=== PATIENT | female | born 1950 | race Caucasian/White ===

== ENCOUNTER 2021-12-22 11:43 | Emergency (ER) | payer MEDICARE, SELFPAY ==
--- NOTE | ~2021-12-22 | CT_ITS ---
EXAMINATION: CT ABDOMEN AND PELVIS WITH CONTRAST CLINICAL INFORMATION: Anorexia with history of ulcerative colitis COMPARISON: None TECHNIQUE: Multidetector volumetric images were obtained from the superior aspect of the liver through the pubic symphysis following administration 100 mL of Omnipaque 350 intravenous contrast. Sagittal and coronal reformatted images were obtained on the technologist's workstation. Oral contrast: No This CT examination was performed using dose optimization techniques as appropriate, variously including the following: *Automated exposure control *Adjustment of mA and/or kV according to patient size (this includes techniques or standardized protocols for targeted exams where dose is matched to indication/reason for exam; i.e. extremities or head) *Use of iterative reconstruction technique DLP: 324 mGy-cm FINDINGS: LUNG BASES: The visualized lung bases are unremarkable. LIVER, GALLBLADDER, AND BILIARY TREE: The liver is normal in size, shape, and attenuation. No focal hepatic lesion or biliary ductal dilatation is present. The gallbladder is unremarkable with no evidence of radiopaque gallstones, gallbladder wall thickening, or obvious pericholecystic inflammatory changes. PANCREAS: Unremarkable. SPLEEN: Unremarkable. Multiple tiny splenic hypodensities are seen which are of no concern. ADRENAL GLANDS: Unremarkable. KIDNEYS AND URETERS: The kidneys are normal in size, shape, and attenuation of parapelvic cyst is present at the upper pole of the right kidney. No solid renal masses. No hydronephrosis, hydroureter, or calculi seen. No perinephric stranding. BLADDER: Unremarkable. GASTROINTESTINAL TRACT: A large stool ball is present in the rectum. The small and large bowel are unremarkable. The appendix is unremarkable. ABDOMINAL WALL: No significant hernia is appreciated. LYMPH NODES: No retroperitoneal lymphadenopathy. VASCULAR: Mild calcific plaque without aneurysm. PELVIC VISCERA: An retroverted uterus is present with some heterogeneity and some punctate calcifications possibly representing fibroids. At least 2 cysts are noted in the right ovary the largest measuring about 2 cm in size. There is a larger 4.9 x 4.7 x 4.7 cm cyst in the left adnexa anteriorly. Pelvic ultrasound would be a much better modality for evaluation. No free intraperitoneal fluid is seen. An abnormal adnexal mass is not seen. OSSEOUS STRUCTURES: Degenerative changes are noted throughout the spine. There is a compression fracture of the superior endplate of L3 which could be acute. There is grade 1 anterolisthesis L4 upon L5. CT/CT abdomen pelvis w IV con IMPRESSION: 1. No acute bowel process. 2. Bilateral ovarian cysts and probable uterine fibroid. Pelvic ultrasound is recommended for further evaluation. 3. Other incidental findings as described above including possible acute compression fracture superior endplate of L3.. Fleischner guidelines were followed.
[2021-12-22 11:46] VITALS: BP 103/70; PULSE 98; RESP 18; TEMP 36.2; O2SAT 99; BMI 18.9
--- NOTE | 2021-12-22 11:47 | ED_ITS ---
HPI - General Adult General Chief complaint: Weakness <Martha Peters MD - Last Filed: 12/22/21 11:56> Stated complaint: Weakness/Not eating <Martha Peters MD - Last Filed: 12/22/21 11:56> Time Seen by Provider: 12/22/21 18:10 <Martha Peters MD - Last Filed: 12/22/21 11:56> Source: patient and family <Mitesh Plasencia MD - Last Filed: 12/23/21 01:00> Mode of arrival: ambulatory <Mitesh Plasencia MD - Last Filed: 12/23/21 01:00> Limitations: no limitations <Mitesh Plasencia MD - Last Filed: 12/23/21 01:00> History of Present Illness HPI narrative: Patient with history of ulcerative colitis never had any colonoscopy comes here for poor appetite for last few months and increased depression. Patient's boyfriend for 40 years in 06/29 since then patient is going downhill feel more depressed does not feel hungry and if she eats fast feel nauseated denies any abdominal pain no diarrhea no blood in the stool patient lost few lb <Mitesh Plasencia MD - Last Filed: 12/23/21 01:00> Related Data Home medications: Previous Rx's Medication Instructions Recorded lorazepam 0.5 mg tablet (Ativan) 0.5 mg PO BEDTIME PRN sleep #14 12/22/21 tabs ondansetron 4 mg disintegrating 4 mg PO Q6-8H PRN nausea and 12/22/21 tablet vomiting #7 tabs pantoprazole 20 mg tablet,delayed 20 mg PO DAILY #30 tabs 12/22/21 release (Protonix) <Martha Peters MD - Last Filed: 12/22/21 11:56> Allergies/adverse reactions: Allergies Allergy/AdvReac Type Severity Reaction Status Date / Time Clinoril Allergy Unknown Rash Verified 11/28/21 15:40 doxycycline AdvReac Unknown VOMITING Verified 11/28/21 15:40 <Martha Peters MD - Last Filed: 12/22/21 11:56> Review of Systems Review of Systems: Yes all other systems are reviewed and are negative <Mitesh Plasencia MD - Last Filed: 12/23/21 01:00> [facility] Social History Social History: Social History Advance Directives: No Advance Directives Information Provided: No <Martha Peters MD - Last Filed: 12/22/21 11:56> Physical Exam ED Vital Signs: Vital Signs - 24 hr 12/22/21 11:46 12/22/21 18:36 Temperature 97.2 F Pulse Rate 98 74 Respiratory Rate 18 14 Blood Pressure 103/70 Pulse Oximetry 99 98 Oxygen Delivery Method Room Air Room Air BMI result Body Mass Index 18.9 <Martha Peters MD - Last Filed: 12/22/21 11:56> Vital Signs - 24 hr 12/22/21 11:46 12/22/21 18:36 Temperature 97.2 F Pulse Rate 98 74 Respiratory Rate 18 14 Blood Pressure 103/70 Pulse Oximetry 99 98 Oxygen Delivery Method Room Air Room Air BMI result Body Mass Index 18.9 <Mitesh Plasencia MD - Last Filed: 12/23/21 01:00> Appearance: Alert. Oriented X3. No acute distress. Cachectic with low muscle mass Eyes: No pallor or icterus ENT: Pharynx normal. Oral Mucosa moist Neck: Normal inspection. Neck supple. CVS: Normal heart rate and rhythm. Pulses normal. Respiratory: No respiratory distress. Equal air entry bilateral, no wheezing/rales/rhonchi Abdomen: Soft and nontender. Bowel sounds are present, no mass palpable Skin: Skin warm and dry. Normal skin color. Normal skin turgor. Extremities: No lower extremity edema. No calf tenderness Neuro: Oriented X 3. No motor deficit. <Mitesh Plasencia MD - Last Filed: 12/23/21 01:00> Course Course Course Narrative: -pt c/o sick for couple of weeks: c/o of [place], weak, lost weight, no diarrhea -1 year gradual weight loss 100lbs, most noticible in last year, denies bloody stool/no black stool, believes she has never had a colonoscopy -fluids dont stay down/ vomiting, no abdominal pain, no URI or UTI symptoms -PMH:hx colitis in the last 2 years -retired 1 month ago, working at [employer] -at baseline, pt able to walk with cane, stand up along, but now too weak, needs asistance to stand up, lives with her son -PE: able to stand with asistance -f/u labs, urine <Martha Peters MD - Last Filed: 12/22/21 11:56> Medications Administered Discontinued Medications Generic Name Dose Route Start Last Admin Trade Name Freq PRN Reason Stop Dose Admin Famotidine 20 mg 12/22/21 18:45 12/22/21 19:37 Famotidine/Pf 20 Mg/2 Ml Vial IVPUSH 12/22/21 18:46 20 mg ONCE ONE Administration Sodium Chloride 1,000 mls @ 999 mls/hr 12/22/21 18:32 12/22/21 22:09 Ns IV 12/22/21 19:32 Infused .Q1H1M ONE Infusion Iohexol 100 ml 12/22/21 19:01 12/22/21 19:02 Iohexol 350 Mg/Ml 100 Ml Infus..Btl IV 12/22/21 19:02 100 ml ONCE ONE Administration Ondansetron HCl 4 mg 12/22/21 18:45 12/22/21 19:37 Ondansetron Hcl 4 Mg/2 Ml Vial IVPUSH 12/22/21 18:46 4 mg ONCE ONE Administration <Martha Peters MD - Last Filed: 12/22/21 11:56> Medications Administered Discontinued Medications Generic Name Dose Route Start Last Admin Trade Name Freq PRN Reason Stop Dose Admin Famotidine 20 mg 12/22/21 18:45 12/22/21 19:37 Famotidine/Pf 20 Mg/2 Ml Vial IVPUSH 12/22/21 18:46 20 mg ONCE ONE Administration Sodium Chloride 1,000 mls @ 999 mls/hr 12/22/21 18:32 12/22/21 22:09 Ns IV 12/22/21 19:32 Infused .Q1H1M ONE Infusion Iohexol 100 ml 12/22/21 19:01 12/22/21 19:02 Iohexol 350 Mg/Ml 100 Ml Infus..Btl IV 12/22/21 19:02 100 ml ONCE ONE Administration Ondansetron HCl 4 mg 12/22/21 18:45 12/22/21 19:37 Ondansetron Hcl 4 Mg/2 Ml Vial IVPUSH 12/22/21 18:46 4 mg ONCE ONE Administration <Mitesh Plasencia MD - Last Filed: 12/23/21 01:00> Medical Decision Making MDM Narrative Medical decision making narrative: Patient with increased depression secondary to loss of her friend for 40 years poor intake likely from depression CT scan of the abdomen was negative for acute pathology will discharge patient home on Ativan Pepcid and Zofran patient stayed with her son will follow with her PCP <Mitesh Plasencia MD - Last Filed: 12/23/21 01:00> Lab Data Lab results reviewed: Yes I reviewed the patient's lab results. <Mitesh Plasencia MD - Last Filed: 12/23/21 01:00> Result diagrams: : 12/22/21 12:12 12/22/21 12:12 <Martha Peters MD - Last Filed: 12/22/21 11:56> Labs: Lab Results 12/22/21 12/22/21 12/22/21 Range/Units 12:12 12:12 12:12 WBC 6.7 (4.8-10.8) X10*3/uL RBC 5.60 H (4.20-5.50) X10*6/uL Hgb 17.5 H (12.0-16.0) g/dl Hct 50.7 H (37.0-47.0) % MCV 90.5 (80.0-98.0) fL MCH 31.3 (27.0-33.0) pg MCHC 34.5 (31.0-35.0) g/dl RDW 13.9 (11.0-16.0) % Plt Count TNP MPV Not Reportable Immature Gran % (Auto) 0.7 H (0.0-0.4) % Neut % (Auto) 80.3 H (45-73) % Lymph % (Auto) 11.3 L (20-40) % [place] % (Auto) 6.3 (2-11) % Eos % (Auto) 0.7 (0-4) % Baso % (Auto) 0.7 (0-2) % Lymph # (Auto) 0.8 L (1.2-4.9) X10*3/uL [place] # (Auto) 0.4 (0.1-1.2) X10*3/uL Eos # (Auto) 0.1 (0.0-0.4) X10*3/uL Baso # (Auto) 0.1 (0.0-0.2) X10*3/uL Abs Immat Gran (auto) 0.05 H (0.00-0.03) X10*3/uL Absolute Neuts (auto) 5.4 (2.0-8.3) x10*3/uL Absolute Nucleated RBC 0.000 (0.0-0.012) X10*3/uL Nucleated RBC % (auto) 0.0 (0.0-0.2) /100WBC Smear Tech's Comments VERIFIED Sodium 137 (135-145) mmol/L Potassium 3.5 (3.3-5.1) mmol/L Chloride 80 L (96-108) mmol/L Carbon Dioxide 26 (22-29) mmol/L Anion Gap 35 H (12-20) BUN 11 (9-16) mg/dL Creatinine 0.96 (0.5-1.4) mg/dL Estim Creat Clear Calc 39.3 Estimated GFR 57 Random Glucose 59 L* (60-115) mg/dL Calcium 9.9 (8.4-10.2) mg/dL Magnesium 1.9 (1.6-2.6) mg/dL Total Bilirubin 1.1 H (0.0-1.0) mg/dL Direct Bilirubin 0.6 H (0.0-0.5) mg/dL AST 38 H (5-31) U/L ALT 29 (0-31) U/L Alkaline Phosphatase 60 (39-117) U/L Troponin I High Sens 38.5 H (<3.5-17.0) ng/L Total Protein 6.8 (6.5-8.0) g/dL Albumin 4.3 (3.5-5.0) g/dL Lipase 20 (8-78) U/L COVID-19 (CHARISSA) (Negative) COVID-19 Clin Com 12/22/21 Range/Units 12:12 WBC (4.8-10.8) X10*3/uL RBC (4.20-5.50) X10*6/uL Hgb (12.0-16.0) g/dl Hct (37.0-47.0) % MCV (80.0-98.0) fL MCH (27.0-33.0) pg MCHC (31.0-35.0) g/dl RDW (11.0-16.0) % Plt Count MPV Immature Gran % (Auto) (0.0-0.4) % Neut % (Auto) (45-73) % Lymph % (Auto) (20-40) % [place] % (Auto) (2-11) % Eos % (Auto) (0-4) % Baso % (Auto) (0-2) % Lymph # (Auto) (1.2-4.9) X10*3/uL [place] # (Auto) (0.1-1.2) X10*3/uL Eos # (Auto) (0.0-0.4) X10*3/uL Baso # (Auto) (0.0-0.2) X10*3/uL Abs Immat Gran (auto) (0.00-0.03) X10*3/uL Absolute Neuts (auto) (2.0-8.3) x10*3/uL Absolute Nucleated RBC (0.0-0.012) X10*3/uL Nucleated RBC % (auto) (0.0-0.2) /100WBC Smear Tech's Comments Sodium (135-145) mmol/L Potassium (3.3-5.1) mmol/L Chloride (96-108) mmol/L Carbon Dioxide (22-29) mmol/L Anion Gap (12-20) BUN (9-16) mg/dL Creatinine (0.5-1.4) mg/dL Estim Creat Clear Calc Estimated GFR Random Glucose (60-115) mg/dL Calcium (8.4-10.2) mg/dL Magnesium (1.6-2.6) mg/dL Total Bilirubin (0.0-1.0) mg/dL Direct Bilirubin (0.0-0.5) mg/dL AST (5-31) U/L ALT (0-31) U/L Alkaline Phosphatase (39-117) U/L Troponin I High Sens (<3.5-17.0) ng/L Total Protein (6.5-8.0) g/dL Albumin (3.5-5.0) g/dL Lipase (8-78) U/L COVID-19 (CHARISSA) Negative (Negative) COVID-19 Clin Com See Note <Martha Peters MD - Last Filed: 12/22/21 11:56> Lab Results 12/22/21 12/22/21 12/22/21 Range/Units 12:12 12:12 12:12 WBC 6.7 (4.8-10.8) X10*3/uL RBC 5.60 H (4.20-5.50) X10*6/uL Hgb 17.5 H (12.0-16.0) g/dl Hct 50.7 H (37.0-47.0) % MCV 90.5 (80.0-98.0) fL MCH 31.3 (27.0-33.0) pg MCHC 34.5 (31.0-35.0) g/dl RDW 13.9 (11.0-16.0) % Plt Count TNP MPV Not Reportable Immature Gran % (Auto) 0.7 H (0.0-0.4) % Neut % (Auto) 80.3 H (45-73) % Lymph % (Auto) 11.3 L (20-40) % [place] % (Auto) 6.3 (2-11) % Eos % (Auto) 0.7 (0-4) % Baso % (Auto) 0.7 (0-2) % Lymph # (Auto) 0.8 L (1.2-4.9) X10*3/uL [place] # (Auto) 0.4 (0.1-1.2) X10*3/uL Eos # (Auto) 0.1 (0.0-0.4) X10*3/uL Baso # (Auto) 0.1 (0.0-0.2) X10*3/uL Abs Immat Gran (auto) 0.05 H (0.00-0.03) X10*3/uL Absolute Neuts (auto) 5.4 (2.0-8.3) x10*3/uL Absolute Nucleated RBC 0.000 (0.0-0.012) X10*3/uL Nucleated RBC % (auto) 0.0 (0.0-0.2) /100WBC Smear Tech's Comments VERIFIED Sodium 137 (135-145) mmol/L Potassium 3.5 (3.3-5.1) mmol/L Chloride 80 L (96-108) mmol/L Carbon Dioxide 26 (22-29) mmol/L Anion Gap 35 H (12-20) BUN 11 (9-16) mg/dL Creatinine 0.96 (0.5-1.4) mg/dL Estim Creat Clear Calc 39.3 Estimated GFR 57 Random Glucose 59 L* (60-115) mg/dL Calcium 9.9 (8.4-10.2) mg/dL Magnesium 1.9 (1.6-2.6) mg/dL Total Bilirubin 1.1 H (0.0-1.0) mg/dL Direct Bilirubin 0.6 H (0.0-0.5) mg/dL AST 38 H (5-31) U/L ALT 29 (0-31) U/L Alkaline Phosphatase 60 (39-117) U/L Troponin I High Sens 38.5 H (<3.5-17.0) ng/L Total Protein 6.8 (6.5-8.0) g/dL Albumin 4.3 (3.5-5.0) g/dL Lipase 20 (8-78) U/L COVID-19 (CHARISSA) (Negative) COVID-19 Clin Com 12/22/21 Range/Units 12:12 WBC (4.8-10.8) X10*3/uL RBC (4.20-5.50) X10*6/uL Hgb (12.0-16.0) g/dl Hct (37.0-47.0) % MCV (80.0-98.0) fL MCH (27.0-33.0) pg MCHC (31.0-35.0) g/dl RDW (11.0-16.0) % Plt Count MPV Immature Gran % (Auto) (0.0-0.4) % Neut % (Auto) (45-73) % Lymph % (Auto) (20-40) % [place] % (Auto) (2-11) % Eos % (Auto) (0-4) % Baso % (Auto) (0-2) % Lymph # (Auto) (1.2-4.9) X10*3/uL [place] # (Auto) (0.1-1.2) X10*3/uL Eos # (Auto) (0.0-0.4) X10*3/uL Baso # (Auto) (0.0-0.2) X10*3/uL Abs Immat Gran (auto) (0.00-0.03) X10*3/uL Absolute Neuts (auto) (2.0-8.3) x10*3/uL Absolute Nucleated RBC (0.0-0.012) X10*3/uL Nucleated RBC % (auto) (0.0-0.2) /100WBC Smear Tech's Comments Sodium (135-145) mmol/L Potassium (3.3-5.1) mmol/L Chloride (96-108) mmol/L Carbon Dioxide (22-29) mmol/L Anion Gap (12-20) BUN (9-16) mg/dL Creatinine (0.5-1.4) mg/dL Estim Creat Clear Calc Estimated GFR Random Glucose (60-115) mg/dL Calcium (8.4-10.2) mg/dL Magnesium (1.6-2.6) mg/dL Total Bilirubin (0.0-1.0) mg/dL Direct Bilirubin (0.0-0.5) mg/dL AST (5-31) U/L ALT (0-31) U/L Alkaline Phosphatase (39-117) U/L Troponin I High Sens (<3.5-17.0) ng/L Total Protein (6.5-8.0) g/dL Albumin (3.5-5.0) g/dL Lipase (8-78) U/L COVID-19 (CHARISSA) Negative (Negative) COVID-19 Clin Com See Note <Mitesh Plasencia MD - Last Filed: 12/23/21 01:00> ECG Data Attestation: I personally reviewed and interpreted this ECG as follows: <Mitesh Plasencia MD - Last Filed: 12/23/21 01:00> Interpretation: Normal sinus rhythm heart rate 94 beats per minute nonspecific ST T wave changes left axis deviation no acute ischemia <Mitesh Plasencia MD - Last Filed: 12/23/21 01:00> Discharge Plan Discharge Clinical Impression: Failure to thrive <Martha Peters MD - Last Filed: 12/22/21 11:56> Patient Disposition: Home, Self-Care <Martha Peters MD - Last Filed: 12/22/21 11:56> Instructions: Grief and Loss (ED), Depression in Older Adults (ED) <Martha Peters MD - Last Filed: 12/22/21 11:56> Additional Instructions: Take medication to relax and nausea as prescribed Drink plenty of fluids Follow-up with your PCP for further management <Martha Peters MD - Last Filed: 12/22/21 11:56> Prescriptions: New lorazepam [Ativan] 0.5 mg tablet 0.5 mg PO BEDTIME PRN (Reason: sleep) Qty: 14 0RF ondansetron 4 mg tablet,disintegrating 4 mg PO Q6-8H PRN (Reason: nausea and vomiting) Qty: 7 0RF pantoprazole [Protonix] 20 mg tablet,delayed release (DR/EC) 20 mg PO DAILY Qty: 30 0RF <Martha Peters MD - Last Filed: 12/22/21 11:56> Interventions: ED Discharge Assessment Last Done: 12/22/21 22:02 <Martha Peters MD - Last Filed: 12/22/21 11:56> Discharge Date/Time: 12/22/21 22:06 <Martha Peters MD - Last Filed: 12/22/21 11:56>
--- NOTE | 2021-12-22 11:50 | ECG_ITS ---
Test Reason : Weakness Blood Pressure : / mmHG Vent. Rate : 094 BPM Atrial Rate : 094 BPM P-R Int : 138 ms QRS Dur : 078 ms QT Int : 362 ms P-R-T Axes : 086 -68 109 degrees QTc Int : 452 ms Normal sinus rhythm Left anterior fascicular block ST & T wave abnormality, consider lateral ischemia Abnormal ECG No previous ECGs available Referred By: Martha Peters Electronically Signed By:JOCELYN FIELDS MD
[2021-12-22 12:23] LABS: Basophils Absolute Auto 0.1 X10*3/uL (0.0-0.2); Basophils Percent Auto 0.7 % (0-2); Imm Gran Abs Auto 0.05 X10*3/uL (0.00-0.03); Imm Gran Pct Auto 0.7 % (0.0-0.4); MANUAL DIFF FLAG SCAN; Monocytes Absolute Auto 0.4 X10*3/uL (0.1-1.2); PLT CLUMP 1; SCAN SMEAR FLAG 1
[2021-12-22 12:25] LABS: Eosinophils Absolute Auto 0.1 X10*3/uL (0.0-0.4); Eosinophils Percent Auto 0.7 % (0-4); Hematocrit 50.7 % (37.0-47.0); Hemoglobin 17.5 g/dl (12.0-16.0); Lymphocytes Absolute Auto 0.8 X10*3/uL (1.2-4.9); Lymphocytes Percent Auto 11.3 % (20-40); Mean Corpuscular HGB Conc 34.5 g/dl (31.0-35.0); Mean Corpuscular Hemoglobin 31.3 pg (27.0-33.0); Mean Corpuscular Volume 90.5 fL (80.0-98.0); Monocytes Percent Auto 6.3 % (2-11); Neutrophils Absolute Auto 5.4 x10*3/uL (2.0-8.3); Neutrophils Percent Auto 80.3 % (45-73); Red Cell Distribution Width 13.9 % (11.0-16.0)
[2021-12-22 12:50] LABS: Troponin-I High Sensitivity 38.5 ng/L (<3.5-17.0); White Blood Count 6.7 X10*3/uL (4.8-10.8)
[2021-12-22 12:51] LABS: SLIDE REVIEW VERIFIED
[2021-12-22 12:54] LABS: COVID-19 Test Negative (Negative); IDNOW Serial# 55D5AD1C
[2021-12-22 13:02] LABS: Alanine Aminotransferase 29 U/L (0-31); Albumin Level 4.3 g/dL (3.5-5.0); Alkaline Phosphatase 60 U/L (39-117); Anion Gap 35 (12-20); Aspartate Amino Transferase 38 U/L (5-31); Bilirubin Direct 0.6 mg/dL (0.0-0.5); Bilirubin Total 1.1 mg/dL (0.0-1.0); Blood Urea Nitrogen 11 mg/dL (9-16); Calcium 9.9 mg/dL (8.4-10.2); Carbon Dioxide 26 mmol/L (22-29); Chloride 80 mmol/L (96-108); Creatinine Clr Calc Pharmacy 39.3; Estimated Glomerular Filt Rate 57; Glucose Random 59 mg/dL (60-115); Lipase 20 U/L (8-78); Magnesium 1.9 mg/dL (1.6-2.6); Potassium 3.5 mmol/L (3.3-5.1); Sodium 137 mmol/L (135-145); Total Protein 6.8 g/dL (6.5-8.0)
[2021-12-22 18:36] VITALS: PULSE 74; RESP 14; O2SAT 98
[2021-12-22] MEDS: iohexoL 350 MG/ML 100 ML INFUS..BTL IV (19:02)
[2021-12-22] MEDS: Famotidine/PF 20 MG/2 ML VIAL IVPUSH (19:37)
[2021-12-22] MEDS: 0.9 % Sodium Chloride 1,000 ML 999 ML IV (19:37)
[2021-12-22] MEDS: ondansetron HCL 4 MG/2 ML VIAL IVPUSH (19:37)
== END 2021-12-22 22:06 | disposition home or self-care (01) ==
PROVIDERS: Emergency Medicine; Emergency Provider Internal Medicine; PCP Internal Medicine
DX: R62.7 Adult failure to thrive (principal); Z68.1 Body mass index [BMI] 19.9 or less, adult; R53.1 Weakness; F32.A Depression, unspecified; Z79.899 Other long term (current) drug therapy; Z20.822 Contact with and (suspected) exposure to COVID-19
CPT/HCPCS: 74177; 80048; 80076; 83690; 83735; 84484; 85025; 87635; 93005; 96361; 96374; 96375; 99284; J2405; Q9967

== ENCOUNTER 2021-12-30 09:28 | Inpatient (IN) | payer MEDICARE, SELFPAY ==
[2021-12-30 09:34] VITALS: BP 130/72; BP 146/84; PULSE 101; PULSE 97; RESP 17; TEMP 36.3; O2SAT 97; O2SAT 98; BMI 18.1
[2021-12-30 09:42] LABS: Glucose, Whole Blood 55 mg/dL (60-115)
--- NOTE | 2021-12-30 09:47 | ECG_ITS ---
Test Reason : WEAKNESS Blood Pressure : / mmHG Vent. Rate : 091 BPM Atrial Rate : 091 BPM P-R Int : 148 ms QRS Dur : 078 ms QT Int : 360 ms P-R-T Axes : 083 -56 099 degrees QTc Int : 442 ms Normal sinus rhythm RSR' or QR pattern in V1 suggests right ventricular conduction delay Left anterior fascicular block T wave abnormality, consider lateral ischemia Abnormal ECG When compared with ECG of 22-DEC-2021 11:58, Questionable change in initial forces of Septal leads Referred By: Larissa Putnam Electronically Signed By:JOCELYN FIELDS MD
--- NOTE | 2021-12-30 09:55 | ED_ITS ---
HPI - General Adult General Chief complaint: Nausea/Vomiting/Diarrhea Stated complaint: NAUSEA,VOMITING X'S WEEKS,LOW BS 52 PER EMS Time Seen by Provider: 12/30/21 09:36 Source: patient Mode of arrival: EMS Limitations: no limitations History of Present Illness HPI narrative: Patient is a 71-year-old female presents to emergency department for ongoing nausea vomiting and poor appetite over the past few weeks. She states that she was seen here recently for the same but she feels as though things are not impro ving. She continues to not have any appetite, feels nauseated any time she eats, she states I can not go on like this also reporting depression without any suicidal ideations. has associated generalized weakness. Reports that she lives at home with her son who does help her a lot. Denies fevers, chills, Headache, chest pain, shortness of breath, difficulty breathing, numbness or tingling in the extremities. Related Data Previous Rx's Medication Instructions Recorded ondansetron 4 mg disintegrating 4 mg PO Q6-8H PRN nausea and 12/22/21 tablet vomiting #7 tabs Allergies Allergy/AdvReac Type Severity Reaction Status Date / Time Clinoril Allergy Unknown Rash Verified 11/28/21 15:40 doxycycline AdvReac Unknown VOMITING Verified 11/28/21 15:40 Review of Systems Review of Systems: Constitutional: Positive weight loss. No fever. No chills. positive weakness. positive fatigue. Eye: No swelling. No redness. ENT: No sore throat. No rhinorrhea. No nasal congestion. No sore throat. No difficulty swallowing. Skin: No rash. No itching. Cardiovascular: No chest pain. No chest pressure. No palpitations. Respiratory: No shortness of breath. No cough. No sputum production. Gastrointestinal: positive anorexia. positive nausea. positive vomiting. No diarrhea. No abdominal pain. No blood in stool. Genitourinary: No burning micturition. No urinary frequency. No incontinence. Neurologic: No headache. No pre-syncope/ syncope. No unilateral weakness. No ataxia. No numbness. No tingling. No change in bowel or bladder control. Musculoskeletal: No muscle pain. No back pain. No joint pain. No stiffness. Psychiatric: positive depression. No anxiety. [facility] Past Medical History Attestation statement: The following information was validated with the patient. Source: old records reviewed Social History Social History Household Members: Children Housing: House Do you presently have visiting nurse or other home services: No Patient Tobacco Use Status: Never used Tobacco Substance Use Type: Marijuana Substance Use Frequency: Occasionally Last Used Substance: Weeks (ago) Currently Displaying Signs/Symptoms of Drug Intoxication Withdrawal: No Any prior treatment program specific to substance use: No Have you been hit, kicked, punched, or otherwise hurt by someone within the past year? If so, by whom?: No Do you feel safe in your current relationship?: No Is there a partner from a previous relationship who is making you feel unsafe now?: No Are you made to feel afraid or neglected: No Advance Directives: No Advance Directives Information Provided: Yes Do you have thoughts of harming others: None Do you have a plan to hurt others: No Plan Recently lost weight without trying: Yes How much weight loss: Unsure Eating poorly because of decreased appetite: Yes Nutrition screen score: 5 Nutrition Risks: Poor intake 0-25% >4 days Patient : No : No Poor oral hygiene: No Physical Exam ED Vital Signs: Vital Signs - 24 hr 12/30/21 09:34 12/30/21 12:05 Temperature 97.3 F Pulse Rate 97 93 Respiratory Rate 17 24 H Blood Pressure 130/72 130/84 Pulse Oximetry 97 99 Oxygen Delivery Method Room Air Room Air BMI result Body Mass Index 18.1 Appearance: Alert.?Oriented to person, place and time. No acute distress.? frail cachectic elderly woman Eyes: Pupils equal, round and reactive to light.? EOMI. No nystagmus. No icterus ENT: Pharynx normal. oral mucosa is pink and moist Neck: Normal inspection.? Neck supple.?? CVS: Heart sounds normal. Normal heart rate and rhythm.? Pulses normal.?? Respiratory: No respiratory distress.? Lung sounds clear to auscultation bilaterally?? Abdomen: flat, Soft and non-tender. Normoactive bowel sounds. Skin: Skin warm and dry.? Normal skin color.? Extremities: No lower extremity edema.? No calf ttp? Neuro: Moves all extremities spontaneously. Sensation intact bilaterally. No focal neuro deficits. Ambulates with normal steady gait. Course Course Course Narrative: patient is a 71-year-old female with a past medical history of ulcerative colitis presenting to emergency department for evaluation of failure to thrive. Ongoing lack of appetite, nausea, depression. Was seen in the emergency department 1 week ago 12/22/2021 with same complaints. She denies any new symptoms, she simply states she is not getting any better, and she cannot go on like this. Abdominal examination is benign. She is certainly frail and cachectic upon examination. Requiring assistance with position changing and ambulation. In her prior ED visit had CT of the abdomen which revealed no acute pathology. She was ultimately discharged home with a new prescription for lorazepam, Pepcid, and Zofran and advised to follow-up with her primary care provider which she has not yet done. reports she has not seen her PCP since before the pandemic, has been unable to schedule a follow-up appointment with her, it is unclear whether she actually contacted the office. Endorsing depression but not reporting any suicidal ideations. at this time will obtain labs, urinalysis, patient to receive ondansetron IV, 1 L normal saline IV, and Pepcid IV. Discussed with patient This continues to be likely consistent with adult failure to thrive, after workup today if no acute changes, would refer to Case Management/Physical therapy to determine whether short-term rehab is warranted at this time given her weakness. Reevaluation(s) Reevaluation #1: Hypoglycemia, took oral glucose gel while en route to hospital, provided with o range juice and crackers as well and she is refusing to eat or drink. will be given D50 through IV and Repeat glucose. EKG revealing normal sinus rhythm, appears unchanged and compared to prior EKG at past visit 1 Week ago. Troponin is 40.2, comparable to prior 12/22 at 38.5, no chest pain, unlikely ACS. Time: 12:14 Reevaluation #2: Urinalysis consistent with urinary tract infection, patient remains unable to tolerate oral intake. although no leukocytosis, heart rate has been above 90, and had mild tachypnea will obtain lactic acid and blood cultures prior to antibiotics. Attempted drinking small amount of water followed by emesis afterwards. Patient to receive IV ceftriaxone, will speak with hospitalist about admission, Given intractable N/V, likely be unable to tolerate oral antibiotic. Time: 15:01 Reevaluation #3: spoke with hospitalist Gonzalo Carmona [employer] who accepts patient for admission to medicine service. Patient updated on plan of care and is agreeable. Medications Administered Generic Name Dose Route Start Last Admin Trade Name Freq PRN Reason Stop Dose Admin Enoxaparin Sodium 40 mg 12/30/21 16:00 12/30/21 16:43 Enoxaparin Sodium 40 Mg/0.4 Ml Syringe SUBCUT 40 mg Q24H NANDINI Administration Dextrose/Sodium Chloride 1,000 mls @ 100 mls/hr 12/30/21 15:30 12/30/21 16:43 D5ns IVCONT 100 mls/hr .Q10H NANDINI Administration Ceftriaxone Sodium 1 gm/ 50 mls @ 100 mls/hr 12/30/21 16:00 12/30/21 16:42 Sodium Chloride IV Infused Q24H NANDINI Infusion Sodium Chloride 3 ml 12/30/21 16:00 12/30/21 17:02 0.9 % Sodium Chloride Flush 3 Ml Syringe IVFLUSH Not Given QSHIFT NANDINI Discontinued Medications Generic Name Dose Route Start Last Admin Trade Name Freq PRN Reason Stop Dose Admin Dextrose 25 gm 12/30/21 12:13 12/30/21 12:19 Dextrose 50 % 25 Gm/50 Ml Syringe IVPUSH 12/30/21 12:14 25 gm ONCE ONE Administration Famotidine 20 mg 12/30/21 09:47 12/30/21 10:23 Famotidine/Pf 20 Mg/2 Ml Vial IVPUSH 12/30/21 09:48 20 mg ONCE ONE Administration Sodium Chloride 1,000 mls @ 999 mls/hr 12/30/21 10:00 12/30/21 12:38 Ns IV 12/30/21 11:00 Infused .Q1H1M NANDINI Infusion Influenza Virus Vaccine 0.5 ml 12/30/21 16:58 12/30/21 17:19 Flu Vacc [id number](6mos Up)/Pf 0.5 Ml Syringe IM 12/30/21 16:59 0.5 ml .ONCE ONE Administration Metoclopramide HCl 10 mg 12/30/21 15:04 12/30/21 16:09 Metoclopramide Hcl 10 Mg/2 Ml Vial IVPUSH 12/30/21 15:05 10 mg ONCE ONE Administration Ondansetron HCl 4 mg 12/30/21 09:45 11/22/22 10:24 Ondansetron Hcl 4 Mg/2 Ml Vial IVPUSH 12/30/21 09:46 4 mg ONCE ONE Administration Medical Decision Making Medical Records Medical records reviewed: Yes I reviewed the patient's medical records. Lab Data Lab results reviewed: Yes I reviewed the patient's lab results. Result diagrams: 12/30/21 10:24 12/30/21 11:09 Labs: Lab Results 12/30/21 12/30/21 12/30/21 Range/Units 09:37 10:24 10:24 WBC 6.4 (4.8-10.8) X10*3/uL RBC 5.43 (4.20-5.50) X10*6/uL Hgb 16.6 H (12.0-16.0) g/dl Hct 48.5 H (37.0-47.0) % MCV 89.3 (80.0-98.0) fL MCH 30.6 (27.0-33.0) pg MCHC 34.2 (31.0-35.0) g/dl RDW 14.2 (11.0-16.0) % Plt Count 218 (160-400) X10*3/uL MPV 11.4 (9.4-12.3) fL Immature Gran % (Auto) 0.5 H (0.0-0.4) % Neut % (Auto) 77.7 H (45-73) % Lymph % (Auto) 11.1 L (20-40) % [place] % (Auto) 9.6 (2-11) % Eos % (Auto) 0.3 (0-4) % Baso % (Auto) 0.8 (0-2) % Lymph # (Auto) 0.7 L (1.2-4.9) X10*3/uL [place] # (Auto) 0.6 (0.1-1.2) X10*3/uL Eos # (Auto) 0.0 (0.0-0.4) X10*3/uL Baso # (Auto) 0.1 (0.0-0.2) X10*3/uL Abs Immat Gran (auto) 0.03 (0.00-0.03) X10*3/uL Absolute Neuts (auto) 5.0 (2.0-8.3) x10*3/uL Absolute Nucleated RBC 0.020 H (0.0-0.012) X10*3/uL Nucleated RBC % (auto) 0.3 H (0.0-0.2) /100WBC Sodium (135-145) mmol/L Potassium (3.3-5.1) mmol/L Chloride (96-108) mmol/L Carbon Dioxide (22-29) mmol/L Anion Gap (12-20) BUN (9-16) mg/dL Creatinine (0.5-1.4) mg/dL Estim Creat Clear Calc Estimated GFR POC Glucose 55 L* (60-115) mg/dL Random Glucose (60-115) mg/dL Calcium (8.4-10.2) mg/dL Magnesium (1.6-2.6) mg/dL Total Bilirubin (0.0-1.0) mg/dL AST (5-31) U/L ALT (0-31) U/L Alkaline Phosphatase (39-117) U/L Troponin I High Sens (<3.5-17.0) ng/L Total Protein (6.5-8.0) g/dL Albumin (3.5-5.0) g/dL Lipase (8-78) U/L Urine Color Urine Appearance Urine pH (5.0-9.0) Ur Specific [place] (1.005-1.025) Urine Protein (Neg-Trace) mg/dL Urine Glucose (UA) (Negative) mg/dL Urine Ketones (Negative) mg/dL Urine Blood (Negative) Urine Nitrite (Negative) Ur Leukocyte Esterase (Negative) Urine RBC (0-2) /HPF Urine WBC (0-5) /HPF Ur Squamous Epith Cells (0-2) /HPF Urine Bacteria (None Seen) Hyaline Casts (0-2) /LPF COVID-19 (CHARISSA) Negative (Negative) COVID-19 Clin Com See Note Influenza Type A (PRACHI) (Negative) Influenza Type B (PARCHI) (Negative) Influenza A & B Note 12/30/21 12/30/21 12/30/21 Range/Units 10:24 10:24 11:09 WBC (4.8-10.8) X10*3/uL RBC (4.20-5.50) X10*6/uL Hgb (12.0-16.0) g/dl Hct (37.0-47.0) % MCV (80.0-98.0) fL MCH (27.0-33.0) pg MCHC (31.0-35.0) g/dl RDW (11.0-16.0) % Plt Count (160-400) X10*3/uL MPV (9.4-12.3) fL Immature Gran % (Auto) (0.0-0.4) % Neut % (Auto) (45-73) % Lymph % (Auto) (20-40) % [place] % (Auto) (2-11) % Eos % (Auto) (0-4) % Baso % (Auto) (0-2) % Lymph # (Auto) (1.2-4.9) X10*3/uL [place] # (Auto) (0.1-1.2) X10*3/uL Eos # (Auto) (0.0-0.4) X10*3/uL Baso # (Auto) (0.0-0.2) X10*3/uL Abs Immat Gran (auto) (0.00-0.03) X10*3/uL Absolute Neuts (auto) (2.0-8.3) x10*3/uL Absolute Nucleated RBC (0.0-0.012) X10*3/uL Nucleated RBC % (auto) (0.0-0.2) /100WBC Sodium 139 (135-145) mmol/L Potassium 3.5 (3.3-5.1) mmol/L Chloride 89 L (96-108) mmol/L Carbon Dioxide 21 L (22-29) mmol/L Anion Gap 33 H (12-20) BUN 6 L (9-16) mg/dL Creatinine 0.90 (0.5-1.4) mg/dL Estim Creat Clear Calc 42.8 Estimated GFR > 60 POC Glucose (60-115) mg/dL Random Glucose 49 L* (60-115) mg/dL Calcium 9.1 D (8.4-10.2) mg/dL Magnesium 2.1 (1.6-2.6) mg/dL Total Bilirubin 0.9 (0.0-1.0) mg/dL AST 36 H (5-31) U/L ALT 35 H (0-31) U/L Alkaline Phosphatase 52 (39-117) U/L Troponin I High Sens 40.2 H (<3.5-17.0) ng/L Total Protein 6.0 L (6.5-8.0) g/dL Albumin 3.7 (3.5-5.0) g/dL Lipase 20 (8-78) U/L Urine Color Urine Appearance Urine pH (5.0-9.0) Ur Specific [place] (1.005-1.025) Urine Protein (Neg-Trace) mg/dL Urine Glucose (UA) (Negative) mg/dL Urine Ketones (Negative) mg/dL Urine Blood (Negative) Urine Nitrite (Negative) Ur Leukocyte Esterase (Negative) Urine RBC (0-2) /HPF Urine WBC (0-5) /HPF Ur Squamous Epith Cells (0-2) /HPF Urine Bacteria (None Seen) Hyaline Casts (0-2) /LPF COVID-19 (CHARISSA) (Negative) COVID-19 Clin Com Influenza Type A (PRACHI) Negative (Negative) Influenza Type B (PRACHI) Negative (Negative) Influenza A & B Note See Note 12/30/21 12/30/21 Range/Units 12:54 14:35 WBC (4.8-10.8) X10*3/uL RBC (4.20-5.50) X10*6/uL Hgb (12.0-16.0) g/dl Hct (37.0-47.0) % MCV (80.0-98.0) fL MCH (27.0-33.0) pg MCHC (31.0-35.0) g/dl RDW (11.0-16.0) % Plt Count (160-400) X10*3/uL MPV (9.4-12.3) fL Immature Gran % (Auto) (0.0-0.4) % Neut % (Auto) (45-73) % Lymph % (Auto) (20-40) % [place] % (Auto) (2-11) % Eos % (Auto) (0-4) % Baso % (Auto) (0-2) % Lymph # (Auto) (1.2-4.9) X10*3/uL [place] # (Auto) (0.1-1.2) X10*3/uL Eos # (Auto) (0.0-0.4) X10*3/uL Baso # (Auto) (0.0-0.2) X10*3/uL Abs Immat Gran (auto) (0.00-0.03) X10*3/uL Absolute Neuts (auto) (2.0-8.3) x10*3/uL Absolute Nucleated RBC (0.0-0.012) X10*3/uL Nucleated RBC % (auto) (0.0-0.2) /100WBC Sodium (135-145) mmol/L Potassium (3.3-5.1) mmol/L Chloride (96-108) mmol/L Carbon Dioxide (22-29) mmol/L Anion Gap (12-20) BUN (9-16) mg/dL Creatinine (0.5-1.4) mg/dL Estim Creat Clear Calc Estimated GFR POC Glucose 161 H (60-115) mg/dL Random Glucose (60-115) mg/dL Calcium (8.4-10.2) mg/dL Magnesium (1.6-2.6) mg/dL Total Bilirubin (0.0-1.0) mg/dL AST (5-31) U/L ALT (0-31) U/L Alkaline Phosphatase (39-117) U/L Troponin I High Sens (<3.5-17.0) ng/L Total Protein (6.5-8.0) g/dL Albumin (3.5-5.0) g/dL Lipase (8-78) U/L Urine Color Yellow Urine Appearance Cloudy Urine pH 7.0 (5.0-9.0) Ur Specific [place] <= 1.005 (1.005-1.025) Urine Protein Negative (Neg-Trace) mg/dL Urine Glucose (UA) 100 H (Negative) mg/dL Urine Ketones 80 (Negative) mg/dL Urine Blood Small (1+) H (Negative) Urine Nitrite Positive H (Negative) Ur Leukocyte Esterase Large (3+) H (Negative) Urine RBC 11-20 H (0-2) /HPF Urine WBC >50 H (0-5) /HPF Ur Squamous Epith Cells 0-2 (0-2) /HPF Urine Bacteria 4+ (None Seen) Hyaline Casts 6-10 (0-2) /LPF COVID-19 (CHARISSA) (Negative) COVID-19 Clin Com Influenza Type A (PRACHI) (Negative) Influenza Type B (PRACHI) (Negative) Influenza A & B Note ECG Data Attestation: I personally reviewed and interpreted this ECG as follows: Prior ECG tracings: available for review Interpretation: Rate: 91 Rhythm:? normal sinus rhythm [place]:? normal Normal P waves.? Normal JAMIA.?? Normal QRS complex.?? ST T wave :?? no ST elevation, no ST depression qTC: 442 prior studies:? December 2021 The study has been interpreted contemporaneously by me. Discharge Plan Discharge Clinical Impression: Urinary tract infection, Adult failure to thrive Patient Disposition: Admitted As Inpatient Interventions: Admission Worksheet (ED) Last Done: 12/30/21 16:30 Discharge Date/Time: 12/30/21 16:30
[2021-12-30] MEDS: Famotidine/PF 20 MG/2 ML VIAL IVPUSH ×2 (10:23→19:17)
[2021-12-30] MEDS: 0.9 % Sodium Chloride 1,000 ML 999 ML IV (10:23)
[2021-12-30] MEDS: ondansetron HCL 4 MG/2 ML VIAL IVPUSH (10:24)
[2021-12-30 10:31] LABS: MANUAL DIFF FLAG NO
[2021-12-30 10:34] LABS: Basophils Absolute Auto 0.1 X10*3/uL (0.0-0.2); Basophils Percent Auto 0.8 % (0-2); Eosinophils Percent Auto 0.3 % (0-4); Hematocrit 48.5 % (37.0-47.0); Hemoglobin 16.6 g/dl (12.0-16.0); Imm Gran Abs Auto 0.03 X10*3/uL (0.00-0.03); Imm Gran Pct Auto 0.5 % (0.0-0.4); Lymphocytes Absolute Auto 0.7 X10*3/uL (1.2-4.9); Lymphocytes Percent Auto 11.1 % (20-40); Mean Corpuscular HGB Conc 34.2 g/dl (31.0-35.0); Mean Corpuscular Hemoglobin 30.6 pg (27.0-33.0); Mean Corpuscular Volume 89.3 fL (80.0-98.0); Mean Platelet Volume 11.4 fL (9.4-12.3); Monocytes Absolute Auto 0.6 X10*3/uL (0.1-1.2); Monocytes Percent Auto 9.6 % (2-11); NRBC Pct Auto 0.3 /100WBC (0.0-0.2); Neutrophils Percent Auto 77.7 % (45-73); Platelet Count 218 X10*3/uL (160-400); Red Blood Count 5.43 X10*6/uL (4.20-5.50); Red Cell Distribution Width 14.2 % (11.0-16.0); White Blood Count 6.4 X10*3/uL (4.8-10.8)
[2021-12-30 10:53] LABS: COVID-19 Test Negative (Negative)
[2021-12-30 10:58] LABS: Troponin-I High Sensitivity 40.2 ng/L (<3.5-17.0)
--- NOTE | 2021-12-30 11:10 | PC.NURSE ---
Addendum entered by Solis Gatica 12/30/21 13:02: POC rechecked provider aware. Addendum entered by Solis Gatica 12/30/21 12:42: Patient education provided by this RN and provider on the importance of eating/drinking snacks provided because of the low blood sugar. Dextrose IV push ordered by provider. Addendum entered by Solis Gatica 12/30/21 12:41: Patient failed to eat/ drink. Provider made aware of situation. Original Note: Provider aware of POC instructed to give medications and then we gave orange juice and apple sauce
[2021-12-30 11:13] LABS: IDNOW Serial# BCCEAD1C; Influenza A Negative (Negative); Influenza B2 Negative (Negative)
[2021-12-30 11:40] LABS: Alanine Aminotransferase 35 U/L (0-31); Albumin Level 3.7 g/dL (3.5-5.0); Alkaline Phosphatase 52 U/L (39-117); Anion Gap 33 (12-20); Aspartate Amino Transferase 36 U/L (5-31); Bilirubin Total 0.9 mg/dL (0.0-1.0); Blood Urea Nitrogen 6 mg/dL (9-16); Calcium 9.1 mg/dL (8.4-10.2); Carbon Dioxide 21 mmol/L (22-29); Chloride 89 mmol/L (96-108); Creatinine Clr Calc Pharmacy 42.8; Estimated Glomerular Filt Rate > 60; Glucose Random 49 mg/dL (60-115); Lipase 20 U/L (8-78); Magnesium 2.1 mg/dL (1.6-2.6); Potassium 3.5 mmol/L (3.3-5.1); Sodium 139 mmol/L (135-145)
[2021-12-30 12:05] VITALS: BP 130/84; PULSE 93; RESP 24; O2SAT 99
[2021-12-30] MEDS: Dextrose 50 % 25 GM/50 ML SYRINGE IVPUSH (12:19)
[2021-12-30 12:58] LABS: Glucose, Whole Blood 161 mg/dL (60-115)
[2021-12-30 14:44] LABS: Appearance Urine Cloudy; Color Urine Yellow; Glucose Urine UA 100 mg/dL (Negative); Leukocyte Esterase Urine Large (3+) (Negative); Nitrite Urine Positive (Negative); Specific Gravity - Urine <= 1.005 (1.005-1.025); UMIC TRIGGER UACC YES; Urine Blood Small (1+) (Negative); Urine Ketones 80 mg/dL (Negative); Urine Protein Negative (Neg-Trace)
--- NOTE | 2021-12-30 14:47 | PC.NURSE ---
Pt seen for straight cath at this time. 200 cc of yellow clear urine drained from bladder. Upon examination pt had red bttom but blanchable at this time. Pt then observed of having open wound on buttox, open. ANIMAL REHABILITATOR Malcom notified, picture taken by Win CHOI and sent to Malcom ANIMAL REHABILITATOR via tiger text. Wound and buttox cleansed then patted dry, foam applicant applied to bottom and barrier cream applied to surrounding bottom. Pt chucks changed and gown changed. Pt repositioned off of buttox to prevent further breakdown. Pt purewick reapplied per patient request, care passed on to Primary Nurse Win CHOI
[2021-12-30 14:53] LABS: Bacteria Urine 4+ (None Seen); Squamous Epithelial Cell Urine 0-2 /HPF (0-2); UACC Culture Trigger YES; WBC Urine >50 /HPF (0-5)
--- NOTE | 2021-12-30 15:25 | PM.IMHP ---
History of Present Illness Date of Service: 12/30/21 Chief Complaint: Nausea and vomiting 71-year-old woman presented to the ER with complaints of nausea, vomiting and poor appetite over the last 2 weeks. She lives with her son who helps take care of her although she is mostly independent. She reports not being able to eat anything having nausea and vomiting episodes. She denies fever, chills, diarrhea, recent illness, recent travel, sick contacts, abdominal pain. She reports a history of diverticulitis diagnosed in a [facility], recent abdominal CT scan on 12/22/2021 did not show this. She also denies any abdominal pain. all of her labs are within acceptable limits. She is noted to have tachycardia and tachypnea but no fever leukocytosis. Urinalysis is overtly positive, she was given a dose of Rocephin in the ER and antiemetics. She will be admitted for further management and treatment of sepsis secondary to urinary tract infection and failure to thrive. Review of Systems Review of Systems: Denies any recent fever chills or decrease in appetite respiratory denies any shortness of breath coverage production cardiovascular is adjustment of any PND or edema gastrointestinal denies any dysphagia abdominal pain nausea vomiting or diarrhea genitourinary denies any dysuria frequency or hematuria musculoskeletal denies any joint pain or swelling neuropsych denies any weakness or seizures all other systems reviewed are negative PMFSH Social History Advance Directives: No Advance Directives Information Provided: Yes Meds Allergies Allergy/AdvReac Type Severity Reaction Status Date / Time Clinoril Allergy Unknown Rash Verified 11/28/21 15:40 doxycycline AdvReac Unknown VOMITING Verified 11/28/21 15:40 Active Medications: Current Medications Acetaminophen (Acetaminophen 325 Mg Tablet) 650 mg PO Q6H PRN PRN Reason: Pain, Mild (Pain Scale 1-3) Enoxaparin Sodium (Enoxaparin Sodium 40 Mg/0.4 Ml Syringe) 40 mg SUBCUT Q24H NANDINI Ceftriaxone Sodium 1 gm/ (Sodium Chloride) 50 mls @ 100 mls/hr IV ONCE ONE Stop: 12/30/21 15:32 Dextrose/Sodium Chloride (D5ns) 1,000 mls @ 100 mls/hr IVCONT .Q10H NANDINI Ceftriaxone Sodium 1 gm/ (Sodium Chloride) 50 mls @ 100 mls/hr IV Q24H NANDINI Ondansetron HCl (Ondansetron Hcl 4 Mg/2 Ml Vial) 4 mg IVPUSH Q8H PRN PRN Reason: Nausea and Vomiting Pharmacy Consult (Consult Rx Perform Med Rec) 1 each MISCELLANE ONCE PRN PRN Reason: Consult order Sodium Chloride (0.9 % Sodium Chloride Flush 3 Ml Syringe) 3 ml IVFLUSH QSHIFT NANDINI Physical Exam Vital Signs and Narrative: Vital Signs: Last Vital Signs Temp 97.3 F 12/30/21 09:34 Pulse 93 12/30/21 12:05 Resp 24 H 12/30/21 12:05 BP 130/84 12/30/21 12:05 Pulse Ox 99 12/30/21 12:05 O2 Del Method 12/30/21 12:05 BMI result Body Mass Index 18.1 Appearing in no acute distress head is normocephalic atraumatic eyes pupils are PERRLA sclera is anicteric mouth throat mucous membranes are intact and moist neck is supple no lymphadenopathy, no JVD noted lung sounds are clear to auscultation heart regular rate rhythm, clear S1, S2 positive bowel sounds, abdomen is soft, nontender neuro patient is alert x3, no focal deficits Results Labs CBC and Chem 7: 12/30/21 10:24 12/30/21 11:09 Labs: Laboratory Results - last 24 hr 12/30/21 12/30/21 12/30/21 09:37 10:24 10:24 MCV 89.3 MCH 30.6 MCHC 34.2 RDW 14.2 Plt Count 218 MPV 11.4 Immature Gran % (Auto) 0.5 H Neut % (Auto) 77.7 H Lymph % (Auto) 11.1 L [place] % (Auto) 9.6 Eos % (Auto) 0.3 Baso % (Auto) 0.8 Lymph # (Auto) 0.7 L [place] # (Auto) 0.6 Eos # (Auto) 0.0 Baso # (Auto) 0.1 Abs Immat Gran (auto) 0.03 Absolute Neuts (auto) 5.0 Absolute Nucleated RBC 0.020 H Nucleated RBC % (auto) 0.3 H Anion Gap Estim Creat Clear Calc Estimated GFR POC Glucose 55 L* Random Glucose Calcium Magnesium Total Bilirubin AST ALT Alkaline Phosphatase Troponin I High Sens Total Protein Albumin Lipase Urine Color Urine Appearance Urine pH Ur Specific [place] Urine Protein Urine Glucose (UA) Urine Ketones Urine Blood Urine Nitrite Ur Leukocyte Esterase Urine RBC Urine WBC Ur Squamous Epith Cells Urine Bacteria Hyaline Casts COVID-19 (CHARISSA) Negative COVID-19 Clin Com See Note Influenza Type A (PRACHI) Influenza Type B (PRACHI) Influenza A & B Note 12/30/21 12/30/21 12/30/21 10:24 10:24 11:09 MCV MCH MCHC RDW Plt Count MPV Immature Gran % (Auto) Neut % (Auto) Lymph % (Auto) [place] % (Auto) Eos % (Auto) Baso % (Auto) Lymph # (Auto) [place] # (Auto) Eos # (Auto) Baso # (Auto) Abs Immat Gran (auto) Absolute Neuts (auto) Absolute Nucleated RBC Nucleated RBC % (auto) Anion Gap 33 H Estim Creat Clear Calc 42.8 Estimated GFR > 60 POC Glucose Random Glucose 49 L* Calcium 9.1 D Magnesium 2.1 Total Bilirubin 0.9 AST 36 H ALT 35 H Alkaline Phosphatase 52 Troponin I High Sens 40.2 H Total Protein 6.0 L Albumin 3.7 Lipase 20 Urine Color Urine Appearance Urine pH Ur Specific [place] Urine Protein Urine Glucose (UA) Urine Ketones Urine Blood Urine Nitrite Ur Leukocyte Esterase Urine RBC Urine WBC Ur Squamous Epith Cells Urine Bacteria Hyaline Casts COVID-19 (CHARISSA) COVID-19 Clin Com Influenza Type A (PRACHI) Negative Influenza Type B (PRACHI) Negative Influenza A & B Note See Note 12/30/21 12/30/21 12:54 14:35 MCV MCH MCHC RDW Plt Count MPV Immature Gran % (Auto) Neut % (Auto) Lymph % (Auto) [place] % (Auto) Eos % (Auto) Baso % (Auto) Lymph # (Auto) [place] # (Auto) Eos # (Auto) Baso # (Auto) Abs Immat Gran (auto) Absolute Neuts (auto) Absolute Nucleated RBC Nucleated RBC % (auto) Anion Gap Estim Creat Clear Calc Estimated GFR 72 yea rold POC Glucose 161 H Random Glucose Calcium Magnesium Total Bilirubin AST ALT Alkaline Phosphatase Troponin I High Sens Total Protein Albumin Lipase Urine Color Yellow Urine Appearance Cloudy Urine pH 7.0 Ur Specific [place] <= 1.005 Urine Protein Negative Urine Glucose (UA) 100 H Urine Ketones 80 Urine Blood Small (1+) H Urine Nitrite Positive H Ur Leukocyte Esterase Large (3+) H Urine RBC 11-20 H Urine WBC >50 H Ur Squamous Epith Cells 0-2 Urine Bacteria 4+ Hyaline Casts 6-10 COVID-19 (CHARISSA) COVID-19 Clin Com Influenza Type A (PRACHI) Influenza Type B (PRACHI) Influenza A & B Note Assessment and Plan (1) Urinary tract infection: Status: Acute Plan 71 year old women admitted with sepsis secondary to urinary tract infection and failure to thrive Sepsis secondary to UTI Tachycardia, tachypnea Continue Rocephin Follow urine culture , lactic acid pending Nausea and vomiting Likely secondary to urinary tract infection PPI, antiemetics, IV fluids Failure to thrive Poor appetite Nausea and vomiting D5 normal saline at 100, encourage oral intake Physical therapy consultation Mental health Continue home medications DVT prophylaxis Lovenox Attending Dr. Moss Full code Anticipate 2 inpatient midnights for treatment of sepsis secondary to UTI and failure to thrive likely requiring short-term rehab Quality Stroke Does the patient have a stroke diagnosis?: No VTE Prior VTE?: No VTE Risk Level:: Medical - moderate - high VTE Device Contraindication: Treatment Not Indicated VTE Drug Contraindication: N/A - Med Ordered
[2021-12-30 15:52] LABS: Lactic Acid 1.3 mmol/L (0.5-2.0)
[2021-12-30] MEDS: cefTRIAXone sodium 1 GM in 0.9 % Sodium Chloride 50 ML IV (16:09)
[2021-12-30] MEDS: Metoclopramide HCl 10 MG/2 ML VIAL IVPUSH (16:09)
[2021-12-30 16:40] VITALS: BP 112/56; PULSE 86; RESP 17; TEMP 36.6; O2SAT 98
[2021-12-30] MEDS: Dextrose 5 % and 0.9 % NaCl 1,000 ML 100 ML IVCONT (16:43)
[2021-12-30] MEDS: Enoxaparin Sodium 40 MG/0.4 ML SYRINGE SUBCUT (16:43)
[2021-12-30 16:53] VITALS: BMI 18.1
--- NOTE | 2021-12-30 18:39 | PC.NURSE ---
No previous documentation of Stage III pressure ulcer to coccyx. Aprox 2cm by 1cm. Two staff nurses were unable to get the camera to work. Asked permission to take w phone to [employer] text to Kristen Carmona. Sent photo to MD to add to PTs report.
[2021-12-30 19:03] VITALS: BP 101/57; PULSE 88; RESP 17; TEMP 36.6; O2SAT 97
[2021-12-31] VITALS (8 sets, daily range): BP systolic 107–128; BP diastolic 55–77; PULSE 68–97; RESP 16–18; TEMP 36.1–36.8; O2SAT 96–99; BMI 18.1
[2021-12-31] MEDS: Dextrose 5 % and 0.9 % NaCl 1,000 ML 100 ML IVCONT ×3 (03:03→19:57)
[2021-12-31 08:05] LABS: MANUAL DIFF FLAG NO
[2021-12-31 08:10] LABS: Basophils Percent Auto 0.7 % (0-2); Eosinophils Absolute Auto 0.1 X10*3/uL (0.0-0.4); Eosinophils Percent Auto 1.7 % (0-4); Hemoglobin 14.2 g/dl (12.0-16.0); Imm Gran Abs Auto 0.02 X10*3/uL (0.00-0.03); Imm Gran Pct Auto 0.5 % (0.0-0.4); Lymphocytes Absolute Auto 0.9 X10*3/uL (1.2-4.9); Lymphocytes Percent Auto 21.2 % (20-40); Mean Corpuscular HGB Conc 33.8 g/dl (31.0-35.0); Mean Corpuscular Hemoglobin 30.7 pg (27.0-33.0); Mean Corpuscular Volume 90.7 fL (80.0-98.0); Mean Platelet Volume 10.6 fL (9.4-12.3); Monocytes Absolute Auto 0.6 X10*3/uL (0.1-1.2); Monocytes Percent Auto 13.9 % (2-11); Neutrophils Absolute Auto 2.6 x10*3/uL (2.0-8.3); Platelet Count 209 X10*3/uL (160-400); Red Blood Count 4.63 X10*6/uL (4.20-5.50); White Blood Count 4.2 X10*3/uL (4.8-10.8)
--- NOTE | 2021-12-31 08:24 | MHC.CM.PN ---
PATIENT IS INDEPENDENT WITH HER ADLS. SHE LIVES WITH HER SON AND IS WILLING TO COMPLETE A HCP SHE DOES NOT WANT TO HAVE ANY SNF REFERRALS AND PREFERS TO DC HOME WITH [facility]. REFERRAL TO BE PLACED. JUANCARLOS ZULETAX X 2. SHE HAS A CANE, 2 WALKERS, AND A WHEELCHAIR IN THE HOME IMM 12/31 IN CHART.
[2021-12-31 08:30] LABS: Anion Gap 17 (12-20); Blood Urea Nitrogen 3 mg/dL (9-16); Calcium 8.5 mg/dL (8.4-10.2); Carbon Dioxide 34 mmol/L (22-29); Chloride 97 mmol/L (96-108); Creatinine Clr Calc Pharmacy 52.8; Estimated Glomerular Filt Rate > 60; Glucose Random 133 mg/dL (60-115); Potassium 2.8 mmol/L (3.3-5.1); Sodium 145 mmol/L (135-145)
[2021-12-31 08:31] LABS: Magnesium 1.7 mg/dL (1.6-2.6)
[2021-12-31] MEDS: Famotidine/PF 20 MG/2 ML VIAL IVPUSH ×2 (09:53→19:56)
--- NOTE | 2021-12-31 10:42 | MHC.CLN ---
NUTRITION CONSULT FOR POOR PO AND STAGE III WOUND TO COCCYX. DIET=REGULAR. PATIENT WILLING TO TRY ENSURE TID. PROVIDES ADDITIONAL 1050 KCALS, 60 G PROTEIN. HAS DX ADULT FAILURE TO THRIVE. PER NUTRITION ASSESSMENT, QUALIFIES MODERATELY MALNOURISHED. SEE CLINICAL NUTRITION ASSESSMENT 12/31/21.
--- NOTE | 2021-12-31 11:51 | PC.NURSE ---
patient has a pressure sore on coccyx, see nurses note from 12/30. This RN did not find any pictures in MD progress notes. Picture taken again and sent to Dr Pelaez via [facility] with recommendation for wound care consult. Foam dsg applied, patient repositioned, air pump applied to mattress for pressure relief.
--- NOTE | 2021-12-31 12:39 | P.PNIM_ITS ---
Subjective Subjective Date of Service: 12/31/21 Interval History: Still very anxious about eating secondary to vomiting. Review of Systems Denies chest pain Denies shortness of breath Denies nausea vomiting diarrhea Denies fever chills Physical Exam Vital Signs: Vital Signs: Last Vital Signs Temp 96.9 F 12/31/21 11:53 Pulse 76 12/31/21 11:53 Resp 18 12/31/21 11:53 BP 107/67 12/31/21 11:53 Pulse Ox 99 12/31/21 11:53 O2 Del Method 12/31/21 11:53 BMI result Body Mass Index 18.1 Const: Other: Anxious but no acute distress Resp: Other: Clear to auscultation bilaterally no rales rhonchi or wheezes Cardio: Other: No S4; positive S1-S2; no S3 murmurs rubs or gallops GI: Other: Soft nontender non distended positive bowel sounds Extrem: Other: No edema bilaterally Objective Data Active Medications Acetaminophen (Acetaminophen 325 Mg Tablet) 650 mg PO Q6H PRN PRN Reason: Pain, Mild (Pain Scale 1-3) Enoxaparin Sodium (Enoxaparin Sodium 40 Mg/0.4 Ml Syringe) 40 mg SUBCUT Q24H [facility] Last Admin: 12/30/21 16:43 Dose: 40 mg Documented By: LASHAWN Famotidine (Famotidine/Pf 20 Mg/2 Ml Vial) 20 mg IVPUSH BID [facility] Last Admin: 12/31/21 09:53 Dose: 20 mg Documented By: SCOUT Dextrose/Sodium Chloride (D5ns) 1,000 mls @ 100 mls/hr IVCONT .Q10H [facility] Last Admin: 12/31/21 11:33 Dose: Not Given Documented By: SCOUT Non-Admin Reason: IV Running Ceftriaxone Sodium 1 gm/ (Sodium Chloride) 50 mls @ 100 mls/hr IV Q24H [facility] Last Infusion: 12/30/21 16:42 Dose: 0 mls/hr Documented By: LASHAWN Ondansetron HCl (Ondansetron Hcl 4 Mg/2 Ml Vial) 4 mg IVPUSH Q6H PRN PRN Reason: Nausea and Vomiting Pharmacy Consult (Consult Rx Perform Med Rec) 1 each MISCELLANE ONCE PRN PRN Reason: Consult order Sodium Chloride (0.9 % Sodium Chloride Flush 3 Ml Syringe) 3 ml IVFLUSH QSHIFT [facility] Last Admin: 12/31/21 09:53 Dose: Not Given Documented By: SCOUT Non-Admin Reason: IV Running Labs CBC & Chem 7: 12/31/21 07:32 12/31/21 07:32 Labs: Laboratory Results - last 24 hr 12/30/21 12/30/21 12/30/21 12:54 14:35 15:35 MCV MCH MCHC RDW Plt Count MPV Immature Gran % (Auto) Neut % (Auto) Lymph % (Auto) [place] % (Auto) Eos % (Auto) Baso % (Auto) Lymph # (Auto) [place] # (Auto) Eos # (Auto) Baso # (Auto) Abs Immat Gran (auto) Absolute Neuts (auto) Absolute Nucleated RBC Nucleated RBC % (auto) Anion Gap Estim Creat Clear Calc Estimated GFR POC Glucose 161 H Random Glucose Lactic Acid 1.3 Calcium Magnesium Urine Color Yellow Urine Appearance Cloudy Urine pH 7.0 Ur Specific [place] <= 1.005 Urine Protein Negative Urine Glucose (UA) 100 H Urine Ketones 80 Urine Blood Small (1+) H Urine Nitrite Positive H Ur Leukocyte Esterase Large (3+) H Urine RBC 11-20 H Urine WBC >50 H Ur Squamous Epith Cells 0-2 Urine Bacteria 4+ Hyaline Casts 6-10 12/31/21 12/31/21 12/31/21 07:32 07:32 07:32 MCV 90.7 MCH 30.7 MCHC 33.8 RDW 14.0 Plt Count 209 MPV 10.6 Immature Gran % (Auto) 0.5 H Neut % (Auto) 62.0 Lymph % (Auto) 21.2 [place] % (Auto) 13.9 H Eos % (Auto) 1.7 Baso % (Auto) 0.7 Lymph # (Auto) 0.9 L [place] # (Auto) 0.6 Eos # (Auto) 0.1 Baso # (Auto) 0.0 Abs Immat Gran (auto) 0.02 Absolute Neuts (auto) 2.6 Absolute Nucleated RBC 0.000 Nucleated RBC % (auto) 0.0 Anion Gap 17 Estim Creat Clear Calc 52.8 Estimated GFR > 60 POC Glucose Random Glucose 133 H Lactic Acid Calcium 8.5 D Magnesium 1.7 Urine Color Urine Appearance Urine pH Ur Specific [place] Urine Protein Urine Glucose (UA) Urine Ketones Urine Blood Urine Nitrite Ur Leukocyte Esterase Urine RBC Urine WBC Ur Squamous Epith Cells Urine Bacteria Hyaline Casts Microbiology Microbiology Results: Microbiology 12/30/21 14:56 Urine Culture - Preliminary Urine clean catch - Urine fletcher top Gram negative stefani Assessment and Plan (1) Urinary tract infection: Status: Acute (2) Adult failure to thrive: Status: Acute (3) Nausea & vomiting: Status: Acute Plan 71 year old women admitted with urinary tract infection and failure to thrive; very limited intake secondary to the feeling of nausea and dry heaving after any food 1.UTI (sepsis not present on admission) -continue ceftriaxone pending culture 2.Nausea and vomiting -aggressive treatment of 1. -IV fluids/proton pump inhibitor -follow response to therapy 3.FTT.. Moderately malnourished -as per dietary ensure t.i.d. DVT prophylaxis Lovenox Attending Dr. Moss Full code Will require ongoing hospitalization for IV antibiotics for presumed UTI pending cultures Quality Stroke Does the patient have a stroke diagnosis?: No VTE Prior VTE?: No VTE Risk Level:: Medical - moderate - high VTE Device Contraindication: Treatment Not Indicated VTE Drug Contraindication: N/A - Med Ordered
[2021-12-31] MEDS: cefTRIAXone sodium 1 GM in 0.9 % Sodium Chloride 50 ML IV (16:39)
[2021-12-31] MEDS: Enoxaparin Sodium 40 MG/0.4 ML SYRINGE SUBCUT (16:41)
[2022-01-01 02:55] VITALS: BP 112/64; PULSE 78; RESP 16; TEMP 36.5; O2SAT 100
[2022-01-01 05:50] LABS: MANUAL DIFF FLAG NO
[2022-01-01 05:58] LABS: Basophils Percent Auto 0.6 % (0-2); Eosinophils Absolute Auto 0.1 X10*3/uL (0.0-0.4); Eosinophils Percent Auto 1.4 % (0-4); Hematocrit 44.3 % (37.0-47.0); Imm Gran Abs Auto 0.03 X10*3/uL (0.00-0.03); Imm Gran Pct Auto 0.8 % (0.0-0.4); Lymphocytes Absolute Auto 0.8 X10*3/uL (1.2-4.9); Lymphocytes Percent Auto 22.1 % (20-40); Mean Corpuscular HGB Conc 33.9 g/dl (31.0-35.0); Mean Corpuscular Hemoglobin 30.5 pg (27.0-33.0); Mean Corpuscular Volume 90.2 fL (80.0-98.0); Mean Platelet Volume 10.5 fL (9.4-12.3); Monocytes Absolute Auto 0.4 X10*3/uL (0.1-1.2); Monocytes Percent Auto 12.5 % (2-11); Neutrophils Absolute Auto 2.2 x10*3/uL (2.0-8.3); Neutrophils Percent Auto 62.6 % (45-73); Platelet Count 200 X10*3/uL (160-400); Red Blood Count 4.91 X10*6/uL (4.20-5.50); Red Cell Distribution Width 13.7 % (11.0-16.0); White Blood Count 3.5 X10*3/uL (4.8-10.8)
[2022-01-01 06:16] LABS: Alanine Aminotransferase 21 U/L (0-31); Alkaline Phosphatase 43 U/L (39-117); Anion Gap 14 (12-20); Aspartate Amino Transferase 19 U/L (5-31); Bilirubin Total 0.7 mg/dL (0.0-1.0); Blood Urea Nitrogen < 3 mg/dL (9-16); Calcium 8.5 mg/dL (8.4-10.2); Carbon Dioxide 35 mmol/L (22-29); Chloride 100 mmol/L (96-108); Creatinine Clr Calc Pharmacy 66.4; Estimated Glomerular Filt Rate > 60; Glucose Fasting 121 mg/dL (60-99); Sodium 147 mmol/L (135-145)
[2022-01-01 06:22] LABS: Potassium 2.4 mmol/L (3.3-5.1)
[2022-01-01 06:53] VITALS: BP 137/74; PULSE 75; RESP 18; TEMP 35.5; O2SAT 99
[2022-01-01 07:29] LABS: Magnesium 1.5 mg/dL (1.6-2.6)
[2022-01-01] MEDS: Potassium Chloride/H20 10 MEQ/100 ML PIGGYBACK 100 MEQ IV ×4 (07:46→10:49)
[2022-01-01] MEDS: Potassium Chloride Packet 20 MEQ PACKET 40 MEQ PO (07:46)
[2022-01-01] MEDS: Famotidine/PF 20 MG/2 ML VIAL IVPUSH ×2 (07:47→20:36)
[2022-01-01] MEDS: ondansetron HCL 4 MG/2 ML VIAL IVPUSH (08:51)
--- NOTE | 2022-01-01 10:34 | P.PNIM_ITS ---
Subjective Subjective Date of Service: 01/01/22 Interval History: Still very anxious about eating secondary to vomiting. Review of Systems Denies chest pain Denies shortness of breath Admits nausea vomiting Denies fever chills Physical Exam Vital Signs: Vital Signs: Last Vital Signs Temp 96 F L 01/01/22 06:53 Pulse 75 01/01/22 06:53 Resp 18 01/01/22 06:53 BP 137/74 01/01/22 06:53 Pulse Ox 99 01/01/22 06:53 O2 Del Method 01/01/22 06:53 BMI result Body Mass Index 18.1 Const: Other: Anxious but no acute distress Resp: Other: Clear to auscultation bilaterally no rales rhonchi or wheezes Cardio: Other: No S4; positive S1-S2; no S3 murmurs rubs or gallops GI: Other: Soft nontender non distended positive bowel sounds Skin: Other: Stage I buttocks ulcer Extrem: Other: No edema bilaterally Objective Data Active Medications Acetaminophen (Acetaminophen 325 Mg Tablet) 650 mg PO Q6H PRN PRN Reason: Pain, Mild (Pain Scale 1-3) Enoxaparin Sodium (Enoxaparin Sodium 40 Mg/0.4 Ml Syringe) 40 mg SUBCUT Q24H [facility] Last Admin: 12/31/21 16:41 Dose: 40 mg Documented By: SCOUT Famotidine (Famotidine/Pf 20 Mg/2 Ml Vial) 20 mg IVPUSH BID [facility] Last Admin: 01/01/22 07:47 Dose: 20 mg Documented By: SCOUT Dextrose/Sodium Chloride (D5ns) 1,000 mls @ 100 mls/hr IVCONT .Q10H [facility] Last Admin: 01/01/22 07:47 Dose: Not Given Documented By: SCOUT Non-Admin Reason: IV Running Ceftriaxone Sodium 1 gm/ (Sodium Chloride) 50 mls @ 100 mls/hr IV Q24H [facility] Last Infusion: 12/31/21 17:11 Dose: 0 mls/hr Documented By: SCOUT Potassium Chloride (Potassium Chloride/H20) 10 meq in 100 mls @ 100 mls/hr IV Q1H [facility] Stop: 01/01/22 11:14 Last Admin: 01/01/22 09:49 Dose: 100 mls/hr Documented By: SCOUT Ondansetron HCl (Ondansetron Hcl 4 Mg/2 Ml Vial) 4 mg IVPUSH Q6H PRN PRN Reason: Nausea and Vomiting Last Admin: 01/01/22 08:51 Dose: 4 mg Documented By: SCOUT Pharmacy Consult (Consult Rx Perform Med Rec) 1 each MISCELLANE ONCE PRN PRN Reason: Consult order Sodium Chloride (0.9 % Sodium Chloride Flush 3 Ml Syringe) 3 ml IVFLUSH QSHIFT [facility] Last Admin: 01/01/22 08:03 Dose: Not Given Documented By: SCOUT Non-Admin Reason: IV Running Labs CBC & Chem 7: 01/01/22 05:38 01/01/22 05:38 Labs: Laboratory Results - last 24 hr 01/01/22 01/01/22 05:38 05:38 MCV 90.2 MCH 30.5 MCHC 33.9 RDW 13.7 Plt Count 200 MPV 10.5 Immature Gran % (Auto) 0.8 H Neut % (Auto) 62.6 Lymph % (Auto) 22.1 [place] % (Auto) 12.5 H Eos % (Auto) 1.4 Baso % (Auto) 0.6 Lymph # (Auto) 0.8 L [place] # (Auto) 0.4 Eos # (Auto) 0.1 Baso # (Auto) 0.0 Abs Immat Gran (auto) 0.03 Absolute Neuts (auto) 2.2 Absolute Nucleated RBC 0.000 Nucleated RBC % (auto) 0.0 Anion Gap 14 Estim Creat Clear Calc 66.4 Estimated GFR > 60 Fasting Glucose 121 H Calcium 8.5 Phosphorus 2.0 L Magnesium 1.5 L Total Bilirubin 0.7 AST 19 ALT 21 Alkaline Phosphatase 43 Total Protein 5.0 L Albumin 3.0 L Microbiology Microbiology Results: Microbiology 12/30/21 14:56 Urine Culture - Final Urine clean catch - Urine fletcher top Escherichia coli 12/30/21 15:52 Blood Culture - Preliminary Blood - Venous No growth after 24 hours. 12/30/21 15:35 Blood Culture - Preliminary Blood - Venous No growth after 24 hours. Assessment and Plan (1) Urinary tract infection: Status: Acute (2) Nausea & vomiting: Status: Acute (3) Adult failure to thrive: Status: Acute Plan 71 year old women admitted with urinary tract infection and failure to thrive; very limited intake secondary to the feeling of nausea and dry heaving after any food 1.UTI (sepsis not present on admission) -continue ceftriaxone pending culture 2.Nausea and vomiting -aggressive treatment of 1. -IV fluids/proton pump inhibitor -follow response to therapy 3.FTT.. Moderately malnourished -as per dietary ensure t.i.d. DVT prophylaxis Lovenox Attending Dr. Moss Full code Will require ongoing hospitalization for IV antibiotics for presumed UTI pending cultures Quality Stroke Does the patient have a stroke diagnosis?: No VTE Prior VTE?: No VTE Risk Level:: Medical - moderate - high VTE Device Contraindication: Treatment Not Indicated VTE Drug Contraindication: N/A - Med Ordered
[2022-01-01] MEDS: Dextrose 5 % and 0.9 % NaCl 1,000 ML 100 ML IVCONT ×2 (10:49→22:11)
[2022-01-01 11:38] VITALS: BP 118/61; PULSE 93; RESP 17; TEMP 36.6; O2SAT 100
[2022-01-01] MEDS: Magnesium Sulfate/H2O 2 GM/50 ML PIGGYBACK IV (11:53)
[2022-01-01] MEDS: Potassium Phosphate/NS 15 MMOL/250 ML PLAST..BAG 62.5 MMOL IV ×2 (13:35→18:01)
[2022-01-01 15:31] VITALS: BP 111/53; PULSE 89; RESP 17; TEMP 36.5; O2SAT 100
[2022-01-01] MEDS: Enoxaparin Sodium 40 MG/0.4 ML SYRINGE SUBCUT (17:00)
[2022-01-01] MEDS: cefTRIAXone sodium 1 GM in 0.9 % Sodium Chloride 50 ML IV (17:00)
[2022-01-01 20:00] VITALS: BP 99/56; PULSE 84; RESP 17; TEMP 36.3; O2SAT 100
[2022-01-01] MEDS: 0.9 % Sodium Chloride Flush 3 ML SYRINGE IVFLUSH (20:36)
[2022-01-02] VITALS: BP 114/60; PULSE 86; RESP 18; TEMP 36.8; O2SAT 98
[2022-01-02 03:41] VITALS: BP 114/64; PULSE 88; RESP 17; TEMP 36.3; O2SAT 98
[2022-01-02] MEDS: Dextrose 5 % and 0.9 % NaCl 1,000 ML 100 ML IVCONT ×2 (05:49→17:25)
[2022-01-02 06:23] LABS: MANUAL DIFF FLAG NO
[2022-01-02 06:40] LABS: Basophils Percent Auto 1.2 % (0-2); Eosinophils Absolute Auto 0.1 X10*3/uL (0.0-0.4); Eosinophils Percent Auto 3.4 % (0-4); Hematocrit 45.9 % (37.0-47.0); Hemoglobin 15.3 g/dl (12.0-16.0); Imm Gran Abs Auto 0.02 X10*3/uL (0.00-0.03); Imm Gran Pct Auto 0.6 % (0.0-0.4); Lymphocytes Absolute Auto 0.8 X10*3/uL (1.2-4.9); Lymphocytes Percent Auto 26.2 % (20-40); Mean Corpuscular HGB Conc 33.3 g/dl (31.0-35.0); Mean Corpuscular Hemoglobin 30.2 pg (27.0-33.0); Mean Corpuscular Volume 90.5 fL (80.0-98.0); Mean Platelet Volume 10.9 fL (9.4-12.3); Monocytes Absolute Auto 0.4 X10*3/uL (0.1-1.2); Monocytes Percent Auto 12.8 % (2-11); Neutrophils Absolute Auto 1.8 x10*3/uL (2.0-8.3); Neutrophils Percent Auto 55.8 % (45-73); Platelet Count 191 X10*3/uL (160-400); Red Blood Count 5.07 X10*6/uL (4.20-5.50); Red Cell Distribution Width 14.3 % (11.0-16.0); White Blood Count 3.2 X10*3/uL (4.8-10.8)
[2022-01-02 07:06] VITALS: BP 140/97; PULSE 83; RESP 18; TEMP 36.1; O2SAT 98
--- NOTE | 2022-01-02 08:17 | P.CONWO_ITS ---
History of Present Illness Data of Consult Service Date: 01/02/22 Requesting physician: Yonathan Pelaez Primary Care Provider: Araseli Arora MD [facility] Reason for consult: coccygeal slit [id number]: 71-year-old female who lives in a mobile home with her life partner since April, also cared for by her son brought in to [facility] for UTI, dehydration and failure to thrive. Feeling better today with IV fluids and antibiotics. Continues to complain of poor appetite. No fever. She has various adaptive equipment at home and is largely ambulatory. A few steps required to gain access to her home. She is largely independent. She states that she is food secure from a financial perspective, the issue she does not feel like eating. She denies pain on her buttocks. She states that she is mostly continent of urine at home. Review of Systems Review of Systems: No shortness of breath or chest pain today. Yes all other systems are reviewed and are negative PMFSH Social History Household Members: Children Housing: House Do you presently have visiting nurse or other home services: No Patient Tobacco Use Status: Never used Tobacco Substance Use Type: Marijuana service: No Current occupational status: retired and disabled Meds Allergies Allergy/AdvReac Type Severity Reaction Status Date / Time [place] Allergy Unknown Rash Verified 11/28/21 15:40 doxycycline AdvReac Unknown VOMITING Verified 11/28/21 15:40 Active Medications: Current Medications Acetaminophen (Acetaminophen 325 Mg Tablet) 650 mg PO Q6H PRN PRN Reason: Pain, Mild (Pain Scale 1-3) Enoxaparin Sodium (Enoxaparin Sodium 40 Mg/0.4 Ml Syringe) 40 mg SUBCUT Q24H [facility] Last Admin: 01/01/22 17:00 Dose: 40 mg Famotidine (Famotidine/Pf 20 Mg/2 Ml Vial) 20 mg IVPUSH BID [facility] Last Admin: 01/01/22 20:36 Dose: 20 mg Ceftriaxone Sodium 1 gm/ (Sodium Chloride) 50 mls @ 100 mls/hr IV Q24H [facility] Last Infusion: 01/01/22 17:30 Dose: Infused Dextrose/Sodium Chloride (D5ns) 1,000 mls @ 100 mls/hr IVCONT .Q10H [facility] Last Admin: 01/02/22 05:49 Dose: 100 mls/hr Ondansetron HCl (Ondansetron Hcl 4 Mg/2 Ml Vial) 4 mg IVPUSH Q6H PRN PRN Reason: Nausea and Vomiting Last Admin: 01/01/22 08:51 Dose: 4 mg Pharmacy Consult (Consult Rx Perform Med Rec) 1 each MISCELLANE ONCE PRN PRN Reason: Consult order Sodium Chloride (0.9 % Sodium Chloride Flush 3 Ml Syringe) 3 ml IVFLUSH QSHIFT [facility] Last Admin: 01/01/22 20:36 Dose: 3 ml Physical Exam Vital Signs and Narrative: Vital Signs: Last Vital Signs Temp 97 F 01/02/22 07:06 Pulse 83 01/02/22 07:06 Resp 18 01/02/22 07:06 BP 140/97 H 01/02/22 07:06 Pulse Ox 98 01/02/22 07:06 O2 Del Method 01/02/22 07:06 BMI result Body Mass Index 18.1 Bed mobility is excellent. She follows commands briskly and accurately. She is oriented fully. Coccygeal slit is about 1.5 cm in length. Surrounding tissues are fully blanchable suggesting no ischemic or pressure component. Friction, moisture and shear play a role. She has a urinary wick close by. There is scant nonexcoriated rash on the right buttock without associated skin breakdown. No expressible fluid from the wound. No periosteal exposure. Results Labs CBC and Chem 7: 01/02/22 05:14 01/01/22 05:38 Labs: Laboratory Results - last 24 hr 01/02/22 05:14 MCV 90.5 MCH 30.2 MCHC 33.3 RDW 14.3 Plt Count 191 MPV 10.9 Immature Gran % (Auto) 0.6 H Neut % (Auto) 55.8 Lymph % (Auto) 26.2 [place] % (Auto) 12.8 H Eos % (Auto) 3.4 Baso % (Auto) 1.2 Lymph # (Auto) 0.8 L [place] # (Auto) 0.4 Eos # (Auto) 0.1 Baso # (Auto) 0.0 Abs Immat Gran (auto) 0.02 Absolute Neuts (auto) 1.8 L Absolute Nucleated RBC 0.000 Nucleated RBC % (auto) 0.0 Assessment and Plan (1) Dermatitis, unspecified: Status: Acute Plan 71-year-old female with improving failure to thrive after treatment of UTI on IV fluids, seemingly secure at home with independence, nutrition and only minimal impairment in mobility. Suggest a small piece of alginate cut to fit the slit be utilized. This in conjunction with Aleve in foam can be considered. A pr eferable secondary dressing would be periwound zinc with gauze and Medipore tape being cautious to not cause skin breakdown with adhesives. Patient is eager to return to the wound clinic after discharge from the hospital for further recommendations. Thank you for the courtesy of this consultation.
[2022-01-02] MEDS: 0.9 % Sodium Chloride Flush 3 ML SYRINGE IVFLUSH ×3 (08:25→21:15)
[2022-01-02] MEDS: Famotidine/PF 20 MG/2 ML VIAL IVPUSH ×2 (08:25→21:15)
[2022-01-02 09:38] LABS: Alanine Aminotransferase 27 U/L (0-31); Alkaline Phosphatase 48 U/L (39-117); Aspartate Amino Transferase 31 U/L (5-31); Bilirubin Total 0.7 mg/dL (0.0-1.0); Calcium 8.3 mg/dL (8.4-10.2); Estimated Glomerular Filt Rate > 60; Glucose Fasting 101 mg/dL (60-99); Magnesium 1.9 mg/dL (1.6-2.6); Phosphorus 3.7 mg/dL (2.7-4.5); Total Protein 4.9 g/dL (6.5-8.0)
[2022-01-02 09:53] LABS: Anion Gap 18 (12-20); Blood Urea Nitrogen < 3 mg/dL (9-16); Carbon Dioxide 30 mmol/L (22-29); Chloride 102 mmol/L (96-108); Potassium 3.9 mmol/L (3.3-5.1); Sodium 146 mmol/L (135-145)
--- NOTE | 2022-01-02 10:14 | P.CDIC_ITS ---
CDI Concurrent Query Documentation Clarification: PHYSICIAN'S DOCUMENTATION REQUEST Date of Query: 01/02/22 1014 Patient Name: Alycia Kerns Admit Date: 12/30/21 Dear Doctor, A review of the medical record indicates additional documentation may be needed. Please review below and update the documentation accordingly. Clinical Indicators: Is there a diagnosis that correlates with these lab findings below: Risk Factors/Clinical Indicators/Treatments Labs: Potassium on 12/31: 2.8 Potassium on 01/01: 2.4 Administered medications: Potassium phosphate Potassium chloride Based on the above, could you clarify in the Progress Notes the appropriate diagnosis, if significant, that supports the above abnormalities and additional evaluation, monitoring, and/or treatment rendered: * Hypokalemia * Labs indicate a diagnosis of (please specify) * Other (please specify) * Unable to determine Use of terms such as suspected, likely, concern for, or probable (associated with a specific diagnosis that is being evaluated, monitored, or treated as if it exists) are acceptable and can be coded in the inpatient setting, when documented at the time of discharge. Thank you, Gracie Mejia MS, RN, CCRN Extension: [phone] Please use your independent medical judgment in providing your response. THIS QUERY IS PART OF THE PERMANENT MEDICAL RECORD Provider Response: Other Other Diagnosis: Hypokalemia
--- NOTE | 2022-01-02 10:22 | P.CDIC_ITS ---
CDI Concurrent Query Documentation Clarification: PHYSICIAN'S DOCUMENTATION REQUEST Date of Query: 01/02/22 1023 Patient Name: Alycia Kerns Admit Date: 12/30/21 Dear Doctor, A review of the medical record indicates additional documentation may be needed. Please review below and update the documentation accordingly. Clinical Indicators: Provider documentation indicates a diagnosis of a UTI. Additional clinical indicators to provide specificity in the record include: Risk Factors/Clinical Indicators/Treatments Per provider notes: Will require ongoing hospitalization for IV antibiotics for presumed UTI Administered medications: Ceftriaxone Per urine culture on 12/30: (+) for E. Coli Please clarify the relationship between these conditions: * Yes, UTI is related to / associated with / due to E. Coli * No, UTI is not related to / associated with / due to E. Coli * Unable to determine Use of terms such as suspected, likely, concern for, or probable (associated with a specific diagnosis that is being evaluated, monitored, or treated as if it exists) are acceptable and can be coded in the inpatient setting, when documented at the time of discharge. Thank you, Gracie Mejia, MS, RN, CCRN Extension: [phone] Please use your independent medical judgment in providing your response. THIS QUERY IS PART OF THE PERMANENT MEDICAL RECORD Provider Response: Other Other Diagnosis: E coli UTI
[2022-01-02 10:56] VITALS: BP 113/66; PULSE 89; RESP 18; TEMP 36.1; O2SAT 100
[2022-01-02 15:08] VITALS: BP 144/69; PULSE 83; RESP 17; TEMP 36.3; O2SAT 98
--- NOTE | 2022-01-02 15:23 | MHC.CLN ---
F/U DIET=REGULAR. ENSURE TID PROVIDES ADDITIONAL 1050 KCALS, 60 G PROTEIN. SUPPLEMENT TO PROMOTE WOUND HEALING AND IMPROVE NUTRITIONAL STATUS. STAGE III WOUND TO COCCYX. INTAKE POOR TO FAIR, 0-50%. FOLLOW FOR INTAKE AND WOUND.
[2022-01-02] MEDS: cefTRIAXone sodium 1 GM in 0.9 % Sodium Chloride 50 ML IV (16:12)
[2022-01-02] MEDS: Enoxaparin Sodium 40 MG/0.4 ML SYRINGE SUBCUT (16:12)
[2022-01-02] MEDS: ondansetron HCL 4 MG/2 ML VIAL IVPUSH (19:30)
[2022-01-02 20:00] VITALS: BP 139/69; PULSE 80; RESP 18; TEMP 36.2; O2SAT 99
[2022-01-03] VITALS: BP 149/88; PULSE 82; RESP 18; TEMP 36.4; O2SAT 99
[2022-01-03] MEDS: Dextrose 5 % and 0.9 % NaCl 1,000 ML 100 ML IVCONT ×2 (03:16→14:35)
[2022-01-03 04:00] VITALS: BP 138/81; PULSE 93; RESP 18; TEMP 36.6; O2SAT 99
[2022-01-03 06:09] LABS: MANUAL DIFF FLAG NO
[2022-01-03 06:30] LABS: Basophils Percent Auto 1.1 % (0-2); Eosinophils Absolute Auto 0.1 X10*3/uL (0.0-0.4); Eosinophils Percent Auto 3.7 % (0-4); Hematocrit 47.9 % (37.0-47.0); Imm Gran Abs Auto 0.02 X10*3/uL (0.00-0.03); Imm Gran Pct Auto 0.6 % (0.0-0.4); Lymphocytes Absolute Auto 0.8 X10*3/uL (1.2-4.9); Mean Corpuscular HGB Conc 33.4 g/dl (31.0-35.0); Mean Corpuscular Hemoglobin 30.1 pg (27.0-33.0); Mean Corpuscular Volume 90.2 fL (80.0-98.0); Mean Platelet Volume 10.8 fL (9.4-12.3); Monocytes Absolute Auto 0.3 X10*3/uL (0.1-1.2); Monocytes Percent Auto 9.8 % (2-11); Neutrophils Absolute Auto 2.2 x10*3/uL (2.0-8.3); Neutrophils Percent Auto 61.8 % (45-73); Platelet Count 191 X10*3/uL (160-400); Red Blood Count 5.31 X10*6/uL (4.20-5.50); Red Cell Distribution Width 14.3 % (11.0-16.0); White Blood Count 3.5 X10*3/uL (4.8-10.8)
[2022-01-03 06:38] LABS: Alanine Aminotransferase 41 U/L (0-31); Alkaline Phosphatase 49 U/L (39-117); Anion Gap 14 (12-20); Aspartate Amino Transferase 40 U/L (5-31); Bilirubin Total 0.6 mg/dL (0.0-1.0); Blood Urea Nitrogen < 3 mg/dL (9-16); Calcium 8.6 mg/dL (8.4-10.2); Carbon Dioxide 30 mmol/L (22-29); Chloride 105 mmol/L (96-108); Creatinine Clr Calc Pharmacy 83.7; Estimated Glomerular Filt Rate > 60; Glucose Fasting 102 mg/dL (60-99); Magnesium 1.8 mg/dL (1.6-2.6); Potassium 3.6 mmol/L (3.3-5.1); Sodium 145 mmol/L (135-145)
[2022-01-03 07:57] VITALS: BP 110/67; PULSE 88; RESP 18; TEMP 36.5; O2SAT 98
[2022-01-03] MEDS: 0.9 % Sodium Chloride Flush 3 ML SYRINGE IVFLUSH ×2 (08:50→16:01)
[2022-01-03] MEDS: Famotidine/PF 20 MG/2 ML VIAL IVPUSH ×2 (08:50→21:02)
[2022-01-03 12:00] VITALS: BP 99/55; PULSE 81; RESP 18; TEMP 36.5; O2SAT 100
--- NOTE | 2022-01-03 12:01 | HO.PM.IMPN ---
Subjective Subjective Date of Service: 01/03/22 Interval History: Nausea slowly improved Review of Systems Denies chest pain Shortness of breath Denies nausea vomiting diarrhea Physical Exam Vital Signs: Vital Signs: Last Vital Signs Temp 97.7 F 01/03/22 07:57 Pulse 88 01/03/22 07:57 Resp 18 01/03/22 07:57 BP 110/67 01/03/22 07:57 Pulse Ox 98 01/03/22 07:57 O2 Del Method 01/03/22 07:57 BMI result Body Mass Index 18.1 Const: Other: Anxious but no acute distress Resp: Other: Clear to auscultation bilaterally no rales rhonchi or wheezes Cardio: Other: No S4; positive S1-S2; no S3 murmurs rubs or gallops GI: Other: Soft nontender non distended positive bowel sounds Skin: Other: Stage I buttocks ulcer Extrem: Other: No edema bilaterally Objective Data Active Medications Acetaminophen (Acetaminophen 325 Mg Tablet) 650 mg PO Q6H PRN PRN Reason: Pain, Mild (Pain Scale 1-3) Enoxaparin Sodium (Enoxaparin Sodium 40 Mg/0.4 Ml Syringe) 40 mg SUBCUT Q24H [facility] Last Admin: 01/02/22 16:12 Dose: 40 mg Documented By: JAMIL Famotidine (Famotidine/Pf 20 Mg/2 Ml Vial) 20 mg IVPUSH BID [facility] Last Admin: 01/03/22 08:50 Dose: 20 mg Documented By: JAMIL Ceftriaxone Sodium 1 gm/ (Sodium Chloride) 50 mls @ 100 mls/hr IV Q24H [facility] Last Infusion: 01/02/22 16:59 Dose: 0 mls/hr Documented By: JAMIL Dextrose/Sodium Chloride (D5ns) 1,000 mls @ 100 mls/hr IVCONT .Q10H [facility] Last Admin: 01/03/22 03:16 Dose: 100 mls/hr Documented By: ARIAN Ondansetron HCl (Ondansetron Hcl 4 Mg/2 Ml Vial) 4 mg IVPUSH Q6H PRN PRN Reason: Nausea and Vomiting Last Admin: 01/02/22 19:30 Dose: 4 mg Documented By: ARIAN Pharmacy Consult (Consult Rx Perform Med Rec) 1 each MISCELLANE ONCE PRN PRN Reason: Consult order Sodium Chloride (0.9 % Sodium Chloride Flush 3 Ml Syringe) 3 ml IVFLUSH QSHIFT [facility] Last Admin: 01/03/22 08:50 Dose: 3 ml Documented By: JAMIL Labs CBC & Chem 7: 01/03/22 05:33 01/03/22 05:33 Labs: Laboratory Results - last 24 hr 01/03/22 01/03/22 05:33 05:33 MCV 90.2 MCH 30.1 MCHC 33.4 RDW 14.3 Plt Count 191 MPV 10.8 Immature Gran % (Auto) 0.6 H Neut % (Auto) 61.8 Lymph % (Auto) 23.0 [place] % (Auto) 9.8 Eos % (Auto) 3.7 Baso % (Auto) 1.1 Lymph # (Auto) 0.8 L [place] # (Auto) 0.3 Eos # (Auto) 0.1 Baso # (Auto) 0.0 Abs Immat Gran (auto) 0.02 Absolute Neuts (auto) 2.2 Absolute Nucleated RBC 0.000 Nucleated RBC % (auto) 0.0 Anion Gap 14 Estim Creat Clear Calc 83.7 Estimated GFR > 60 Fasting Glucose 102 H Calcium 8.6 Phosphorus 3.0 Magnesium 1.8 Total Bilirubin 0.6 AST 40 H ALT 41 H Alkaline Phosphatase 49 Total Protein 5.0 L Albumin 3.0 L Assessment and Plan (1) Urinary tract infection: Status: Acute (2) Nausea & vomiting: Status: Acute (3) Adult failure to thrive: Status: Acute Plan 71 year old women admitted with urinary tract infection and failure to thrive; very limited intake secondary to the feeling of nausea and dry heaving after any food 1.UTI (sepsis not present on admission) -continue ceftriaxone pending culture 2.Nausea and vomiting -aggressive treatment of 1. -IV fluids/proton pump inhibitor 3.FTT.. Moderately malnourished -as per dietary ensure t.i.d. DVT prophylaxis Lovenox Attending Dr. Moss Full code Will require ongoing hospitalization for IV antibiotics for presumed UTI pending cultures Quality Stroke Does the patient have a stroke diagnosis?: No VTE Prior VTE?: No VTE Risk Level:: Medical - moderate - high VTE Device Contraindication: Treatment Not Indicated VTE Drug Contraindication: N/A - Med Ordered
[2022-01-03 15:13] VITALS: BP 127/69; PULSE 80; RESP 17; TEMP 36.5; O2SAT 100
[2022-01-03] MEDS: cefTRIAXone sodium 1 GM in 0.9 % Sodium Chloride 50 ML IV (16:00)
[2022-01-03] MEDS: Enoxaparin Sodium 40 MG/0.4 ML SYRINGE SUBCUT (16:00)
[2022-01-03 19:08] VITALS: BP 106/70; PULSE 88; RESP 17; TEMP 36.6; O2SAT 99
[2022-01-04] VITALS (8 sets, daily range): BP systolic 106–140; BP diastolic 58–83; PULSE 75–91; RESP 16–18; TEMP 36.3–36.8; O2SAT 90–100
[2022-01-04 06:14] LABS: Magnesium 1.6 mg/dL (1.6-2.6)
[2022-01-04] MEDS: Famotidine/PF 20 MG/2 ML VIAL IVPUSH (08:06)
[2022-01-04] MEDS: 0.9 % Sodium Chloride Flush 3 ML SYRINGE IVFLUSH ×3 (08:07→20:31)
--- NOTE | 2022-01-04 13:28 | P.PNIM_ITS ---
Subjective Subjective Date of Service: 01/04/22 Interval History: Slowly increasing her diet Review of Systems Denies chest pain Shortness of breath Denies nausea vomiting diarrhea Physical Exam Vital Signs: Vital Signs: Last Vital Signs Temp 98.2 F 01/04/22 11:56 Pulse 79 01/04/22 11:56 Resp 18 01/04/22 11:56 BP 106/58 L 01/04/22 11:56 Pulse Ox 100 01/04/22 11:56 O2 Del Method 01/04/22 11:56 BMI result Body Mass Index 18.1 Const: Other: Anxious but no acute distress Resp: Other: Clear to auscultation bilaterally no rales rhonchi or wheezes Cardio: Other: No S4; positive S1-S2; no S3 murmurs rubs or gallops GI: Other: Soft nontender non distended positive bowel sounds Skin: Other: Stage I buttocks ulcer Extrem: Other: No edema bilaterally Objective Data Active Medications Acetaminophen (Acetaminophen 325 Mg Tablet) 650 mg PO Q6H PRN PRN Reason: Pain, Mild (Pain Scale 1-3) Enoxaparin Sodium (Enoxaparin Sodium 40 Mg/0.4 Ml Syringe) 40 mg SUBCUT Q24H [facility] Last Admin: 01/03/22 16:00 Dose: 40 mg Documented By: JAMIL Famotidine (Famotidine/Pf 20 Mg/2 Ml Vial) 20 mg IVPUSH BID [facility] Last Admin: 01/04/22 08:06 Dose: 20 mg Documented By: SONG Ceftriaxone Sodium 1 gm/ (Sodium Chloride) 50 mls @ 100 mls/hr IV Q24H [facility] Last Infusion: 01/03/22 16:36 Dose: 0 mls/hr Documented By: JAMIL Ondansetron HCl (Ondansetron Hcl 4 Mg/2 Ml Vial) 4 mg IVPUSH Q6H PRN PRN Reason: Nausea and Vomiting Last Admin: 01/02/22 19:30 Dose: 4 mg Documented By: ARIAN Pharmacy Consult (Consult Rx Perform Med Rec) 1 each MISCELLANE ONCE PRN PRN Reason: Consult order Sodium Chloride (0.9 % Sodium Chloride Flush 3 Ml Syringe) 3 ml IVFLUSH QSHIFT [facility] Last Admin: 01/04/22 08:07 Dose: 3 ml Documented By: SONG Labs CBC & Chem 7: 01/03/22 05:33 01/03/22 05:33 Labs: Laboratory Results - last 24 hr 01/04/22 05:27 Phosphorus 3.0 Magnesium 1.6 Assessment and Plan (1) Urinary tract infection: Status: Acute (2) Nausea & vomiting: Status: Acute (3) Adult failure to thrive: Status: Acute Plan 71 year old women admitted with urinary tract infection and failure to thrive; very limited intake secondary to the feeling of nausea and dry heaving after any food 1.UTI -E coli sensitive to ceftriaxone -continue ceftriaxone... P.o. Ceftin upon discharge -PT consult in a.m.; will likely need short-term rehab 2.Nausea and vomiting -slow resolving -IV fluids/proton pump inhibitor 3.FTT.. Moderately malnourished -as per dietary ensure t.i.d. DVT prophylaxis Lovenox Attending Dr. Moss Full code Will require ongoing hospitalization for IV antibiotics for presumed UTI pending cultures Quality Stroke Does the patient have a stroke diagnosis?: No VTE Prior VTE?: No VTE Risk Level:: Medical - moderate - high VTE Device Contraindication: Treatment Not Indicated VTE Drug Contraindication: N/A - Med Ordered
[2022-01-04] MEDS: cefTRIAXone sodium 1 GM in 0.9 % Sodium Chloride 50 ML IV (15:25)
[2022-01-04] MEDS: Enoxaparin Sodium 40 MG/0.4 ML SYRINGE SUBCUT (15:26)
[2022-01-05 03:56] VITALS: BP 129/78; PULSE 84; RESP 18; TEMP 36.3; O2SAT 96
[2022-01-05] MEDS: Omeprazole 40 MG CAPSULE.DR PO (05:47)
[2022-01-05 07:15] LABS: MANUAL DIFF FLAG NO
[2022-01-05 07:19] LABS: Basophils Percent Auto 0.8 % (0-2); Eosinophils Absolute Auto 0.1 X10*3/uL (0.0-0.4); Eosinophils Percent Auto 1.6 % (0-4); Hematocrit 44.9 % (37.0-47.0); Imm Gran Abs Auto 0.01 X10*3/uL (0.00-0.03); Imm Gran Pct Auto 0.3 % (0.0-0.4); Lymphocytes Absolute Auto 0.9 X10*3/uL (1.2-4.9); Lymphocytes Percent Auto 22.4 % (20-40); Mean Corpuscular HGB Conc 33.4 g/dl (31.0-35.0); Mean Corpuscular Hemoglobin 30.2 pg (27.0-33.0); Mean Corpuscular Volume 90.5 fL (80.0-98.0); Mean Platelet Volume 10.9 fL (9.4-12.3); Monocytes Absolute Auto 0.4 X10*3/uL (0.1-1.2); Monocytes Percent Auto 9.7 % (2-11); Neutrophils Absolute Auto 2.5 x10*3/uL (2.0-8.3); Neutrophils Percent Auto 65.2 % (45-73); Platelet Count 166 X10*3/uL (160-400); Red Blood Count 4.96 X10*6/uL (4.20-5.50); White Blood Count 3.8 X10*3/uL (4.8-10.8)
[2022-01-05 07:48] LABS: Alanine Aminotransferase 64 U/L (0-31); Alkaline Phosphatase 59 U/L (39-117); Anion Gap 14 (12-20); Aspartate Amino Transferase 81 U/L (5-31); Bilirubin Total 0.7 mg/dL (0.0-1.0); Blood Urea Nitrogen 7 mg/dL (9-16); Calcium 8.9 mg/dL (8.4-10.2); Carbon Dioxide 32 mmol/L (22-29); Chloride 98 mmol/L (96-108); Creatinine Clr Calc Pharmacy 83.7; Estimated Glomerular Filt Rate > 60; Glucose Fasting 77 mg/dL (60-99); Potassium 3.7 mmol/L (3.3-5.1); Sodium 140 mmol/L (135-145); Total Protein 5.1 g/dL (6.5-8.0)
[2022-01-05 07:50] VITALS: BP 118/61; PULSE 82; RESP 18; TEMP 36; O2SAT 99
[2022-01-05] MEDS: 0.9 % Sodium Chloride Flush 3 ML SYRINGE IVFLUSH ×3 (09:43→21:03)
--- NOTE | 2022-01-05 10:13 | P.PNIM_ITS ---
Subjective Subjective Date of Service: 01/05/22 Interval History: Slowly increasing diet. No witnessed vomiting Review of Systems Denies chest pain Shortness of breath Admits nausea Denies vomiting diarrhea Physical Exam Vital Signs: Vital Signs: Last Vital Signs Temp 96.8 F 01/05/22 07:50 Pulse 82 01/05/22 07:50 Resp 18 01/05/22 07:50 BP 118/61 01/05/22 07:50 Pulse Ox 99 01/05/22 07:50 O2 Del Method 01/05/22 07:50 BMI result Body Mass Index 18.1 Const: Other: Anxious but no acute distress Resp: Other: Clear to auscultation bilaterally no rales rhonchi or wheezes Cardio: Other: No S4; positive S1-S2; no S3 murmurs rubs or gallops GI: Other: Soft nontender non distended positive bowel sounds Skin: Other: Stage I buttocks ulcer Extrem: Other: No edema bilaterally Objective Data Active Medications Acetaminophen (Acetaminophen 325 Mg Tablet) 650 mg PO Q6H PRN PRN Reason: Pain, Mild (Pain Scale 1-3) Enoxaparin Sodium (Enoxaparin Sodium 40 Mg/0.4 Ml Syringe) 40 mg SUBCUT Q24H [facility] Last Admin: 01/04/22 15:26 Dose: 40 mg Documented By: SONG Ceftriaxone Sodium 1 gm/ (Sodium Chloride) 50 mls @ 100 mls/hr IV Q24H [facility] Last Infusion: 01/04/22 16:13 Dose: 0 mls/hr Documented By: SONG Omeprazole (Omeprazole 40 Mg Capsule.) 40 mg PO DAILY@0630 [facility] Last Admin: 01/05/22 05:47 Dose: 40 mg Documented By: TONYORALAni Ondansetron HCl (Ondansetron Hcl 4 Mg/2 Ml Vial) 4 mg IVPUSH Q6H PRN PRN Reason: Nausea and Vomiting Last Admin: 01/02/22 19:30 Dose: 4 mg Documented By: ARIAN Pharmacy Consult (Consult Rx Perform Med Rec) 1 each MISCELLANE ONCE PRN PRN Reason: Consult order Sodium Chloride (0.9 % Sodium Chloride Flush 3 Ml Syringe) 3 ml IVFLUSH QSHIFT [facility] Last Admin: 01/05/22 09:43 Dose: 3 ml Documented By: HO.COTEMA Labs CBC & Chem 7: 01/05/22 06:39 01/05/22 06:39 Labs: Laboratory Results - last 24 hr 01/05/22 01/05/22 06:39 06:39 MCV 90.5 MCH 30.2 MCHC 33.4 RDW 14.0 Plt Count 166 MPV 10.9 Immature Gran % (Auto) 0.3 Neut % (Auto) 65.2 Lymph % (Auto) 22.4 [place] % (Auto) 9.7 Eos % (Auto) 1.6 Baso % (Auto) 0.8 Lymph # (Auto) 0.9 L [place] # (Auto) 0.4 Eos # (Auto) 0.1 Baso # (Auto) 0.0 Abs Immat Gran (auto) 0.01 Absolute Neuts (auto) 2.5 Absolute Nucleated RBC 0.000 Nucleated RBC % (auto) 0.0 Anion Gap 14 Estim Creat Clear Calc 83.7 Estimated GFR > 60 Fasting Glucose 77 Calcium 8.9 Total Bilirubin 0.7 AST 81 H ALT 64 H Alkaline Phosphatase 59 D Total Protein 5.1 L Albumin 3.0 L Microbiology Microbiology Results: Microbiology 12/30/21 15:52 Blood Culture - Final Blood - Venous No growth after 5 days. 12/30/21 15:35 Blood Culture - Final Blood - Venous No growth after 5 days. Assessment and Plan (1) Urinary tract infection: Status: Acute (2) Nausea & vomiting: Status: Acute (3) Adult failure to thrive: Status: Acute Plan 71 year old women admitted with urinary tract infection and failure to thrive; very limited intake secondary to the feeling of nausea and dry heaving after any food; appetite slowly returning with treatment of UTI 1.UTI -E coli sensitive to ceftriaxone -continue ceftriaxone... P.o. Ceftin upon discharge -PT consult in a.m.; will likely need short-term rehab -agrees to same 2.Nausea and vomiting -slow resolving.. Increase diet as tolerated -IV fluids/proton pump inhibitor(Omeprazole) 3.FTT.. Moderately malnourished -as per dietary ensure t.i.d. -appetite returning -willing to do short-term rehab DVT prophylaxis Lovenox Full code Will require ongoing hospitalization for IV antibiotics for presumed UTI pending cultures Quality Stroke Does the patient have a stroke diagnosis?: No VTE Prior VTE?: No VTE Risk Level:: Medical - moderate - high VTE Device Contraindication: Treatment Not Indicated VTE Drug Contraindication: N/A - Med Ordered
[2022-01-05 12:00] VITALS: BP 122/59; PULSE 80; RESP 18; TEMP 36.4; O2SAT 99
--- NOTE | 2022-01-05 13:21 | MHC.CLN ---
F/U DIET=REGULAR. ENSURE TID PROVIDES ADDITIONAL 1050 KCALS, 60 G PROTEIN. SUPPLEMENT TO PROMOTE WOUND HEALING AND IMPROVE NUTRITIONAL STATUS. STAGE III WOUND TO COCCYX. INTAKE VARIABLE, WITH MOST MEALS 50% X PRIOR 2 DAYS. FOLLOW FOR INTAKE AND WOUND.
--- NOTE | 2022-01-05 13:26 | MHC.CM.PN ---
Addendum entered by Alia Streeter RN 01/05/22 14:36: PER HOSPITALIST PT WILL BE READY FOR D/C TOMORROW, CM MET W/PT WHO REPORTS SHE HAS NO PREFERENCE AND WILL ACCEPT BED AT [facility]. SNF AWARE AND CM HAS ASKED THEM TO GO FOR AUTH. Original Note: EMR reviewed, per hospitalist pt is willing to go to [facility], referral sent to [facility] SNF's and CM will verify preferred facilities.
[2022-01-05 15:39] VITALS: BP 122/69; PULSE 80; RESP 18; TEMP 36.2; O2SAT 100
[2022-01-05] MEDS: Enoxaparin Sodium 40 MG/0.4 ML SYRINGE SUBCUT (15:47)
[2022-01-05] MEDS: cefTRIAXone sodium 1 GM in 0.9 % Sodium Chloride 50 ML IV (15:47)
[2022-01-05 20:00] VITALS: BP 132/60; PULSE 76; RESP 17; TEMP 36.2; O2SAT 96
[2022-01-06] VITALS: BP 120/58; PULSE 79; RESP 17; TEMP 36.5; O2SAT 96
[2022-01-06 03:55] VITALS: BP 131/64; PULSE 80; RESP 17; TEMP 36.6; O2SAT 96
[2022-01-06] MEDS: Omeprazole 40 MG CAPSULE.DR PO (06:01)
[2022-01-06 06:29] LABS: MANUAL DIFF FLAG NO
[2022-01-06 06:37] LABS: Basophils Percent Auto 0.9 % (0-2); Eosinophils Absolute Auto 0.1 X10*3/uL (0.0-0.4); Hematocrit 45.2 % (37.0-47.0); Hemoglobin 15.1 g/dl (12.0-16.0); Imm Gran Abs Auto 0.02 X10*3/uL (0.00-0.03); Imm Gran Pct Auto 0.6 % (0.0-0.4); Lymphocytes Absolute Auto 0.9 X10*3/uL (1.2-4.9); Lymphocytes Percent Auto 24.6 % (20-40); Mean Corpuscular HGB Conc 33.4 g/dl (31.0-35.0); Mean Corpuscular Hemoglobin 29.8 pg (27.0-33.0); Mean Corpuscular Volume 89.3 fL (80.0-98.0); Mean Platelet Volume 10.7 fL (9.4-12.3); Monocytes Absolute Auto 0.4 X10*3/uL (0.1-1.2); Monocytes Percent Auto 11.3 % (2-11); Neutrophils Absolute Auto 2.1 x10*3/uL (2.0-8.3); Neutrophils Percent Auto 60.6 % (45-73); Platelet Count 156 X10*3/uL (160-400); Red Blood Count 5.06 X10*6/uL (4.20-5.50); White Blood Count 3.5 X10*3/uL (4.8-10.8)
[2022-01-06 06:58] LABS: Alanine Aminotransferase 66 U/L (0-31); Albumin Level 2.8 g/dL (3.5-5.0); Alkaline Phosphatase 59 U/L (39-117); Anion Gap 14 (12-20); Aspartate Amino Transferase 76 U/L (5-31); Bilirubin Total 0.7 mg/dL (0.0-1.0); Blood Urea Nitrogen 7 mg/dL (9-16); Calcium 8.6 mg/dL (8.4-10.2); Carbon Dioxide 30 mmol/L (22-29); Chloride 97 mmol/L (96-108); Creatinine Clr Calc Pharmacy 85.6; Estimated Glomerular Filt Rate > 60; Glucose Fasting 60 mg/dL (60-99); Potassium 3.1 mmol/L (3.3-5.1); Sodium 138 mmol/L (135-145); Total Protein 4.8 g/dL (6.5-8.0)
[2022-01-06 08:00] VITALS: BP 133/74; PULSE 83; RESP 16; TEMP 36.3; O2SAT 96
[2022-01-06] MEDS: 0.9 % Sodium Chloride Flush 3 ML SYRINGE IVFLUSH ×2 (08:08→15:39)
[2022-01-06] MEDS: Potassium Chloride ER 20 MEQ TAB.ER.PRT PO ×2 (09:40)
[2022-01-06 11:40] VITALS: BP 123/72; PULSE 81; RESP 16; TEMP 36.3; O2SAT 98
[2022-01-06 11:50] LABS: COVID-19 Test Negative (Negative); IDNOW Serial# 55D5AD1C
--- NOTE | 2022-01-06 14:07 | MHC.CM.PN ---
PT MEDICALLY CLEARED FOR D/C TO [facility] FOR [facility]IC[facility] FOR TRANSPORT AT 5PM
--- NOTE | 2022-01-06 14:34 | PM.DS ---
DS: Providers Provider Date of Service: 01/06/22 Date of admission: 12/30/21 15:23 Primary care physician: Araseli Arora MD Consults: 01/01/22 10:35 Consult to Wound Care Routine Consulting Provider: Anna Clifford Reason for consultation: pressure sore to coccyx Has provider been notified: Yes DS: Diagnosis Discharge Diagnosis (1) Urinary tract infection: Status: Acute (2) Nausea & vomiting: Status: Acute (3) Adult failure to thrive: Status: Acute (4) Hypokalemia: Status: Acute DS: Summary Hospital Course Hospital Course: 71 year old women admitted with urinary tract infection and failure to thrive; very limited intake secondary to the feeling of nausea and dry heaving after any food; appetite slowly returning with treatment of UTI. Hopital course: patient was admitted for for UTI and also decreased oral intake/failure to thrive: started on IV antibiotics seems to be improved UTI soliman, completed treatment ceftriaxone for 7 days. Failure to thrive: Seems to be improving, oral intake seems to be improved. monitor closely oral intake and further management out patiently. Hypokalemia: Repleted, monitor BMP out patiently. patient will be going to rehab. Assessment and plan coordination time spent 50 min. Time Spent with Patient Time attestation: Total time spent providing and/or coordinating discharge services: Discharge coordination time: Greater than 30 minutes Quality: Safe Use of Opioids Does Pt have an Active Cancer Diagnosis on the Problem List?: No Quality: Stroke Does the patient have a stroke diagnosis?: No Physical Exam Vital Signs: Vital Signs: Last Vital Signs Temp 97.4 F 01/06/22 11:40 Pulse 81 01/06/22 11:40 Resp 16 01/06/22 11:40 BP 123/72 01/06/22 11:40 Pulse Ox 98 01/06/22 11:40 O2 Del Method 01/06/22 11:40 BMI result Body Mass Index 18.1 Appearance: Alert.? Oriented. not in distress cvs: rrr, [id number] , no murmur res: clear to auscultation ,no rhonchii or wheezing abd: no rebound or guarding ,nt, bs present. ext pulses present , no cyanosis . buttock stage 1 ulcer neuro: axo3 , nonfocal. DS: Data Data Completed and Pending Labs on day of discharge: Laboratory Results - last 24 hr 01/06/22 01/06/22 01/06/22 06:01 06:01 11:19 WBC 3.5 L RBC 5.06 Hgb 15.1 Hct 45.2 MCV 89.3 MCH 29.8 MCHC 33.4 RDW 14.0 Plt Count 156 L MPV 10.7 Immature Gran % (Auto) 0.6 H Neut % (Auto) 60.6 Lymph % (Auto) 24.6 [place] % (Auto) 11.3 H Eos % (Auto) 2.0 Baso % (Auto) 0.9 Lymph # (Auto) 0.9 L [place] # (Auto) 0.4 Eos # (Auto) 0.1 Baso # (Auto) 0.0 Abs Immat Gran (auto) 0.02 Absolute Neuts (auto) 2.1 Absolute Nucleated RBC 0.000 Nucleated RBC % (auto) 0.0 Sodium 138 Potassium 3.1 L Chloride 97 Carbon Dioxide 30 H Anion Gap 14 BUN 7 L Creatinine 0.45 L Estim Creat Clear Calc 85.6 Estimated GFR > 60 Fasting Glucose 60 Calcium 8.6 Total Bilirubin 0.7 AST 76 H ALT 66 H Alkaline Phosphatase 59 Total Protein 4.8 L Albumin 2.8 L COVID-19 (CHARISSA) Negative COVID-19 Clin Com See Note Additional Comments Additional comments: CT/CT abdomen pelvis w IV con IMPRESSION: 1.? No acute bowel process. 2.? Bilateral ovarian cysts and probable uterine fibroid. Pelvic ultrasound is recommended for further evaluation. 3.? Other incidental findings as described above including possible acute compression fracture superior endplate of L3.. Discharge Plan Discharge Anticipated Discharge Date/Time: 01/06/22 14:21 Patient Disposition: Xfer [facility] Discharge Diagnosis: uti , decreased p.o. intake. hypokalemia Referrals: Araseli Arora MD [Primary Care Provider] - 1 Week Discharge Medications: New omeprazole 40 mg Capsule,Delayed Release(Dr/Ec) 40 mg PO DAILY@0630 Qty: 30 0RF potassium chloride 10 mEq tablet extended release 10 meq PO DAILY Qty: 3 0RF Continued ondansetron 4 mg tablet,disintegrating 4 mg PO Q6-8H PRN (Reason: nausea and vomiting) Qty: 7 0RF Discharge Orders: Discharge Order (Routine); Ordered 01/06/22 Ordered By: Frantz Bowling Diet: Advance to usual diet Activity on Discharge: As tolerated Stand Alone Forms: Patient Portal Discharge page Care Plan Goals: patient was admitted for for UTI and also decreased oral intake/failure to thrive: started on IV antibiotics seems to be improved UTI soliman, completed treatment ceftriaxone for 7 days. Failure to thrive: Seems to be improving, oral intake seems to be improved. monitor closely oral intake and further management out patiently. Hypokalemia: Repleted, monitor BMP out patiently. patient will be going to rehab. Health Concerns: As above. Plan of Treatment: As above. Assessment: As above. Patient Instructions: Failure to Thrive (DC), Urinary Tract Infection in Older Adults (DC)
[2022-01-06 15:17] VITALS: BP 114/64; PULSE 96; RESP 16; TEMP 36.3; O2SAT 98
[2022-01-06] MEDS: cefTRIAXone sodium 1 GM in 0.9 % Sodium Chloride 50 ML IV (15:39)
== END 2022-01-06 17:37 | disposition skilled nursing facility (03) | DRG 690 ==
LOC: HO.ED 15:26 → HO.EDOVER 15:29 → HO.S3 15:33
PROVIDERS: Hospitalist; Nurse Practitioner Family; Admitting Provider Nurse Practitioner Acute Care; Emergency Provider Emergency Medicine; PCP Internal Medicine; Visit Provider Internal Medicine
DX: N39.0 Urinary tract infection, site not specified (principal); Z68.1 Body mass index [BMI] 19.9 or less, adult; E44.0 Moderate protein-calorie malnutrition; L30.9 Dermatitis, unspecified; B96.20 Unspecified Escherichia coli [E. coli] as the cause of diseases classified elsewhere; E87.6 Hypokalemia; R62.7 Adult failure to thrive; Z23 Encounter for immunization; Z88.1 Allergy status to other antibiotic agents; Z79.899 Other long term (current) drug therapy
CPT/HCPCS: 36415; 80048; 80053; 81001; 82947; 83605; 83690; 83735; 84100; 84484; 85025; 87040; 87086; 87088; 87186; 87502; 87635; 90471; 90686; 93005; 96361; 96374; 96375; 97162; 97530; 99218; 99285; J0696; J1650; J2405; J2765; J3475

== ENCOUNTER 2022-01-21 11:03 | Outpatient (REF) | payer MEDICARE, SELFPAY ==
[2022-01-21 14:18] LABS: MANUAL DIFF FLAG NO
[2022-01-21 14:32] LABS: Basophils Absolute Auto 0.1 X10*3/uL (0.0-0.2); Basophils Percent Auto 0.7 % (0-2); Eosinophils Percent Auto 0.4 % (0-4); Hematocrit 45.7 % (37.0-47.0); Hemoglobin 15.2 g/dl (12.0-16.0); Imm Gran Abs Auto 0.06 X10*3/uL (0.00-0.03); Imm Gran Pct Auto 0.8 % (0.0-0.4); Lymphocytes Absolute Auto 0.9 X10*3/uL (1.2-4.9); Mean Corpuscular HGB Conc 33.3 g/dl (31.0-35.0); Mean Corpuscular Hemoglobin 29.8 pg (27.0-33.0); Mean Corpuscular Volume 89.6 fL (80.0-98.0); Mean Platelet Volume 12.1 fL (9.4-12.3); Monocytes Absolute Auto 0.6 X10*3/uL (0.1-1.2); Monocytes Percent Auto 8.3 % (2-11); NRBC Pct Auto 0.8 /100WBC (0.0-0.2); Neutrophils Absolute Auto 5.4 x10*3/uL (2.0-8.3); Neutrophils Percent Auto 76.8 % (45-73); Platelet Count 340 X10*3/uL (160-400); Red Cell Distribution Width 14.3 % (11.0-16.0); White Blood Count 7.1 X10*3/uL (4.8-10.8)
[2022-01-21 14:53] LABS: Alanine Aminotransferase 19 U/L (0-31); Albumin Level 3.7 g/dL (3.5-5.0); Alkaline Phosphatase 65 U/L (39-117); Anion Gap 28 (12-20); Aspartate Amino Transferase 25 U/L (5-31); Bilirubin Total 1.1 mg/dL (0.0-1.0); Blood Urea Nitrogen 18 mg/dL (9-16); Calcium 9.8 mg/dL (8.4-10.2); Carbon Dioxide 28 mmol/L (22-29); Chloride 90 mmol/L (96-108); Estimated Glomerular Filt Rate > 60; Glucose Random 127 mg/dL (60-115); Potassium 3.6 mmol/L (3.3-5.1); Sodium 142 mmol/L (135-145); Total Protein 6.2 g/dL (6.5-8.0)
[2022-01-21 19:46] LABS: Thyroid Stimulating Hormone 2.22 uIU/mL (0.32-4.0)
== END 2022-01-21 11:04 | disposition home or self-care (01) ==
LOC: HO.WFDLDS 11:03
PROVIDERS: Visit Provider Physician Assistant
DX: K58.9 Irritable bowel syndrome, unspecified (principal); R62.7 Adult failure to thrive; R63.4 Abnormal weight loss; F32.A Depression, unspecified
CPT/HCPCS: 36415; 80053; 84443; 85025; 99202

== ENCOUNTER 2022-02-04 12:09 | Inpatient (IN) | payer MEDICARE, SELFPAY ==
--- NOTE | ~2022-02-04 | XR_ITS ---
EXAMINATION: XR CHEST CLINICAL INFORMATION: IJ placement COMPARISON: Earlier same date TECHNIQUE: Frontal view of the chest was obtained. FINDINGS: Endotracheal tube terminates 3.6 cm above the cassandra. Enteric tube terminates in the gastric fundus, side port above the GE junction. Right internal jugular central venous catheter terminates at the superior cavoatrial junction. No focal consolidation. No pleural effusion or pneumothorax. Normal heart size and pulmonary vascularity. Aorta is tortuous and atherosclerotic. XR/XR chest 1V IMPRESSION: ET tube is been retracted now residing in the mid thoracic trachea. Enteric tube within the gastric cardia, side port above the GE junction. Consider advancing. Right IJ catheter properly positioned.
--- NOTE | ~2022-02-04 | CT_ITS ---
EXAMINATION: CT HEAD WITHOUT CONTRAST CLINICAL INFORMATION: Altered mental status. Unresponsive COMPARISON: None TECHNIQUE: Contiguous axial imaging was performed from the skull base to vertex without intravenous administration of contrast. This CT examination was performed using dose optimization techniques as appropriate, variously including the following: *Automated exposure control *Adjustment of mA and/or kV according to patient size (this includes techniques or standardized protocols for targeted exams where dose is matched to indication/reason for exam; i.e. extremities or head) *Use of iterative reconstruction technique DLP: 775 mGy-cm FINDINGS: There is no acute intra-axial, extra-axial bleed, masses or midline shift. No acute infarct or edema. The fletcher to white matter difference is maintained. The lateral ventricles are symmetrical in size and configuration with moderate enlargement. There is diffuse periventricular hypodensity in both cerebral hemispheres without mass effect.. Bone windows reveal no calvarial abnormality. There is no scalp soft tissue normality. Bilateral paranasal sinuses and mastoid air cells are well-aerated. CT/CT head/brain wo IV con IMPRESSION: No acute intracranial process seen
--- NOTE | ~2022-02-04 | XR_ITS ---
EXAMINATION: XR CHEST CLINICAL INFORMATION: Intubation COMPARISON: 01/27/2022 TECHNIQUE: Frontal view of the chest was obtained. FINDINGS: Interval intubation with endotracheal tube terminating in the right mainstem bronchus. Recommend retraction. No focal consolidation. No pleural effusion or pneumothorax. Normal heart size and pulmonary vascularity. Aorta is tortuous and atherosclerotic. XR/XR chest 1V IMPRESSION: Right mainstem intubation. Recommend repositioning.
--- NOTE | ~2022-02-04 | XR_ITS ---
EXAMINATION: XR CHEST CLINICAL INFORMATION: Cough COMPARISON: None TECHNIQUE: Frontal view of the chest was obtained. FINDINGS: The cardiac and mediastinal contours are normal. The lungs are well inflated. The lungs are clear. No pleural effusion or pneumothorax. Degenerative changes of the spine. XR/XR chest 1V IMPRESSION: Well-inflated lungs. No evidence for acute disease in the chest.
--- NOTE | 2022-02-04 12:13 | ECG_ITS ---
Test Reason : lethargy Blood Pressure : / mmHG Vent. Rate : 093 BPM Atrial Rate : 093 BPM P-R Int : 144 ms QRS Dur : 080 ms QT Int : 380 ms P-R-T Axes : 083 -65 089 degrees QTc Int : 472 ms Normal sinus rhythm Left anterior fascicular block Minimal voltage criteria for LVH, may be normal variant ( [place] product ) Cannot rule out Anteroseptal infarct (cited on or before 04-FEB-2022) Abnormal ECG When compared with ECG of 30-DEC-2021 10:03, No significant change was found Referred By: Julissa Paz Electronically Signed By:MARY MUÑIZ MD
[2022-02-04 12:20] VITALS: BP 88/54; BP 90/72; PULSE 100; PULSE 98; RESP 16; TEMP 36.5; O2SAT 98; BMI 17.2
--- NOTE | 2022-02-04 12:44 | ED_ITS ---
HPI - General Adult General Chief complaint: General Medical Stated complaint: Lethargy, no appetite per EMS Time Seen by Provider: 02/04/22 12:13 History of Present Illness HPI narrative: 71-year-old female who presents via EMS with complaints of poor appetite, fatigue and lethargy but denies any fever, chills, shortness of breath, chest pain or palpitations denies any GI or symptoms at this time. Patient is unsure of her medications and states that she lives with her son. On review of her documentation did appears that she has been seen for failure to thrive, UTI, diverticulitis. Related Data Home Medications Medication Instructions Recorded Confirmed lorazepam 0.5 mg tablet 0.5 mg PO insomnia 01/21/22 mirtazapine 15 mg tablet 15 mg PO DAILY 01/21/22 01/21/22 Previous Rx's Medication Instructions Recorded ondansetron 4 mg disintegrating 4 mg PO Q6-8H PRN nausea and 12/22/21 tablet vomiting #7 tabs omeprazole 40 mg capsule,delayed 40 mg PO DAILY@0630 #30 caps 01/06/22 release potassium chloride 10 mEq 10 meq PO DAILY #3 tabs 01/06/22 tablet,extended release Allergies Allergy/AdvReac Type Severity Reaction Status Date / Time Clinoril Allergy Unknown Rash Verified 01/21/22 10:06 doxycycline AdvReac Unknown VOMITING Verified 01/21/22 10:06 Review of Systems Review of Systems: Pertinent positives and negatives as stated in HPI. FORMERLY [facility], [facility] Past Medical History Source: nursing notes reviewed Social History Social History Household Members: Children Housing: House Do you presently have visiting nurse or other home services: No Alcohol intake: former Patient Tobacco Use Status: Never used Tobacco Smoked in Last 30 Days: No Substance Use Type: Marijuana Advance Directives: Yes Advance Directives Information Provided: No Advance Directives on File: No service: No Current occupational status: retired and disabled Physical Exam ED Vital Signs: Vital Signs - 24 hr 02/04/22 12:20 02/04/22 14:07 02/04/22 15:58 Temperature 97.7 F 97.7 F Pulse Rate 98 81 81 Respiratory Rate 16 16 11 L Blood Pressure 88/54 L 107/58 L 96/45 L Pulse Oximetry 98 96 99 Oxygen Delivery Method Room Air Room Air Room Air BMI result Body Mass Index 17.2 VITAL SIGNS: Reviewed. GENERAL: Appears older than stated age, cachectic, in no acute distress. HEAD: Normocephalic/atraumatic, temporal wasting noted EYES: PERRLA, EOMI EARS: Ext canals without abnormality OROPHARYNX: no oral lesions noted, posterior pharynx clear LUNGS: Normal breath sounds. No adventitious sounds or accessory muscle use. SpO2<98> CARDIOVASCULAR: Regular rate and rhythm without noted murmurs, no JVD or lower extremity edema. ABDOMEN: Soft, non-tender, non-distended with bowel sounds. BACK: pressure ulcer at sacral,coccyx, clean-based MUSCULOSKELETAL: No tenderness, deformities, or effusions noted on gross inspection. EXTREMITIES: No cyanosis, clubbing or edema. SKIN: Inspection of the skin reveals no rashes NEUROLOGIC: Alert and oriented x 3. Strength and sensation to light touch were grossly intact x 4. Course Course Course Narrative: I have reviewed all of patient's laboratory and imaging results. There is no leukocytosis nor is there a left shift, clinically patient appears to be malnutrition and dehydrated, patient has a metabolic alkalosis with anion gap. Patient initially arrived hypotensive and responded well to IV fluid hydration. In addition, patient has an elevated troponin of 50.5 which is not significantly elevated compared to prior but will repeat. In addition, imaging studies are negative for acute findings and will ensure patient does not have a UTI. Due to patient being weakened and having COVID plan is for case management/physical therapy for placement in short-term rehab although this will depend on troponin and urinalysis results. I have signed out to . Medications Administered Discontinued Medications Generic Name Dose Route Start Last Admin Trade Name Freq PRN Reason Stop Dose Admin Sodium Chloride 1,000 mls @ 999 mls/hr 02/04/22 13:30 02/04/22 14:56 Ns IV 02/04/22 14:30 Infused .Q1H1M NANDINI Infusion Medical Decision Making Medical Decision Making [facility] Narrative: 71-year-old female with a prior history of depression, weight loss, failure to thrive presents with lethargy and lack of appetite. Clinically she appears dehydrated with poor skin turgor although she does appear older than stated age. She is noted to have a low blood pressure but suspect that this is due to hydration status and not infection. Labs, imaging, viral testing have been ordered as well as 1 L of saline. Differential Diagnosis Differential Diagnoses: The differential diagnosis associated with the presentation includes Dehydration, depression, failure to thrive Admission/Observation Consideration of admission/observation: Escalation of care including admission/observation considered Will await results of urinalysis and repeat troponin. Lab Data MDM Lab Attestation statement: I reviewed the patient's lab results. Please see the course Section for discussion Result Diagrams: 02/04/22 13:47 02/04/22 13:47 Labs: Lab Results 02/04/22 02/04/22 02/04/22 Range/Units 13:47 13:47 13:47 WBC 6.2 (4.8-10.8) X10*3/uL RBC 4.42 (4.20-5.50) X10*6/uL Hgb 13.1 (12.0-16.0) g/dl Hct 39.7 (37.0-47.0) % MCV 89.8 (80.0-98.0) fL MCH 29.6 (27.0-33.0) pg MCHC 33.0 (31.0-35.0) g/dl RDW 14.5 (11.0-16.0) % Plt Count 179 D (160-400) X10*3/uL MPV 10.9 (9.4-12.3) fL Immature Gran % (Auto) 1.6 H (0.0-0.4) % Neut % (Auto) 73.0 (45-73) % Lymph % (Auto) 16.8 L (20-40) % [place] % (Auto) 7.3 (2-11) % Eos % (Auto) 0.8 (0-4) % Baso % (Auto) 0.5 (0-2) % Lymph # (Auto) 1.0 L (1.2-4.9) X10*3/uL [place] # (Auto) 0.5 (0.1-1.2) X10*3/uL Eos # (Auto) 0.1 (0.0-0.4) X10*3/uL Baso # (Auto) 0.0 (0.0-0.2) X10*3/uL Abs Immat Gran (auto) 0.10 H (0.00-0.03) X10*3/uL Absolute Neuts (auto) 4.5 (2.0-8.3) x10*3/uL Absolute Nucleated RBC 0.020 H (0.0-0.012) X10*3/uL Nucleated RBC % (auto) 0.3 H (0.0-0.2) /100WBC PT (10.0-13.1) SEC INR (0.9-1.1) Sodium 145 (135-145) mmol/L Potassium 3.6 (3.3-5.1) mmol/L Chloride 92 L (96-108) mmol/L Carbon Dioxide 31 H (22-29) mmol/L Anion Gap 26 H (12-20) BUN 35 H (9-16) mg/dL Creatinine 1.02 (0.5-1.4) mg/dL Estim Creat Clear Calc 35.7 Estimated GFR 53 Random Glucose 75 (60-115) mg/dL Calcium 8.8 D (8.4-10.2) mg/dL Total Bilirubin 0.6 (0.0-1.0) mg/dL AST 16 (5-31) U/L ALT 13 (0-31) U/L Alkaline Phosphatase 63 (39-117) U/L Troponin I High Sens (<3.5-17.0) ng/L Total Protein 5.5 L (6.5-8.0) g/dL Albumin 3.3 L (3.5-5.0) g/dL Influenza Type A (PCR) NEGATIVE (Negative) Influenza Type B (PCR) NEGATIVE (Negative) RSV RNA Qual (PCR) NEGATIVE (Negative) SARS-CoV-2 RNA (RT-PCR) POSITIVE A (Negative) 02/04/22 02/04/22 Range/Units 13:47 13:47 WBC (4.8-10.8) X10*3/uL RBC (4.20-5.50) X10*6/uL Hgb (12.0-16.0) g/dl Hct (37.0-47.0) % MCV (80.0-98.0) fL MCH (27.0-33.0) pg MCHC (31.0-35.0) g/dl RDW (11.0-16.0) % Plt Count (160-400) X10*3/uL MPV (9.4-12.3) fL Immature Gran % (Auto) (0.0-0.4) % Neut % (Auto) (45-73) % Lymph % (Auto) (20-40) % [place] % (Auto) (2-11) % Eos % (Auto) (0-4) % Baso % (Auto) (0-2) % Lymph # (Auto) (1.2-4.9) X10*3/uL [place] # (Auto) (0.1-1.2) X10*3/uL Eos # (Auto) (0.0-0.4) X10*3/uL Baso # (Auto) (0.0-0.2) X10*3/uL Abs Immat Gran (auto) (0.00-0.03) X10*3/uL Absolute Neuts (auto) (2.0-8.3) x10*3/uL Absolute Nucleated RBC (0.0-0.012) X10*3/uL Nucleated RBC % (auto) (0.0-0.2) /100WBC PT 10.4 (10.0-13.1) SEC INR 0.9 (0.9-1.1) Sodium (135-145) mmol/L Potassium (3.3-5.1) mmol/L Chloride (96-108) mmol/L Carbon Dioxide (22-29) mmol/L Anion Gap (12-20) BUN (9-16) mg/dL Creatinine (0.5-1.4) mg/dL Estim Creat Clear Calc Estimated GFR Random Glucose (60-115) mg/dL Calcium (8.4-10.2) mg/dL Total Bilirubin (0.0-1.0) mg/dL AST (5-31) U/L ALT (0-31) U/L Alkaline Phosphatase (39-117) U/L Troponin I High Sens 50.5 H* (<3.5-17.0) ng/L Total Protein (6.5-8.0) g/dL Albumin (3.5-5.0) g/dL Influenza Type A (PCR) (Negative) Influenza Type B (PCR) (Negative) RSV RNA Qual (PCR) (Negative) SARS-CoV-2 RNA (RT-PCR) (Negative) Independent Interpretation I performed an independent interpretation of an: EKG Interpretation: Normal sinus rhythm, HR-93, no STEMI, CT/QRS/QTC is within normal limits. Radiology Impression Radiologist Impression: My interpretation is in agreement with the radiology impression of imaging studies. External Record Review External record reviewed: Outpatient record and Prior outpatient labs Critical Care Time Critical Care Time Critical Care Time: Yes Total Critical Care Time: 60 Attestation: I personally attest to this time spent taking care of the patient. Discharge Plan Discharge Clinical Impression: Viral syndrome, Lab test positive for detection of COVID-19 virus, Decubitus ulcer of sacral area, Dehydration Patient Disposition: Still a Patient Prescriptions: No Action omeprazole 40 mg Capsule,Delayed Release(Dr/Ec) 40 mg PO DAILY@0630 Qty: 30 0RF potassium chloride 10 mEq tablet extended release 10 meq PO DAILY Qty: 3 0RF ondansetron 4 mg tablet,disintegrating 4 mg PO Q6-8H PRN (Reason: nausea and vomiting) Qty: 7 0RF lorazepam 0.5 mg tablet 0.5 mg PO mirtazapine 15 mg tablet 15 mg PO DAILY
--- NOTE | 2022-02-04 13:07 | MHC.EDTECH ---
EKG and blood draw attempted, pt nauseous and vomiting at the time, unable to obtain. RN aware, requesting zofran order. will re-attempt EKG and blood draw.
[2022-02-04] MEDS: 0.9 % Sodium Chloride 1,000 ML 999 ML IV ×2 (13:32→17:58)
[2022-02-04 13:54] LABS: Basophils Percent Auto 0.5 % (0-2); Eosinophils Absolute Auto 0.1 X10*3/uL (0.0-0.4); Eosinophils Percent Auto 0.8 % (0-4); Hematocrit 39.7 % (37.0-47.0); Hemoglobin 13.1 g/dl (12.0-16.0); Imm Gran Pct Auto 1.6 % (0.0-0.4); Lymphocytes Percent Auto 16.8 % (20-40); MANUAL DIFF FLAG NO; Mean Corpuscular Hemoglobin 29.6 pg (27.0-33.0); Mean Corpuscular Volume 89.8 fL (80.0-98.0); Mean Platelet Volume 10.9 fL (9.4-12.3); Monocytes Absolute Auto 0.5 X10*3/uL (0.1-1.2); Monocytes Percent Auto 7.3 % (2-11); NRBC Pct Auto 0.3 /100WBC (0.0-0.2); Neutrophils Absolute Auto 4.5 x10*3/uL (2.0-8.3); Platelet Count 179 X10*3/uL (160-400); Red Blood Count 4.42 X10*6/uL (4.20-5.50); Red Cell Distribution Width 14.5 % (11.0-16.0); White Blood Count 6.2 X10*3/uL (4.8-10.8)
--- NOTE | 2022-02-04 14:00 | PC.NURSE ---
patient a/ox3 . pearrla . heart rate regular at 88 beats per minutes . breathing even and unlabored . lungs clear throughout . skin dry , thin and dry . abdomen soft . hypoactive bowel sounds noted throughout . IV placed in left hand , patient hypotensive on admission , Provider Dr Tristin herrera Aware . Normal saline started as ordered . Patient on director of cardiac rehabilitation . labs obtained and sent . patient aware of plan of care .
[2022-02-04 14:04] LABS: INTERNATIONAL NORM RATIO 0.9 (0.9-1.1); Prothrombin Time 10.4 SEC (10.0-13.1)
[2022-02-04 14:07] VITALS: BP 107/58; PULSE 81; RESP 16; O2SAT 96
[2022-02-04 14:38] LABS: Influenza A PCR NEGATIVE (Negative); Influenza B PCR NEGATIVE (Negative); Resp Syncy Virus RNA Qual PCR NEGATIVE (Negative); SARS COV2 PCR INHOUSE POSITIVE (Negative)
[2022-02-04 14:51] LABS: Alanine Aminotransferase 13 U/L (0-31); Albumin Level 3.3 g/dL (3.5-5.0); Alkaline Phosphatase 63 U/L (39-117); Anion Gap 26 (12-20); Aspartate Amino Transferase 16 U/L (5-31); Bilirubin Total 0.6 mg/dL (0.0-1.0); Blood Urea Nitrogen 35 mg/dL (9-16); Calcium 8.8 mg/dL (8.4-10.2); Carbon Dioxide 31 mmol/L (22-29); Chloride 92 mmol/L (96-108); Creatinine Clr Calc Pharmacy 35.7; Estimated Glomerular Filt Rate 53; Glucose Random 75 mg/dL (60-115); Potassium 3.6 mmol/L (3.3-5.1); Sodium 145 mmol/L (135-145); Total Protein 5.5 g/dL (6.5-8.0)
[2022-02-04 14:58] LABS: Troponin-I High Sensitivity 50.5 ng/L (<3.5-17.0)
[2022-02-04 15:58] VITALS: BP 96/45; PULSE 81; RESP 11; TEMP 36.5; O2SAT 99
--- NOTE | 2022-02-04 16:17 | MHC.EDTECH ---
Cleaning patient quarter sized wound found on coccyx, alerted RN Antonia. Area cleaned, barrier cream, and nonadhesive pad applied per RN's orders.
--- NOTE | 2022-02-04 18:09 | PHA.MEDREC ---
Pharmacy Consult ? Medication Reconciliation Pharmacy has completed the medication reconciliation. Spoke to pt's son Jose
[2022-02-04 20:02] LABS: Anion Gap 23 (12-20); Blood Urea Nitrogen 31 mg/dL (9-16); Carbon Dioxide 26 mmol/L (22-29); Chloride 98 mmol/L (96-108); Creatinine Clr Calc Pharmacy 41.9; Estimated Glomerular Filt Rate > 60; Glucose Random 65 mg/dL (60-115); Potassium 3.7 mmol/L (3.3-5.1); Sodium 143 mmol/L (135-145)
[2022-02-04 20:07] LABS: Troponin-I High Sensitivity 35.6 ng/L (<3.5-17.0)
[2022-02-04 21:01] VITALS: BP 91/51; PULSE 74; RESP 13
[2022-02-04 22:08] VITALS: BP 95/54; PULSE 76; RESP 14
--- NOTE | 2022-02-04 22:08 | MHC.CM.ED ---
CM met with patient at request of Dr. Paz. Pt has been failing at home, dehydrated, weak. Diagnosed with Covid 19. Has decubitus on sacral area. Will need wound care. States she lives with son in a mobile home. Has W/C, cane/walker. HCP on file. HCP/son Jose Kerns ([phone]). Pt is essentially homebound. Son works. Pt tells CM she was more independent, but needs more help now. Moderna x2/booster x1/ PT is pending. Pt was recently at [facility] and d/c to [facility]. Pt is agreeable to STR, but does not want to return to [facility]. Will place local referrals. Pt quite upset about Covid diagnosis. CM explained that she is not symptomatic and having no resp issues, but perhaps her lethargy and decreased appetite are due to the Covid. Pt requests CM call her son. CM spoke with son, Jose, who tells CM that he cannot care for his mother. Requests STR and probably LTC for her, as he works time study technologist and she needs too much assistance. States she has been falling at home. CM explained that pt will have a PT assessment and hopefully STR. Explained that there needs to be a payor source for LTC; either money, LTC insurance or . Explained that it is a process. Explained to son that he can speak with social media director at STR to start process for transition to LTC. CM also informed son about Covid diagnosis and suggested he monitor himself for symptoms, as his mother is homebound, without services and he works time study technologist. Son aware that CM will call him with bed offers. Aware that Covid diagnosis can be a barrier to STR admissions. CM will follow for d/c planning.
[2022-02-04 22:15] LABS: Appearance Urine Turbid; Color Urine Yellow; Glucose Urine UA Negative (Negative); Leukocyte Esterase Urine Large (3+) (Negative); Nitrite Urine Negative (Negative); Specific Gravity - Urine 1.015 (1.005-1.025); UMIC TRIGGER UACC YES; Urine Blood Trace (Negative); Urine Ketones 15 mg/dL (Negative); Urine Protein Trace mg/dL (Neg-Trace)
[2022-02-04 22:30] LABS: UACC Culture Trigger YES; WBC Urine >50 /HPF (0-5)
[2022-02-04 22:31] LABS: Bacteria Urine 3+ (None Seen); Hyaline Casts Urine 0-2 /LPF (0-2)
[2022-02-04 22:34] VITALS: BP 101/59; PULSE 78; RESP 18; TEMP 35.3; O2SAT 99
--- NOTE | 2022-02-04 23:01 | PC.NURSE ---
Pt hypothermic with rectal temp of 95.6F. Nish ramírez applied and made aware. Per Dr Haynes new plan is for pt to be admitted.
[2022-02-04] MEDS: cefTRIAXone sodium 1 GM in 0.9 % Sodium Chloride 50 ML IV (23:12)
--- NOTE | 2022-02-04 23:13 | PC.NURSE ---
No orders for blood cultures. Two sets of blood cultures drawn prior to starting the antibiotics.
--- NOTE | 2022-02-04 23:46 | P.HPHOSP_ITS ---
History of Present Illness Date of Service: 02/04/22 Chief Complaint: weakness 71-year-old female who denies any past medical history presents to the hospital with complaints of generalized weakness, fatigue, and poor oral intake. Patient reports that her symptoms have been going on for the past 1 week, she is alert, oriented x3. Reports that she lives with her son but has not been able to eat much due to loss of appetite. She denies any chest pain, no shortness of breath, no cough, no abdominal pain nausea or vomiting, no diarrhea constipation, no urinary symptoms and no lower extremity edema. On her initial to the ED patient found to have a temperature of 97.7 degrees, heart rate of 98, respiratory rate of 16, blood pressure of 88/54, satting 98% on room air According to records patient received 2 units of fluids with improvement her blood pressure therefore given her weakness it was decided that patient may need rehab and patient was under physician observation in the ED for case management. At around 23:30 patient was noted to be hypothermic, sepsis protocol was ordered, patient was found to be positive for infection in the urine. On my interview patient was alert, oriented. Response to questions appropriately. She was noted to be hypotensive, but also dehydrated, started bolus fluid. Lab significant for WBC count 6.2, BUN of 35, creatinine of 1.02, albumin of 3.3, UA positive, COVID-19 positive Chest x-ray shows well inflated lungs with no evidence of acute disease in the chest. Review of Systems Review of Systems: Yes all other systems are reviewed and are negative [facility] Social History Household Members: Children Housing: House Do you presently have visiting nurse or other home services: No Alcohol intake: former Patient Tobacco Use Status: Never used Tobacco Smoked in Last 30 Days: No Substance Use Type: Marijuana Advance Directives: Yes Advance Directives Information Provided: No Advance Directives on File: No service: No Current occupational status: retired and disabled Meds Allergies Allergy/AdvReac Type Severity Reaction Status Date / Time [place] Allergy Unknown Rash Verified 01/21/22 10:06 doxycycline AdvReac Unknown VOMITING Verified 01/21/22 10:06 Active Medications: Current Medications Pharmacy Consult (Consult Rx Perform Med Rec) 1 each MISCELLANE ONCE PRN PRN Reason: Consult order Home Medications Medication Instructions Recorded Confirmed Last Taken Type mirtazapine 15 mg tablet 15 mg PO BEDTIME 01/21/22 02/04/22 02/03/22 History Physical Exam Vital Signs and Narrative: Vital Signs: Last Vital Signs Temp 95.6 F L 02/04/22 22:34 Pulse 78 02/04/22 22:34 Resp 18 02/04/22 22:34 BP 101/59 L 02/04/22 22:34 Pulse Ox 99 02/04/22 22:34 O2 Del Method 02/04/22 22:34 BMI result Body Mass Index 17.2 Const: Other: Appears very frail, alert oriented to self time and place. General: cooperative and no acute distress Orientation/consciousness: patient oriented x3 Eyes: General: appearance normal, both eyes and all related structures Pupils: Equal, round and reactive pupils present Resp: Effort & Inspection: normal respiratory effort Auscultation: clear to auscultation bilaterally Cardio: Rate: regular rate Rhythm: regular rhythm GI: Palpation (GI): Soft to palpation Auscultation: normal bowel sounds Skin: Other: Dry mucosal membranes General skin exam: no rashes or lesions noted Neuro: General: patient oriented x3 Cranial nerves: Yes Equal, round and reactive pupils present Cognition (Neuro): normal cognition Extrem: Other: Appears dehydrated General: Yes normal to inspection and Yes no pedal edema Results Labs CBC and Chem 7: 02/04/22 13:47 02/04/22 19:29 Labs: Laboratory Results - last 24 hr 02/04/22 02/04/22 02/04/22 13:47 13:47 13:47 MCV 89.8 MCH 29.6 MCHC 33.0 RDW 14.5 Plt Count 179 D MPV 10.9 Immature Gran % (Auto) 1.6 H Neut % (Auto) 73.0 Lymph % (Auto) 16.8 L [place] % (Auto) 7.3 Eos % (Auto) 0.8 Baso % (Auto) 0.5 Lymph # (Auto) 1.0 L [place] # (Auto) 0.5 Eos # (Auto) 0.1 Baso # (Auto) 0.0 Abs Immat Gran (auto) 0.10 H Absolute Neuts (auto) 4.5 Absolute Nucleated RBC 0.020 H Nucleated RBC % (auto) 0.3 H PT INR Anion Gap 26 H Estim Creat Clear Calc 35.7 Estimated GFR 53 Random Glucose 75 Calcium 8.8 D Total Bilirubin 0.6 AST 16 ALT 13 Alkaline Phosphatase 63 Troponin I High Sens Total Protein 5.5 L Albumin 3.3 L Urine Color Urine Appearance Urine pH Ur Specific Ola Urine Protein Urine Glucose (UA) Urine Ketones Urine Blood Urine Nitrite Ur Leukocyte Esterase Urine RBC Urine WBC Ur Squamous Epith Cells Urine Bacteria Hyaline Casts Influenza Type A (PCR) NEGATIVE Influenza Type B (PCR) NEGATIVE RSV RNA Qual (PCR) NEGATIVE SARS-CoV-2 RNA (RT-PCR) POSITIVE A 02/04/22 02/04/22 02/04/22 13:47 13:47 19:29 MCV MCH MCHC RDW Plt Count MPV Immature Gran % (Auto) Neut % (Auto) Lymph % (Auto) [place] % (Auto) Eos % (Auto) Baso % (Auto) Lymph # (Auto) [place] # (Auto) Eos # (Auto) Baso # (Auto) Abs Immat Gran (auto) Absolute Neuts (auto) Absolute Nucleated RBC Nucleated RBC % (auto) PT 10.4 INR 0.9 Anion Gap 23 H Estim Creat Clear Calc 41.9 Estimated GFR > 60 Random Glucose 65 Calcium 8.0 L D Total Bilirubin AST ALT Alkaline Phosphatase Troponin I High Sens 50.5 H* Total Protein Albumin Urine Color Urine Appearance Urine pH Ur Specific Ola Urine Protein Urine Glucose (UA) Urine Ketones Urine Blood Urine Nitrite Ur Leukocyte Esterase Urine RBC Urine WBC Ur Squamous Epith Cells Urine Bacteria Hyaline Casts Influenza Type A (PCR) Influenza Type B (PCR) RSV RNA Qual (PCR) SARS-CoV-2 RNA (RT-PCR) 02/04/22 02/04/22 19:30 22:04 MCV MCH MCHC RDW Plt Count MPV Immature Gran % (Auto) Neut % (Auto) Lymph % (Auto) [place] % (Auto) Eos % (Auto) Baso % (Auto) Lymph # (Auto) [place] # (Auto) Eos # (Auto) Baso # (Auto) Abs Immat Gran (auto) Absolute Neuts (auto) Absolute Nucleated RBC Nucleated RBC % (auto) PT INR Anion Gap Estim Creat Clear Calc Estimated GFR Random Glucose Calcium Total Bilirubin AST ALT Alkaline Phosphatase Troponin I High Sens 35.6 H Total Protein Albumin Urine Color Yellow Urine Appearance Turbid Urine pH 6.0 Ur Specific Ola 1.015 Urine Protein Trace Urine Glucose (UA) Negative Urine Ketones 15 Urine Blood Trace H Urine Nitrite Negative Ur Leukocyte Esterase Large (3+) H Urine RBC 3-5 H Urine WBC >50 Ur Squamous Epith Cells 11-20 Urine Bacteria 3+ Hyaline Casts 0-2 Influenza Type A (PCR) Influenza Type B (PCR) RSV RNA Qual (PCR) SARS-CoV-2 RNA (RT-PCR) Imaging Radiologist's Impressions: Impressions Chest X-Ray 02/04/22 13:02 IMPRESSION: Well-inflated lungs. No evidence for acute disease in the chest. Assessment and Plan (1) Viral syndrome: Status: Acute (2) Generalized weakness: Status: Acute (3) Hypotension: Status: Acute (4) Acute UTI: Status: Acute Plan 71-year-old female who reports no past medical history presents the hospital with generalized weakness and poor appetite found to have COVID-19 infection # COVID-19 infection - asymptomatic - no hypoxia, no cough, no evidence of pneumonia on chest x-ray - monitor for symptoms # acute UTI - positive UA - no leukocytosis, afebrile - will treat with IV antibiotics - follow cultures # hypotension - likely multifactorial in the setting of dehydration as well as acute infection - already received 2 L sepsis bolus in the day, will give 2 more L of fluid given her evidence of dehydration - monitor BP closely, low threshold to transfer to ICU if blood pressure does not improve Code status: Discussed code status with pt she wants to be resuscitated including compression was intubation Time Spent With Patient Time: Total time managing care of this patient today ____ minutes. Quality Stroke Does the patient have a stroke diagnosis?: No VTE Prior VTE?: No VTE Risk Level:: Medical - moderate - high VTE Device Contraindication: Treatment Not Indicated VTE Drug Contraindication: N/A - Med Ordered
[2022-02-05] VITALS (43 sets, daily range): BP systolic 63–171; BP diastolic 29–110; PULSE 65–122; RESP 9–23; TEMP 32–37.4; O2SAT 92–100; BMI 17.5
[2022-02-05] MEDS: Lactated Ringers 1,000 ML 999 ML IV ×2 (00:30→01:36)
--- NOTE | 2022-02-05 00:56 | PC.NURSE ---
Pt aox3. Pt is hypotensive with BP 82/39 MAP 53 HR 79. Continues to be hypothermic with rectal temp 95.6F. Pt continues to be on bear huggers. [place] text sent to Dr. Best. New order to give IV bolus of LR. Dr. Best arrived at the bedside and evaluated pt. Will repeat BP once bolus is complete.
[2022-02-05] MEDS: Heparin Sodium,Porcine 5,000 UNIT/ML VIAL 5000 UNIT SUBCUT ×2 (01:18→11:03)
--- NOTE | 2022-02-05 01:33 | PC.NURSE ---
Bolus of LR completed. [place] text sent to Dr. Best with new BP of 86/46 MAP 60 HR 78 and rectal temp of 95.9F. Dr. Best orders a second bolus of LR and continue stephy huggers. Will update Dr Best once second bolus is completed with updated VSS.
--- NOTE | 2022-02-05 02:59 | PC.NURSE ---
PT became started moaning, not responding to questions. Pt extremely hypotensive. This RN called to the bedside by JIMBO Brown who is providing care for pt. Verbal order of Levophed started at 0.9mcq/per/kg started at 2:41am. Pt being bagged by respiratory. B/P 116/70, 16 R, Pulse 96. taken on the right arm. Levophed decreased to 0.5mcq. pt became A&O. 50mg of propfol push, 20mg of Ishan 2:46am. 2:47am intubation 25 at the lip with a 7 1/2 tube. Siddhartha Noriega at the bed. Pt being transferred to ICU. Reported of to JIMBO Brown.
--- NOTE | 2022-02-05 03:31 | W.PM.CCHP ---
Procedures Date of Service Date of Service: 02/05/22 Intubation Intubation Comments: The glottis was easily visualized with 3 GlideScope, and the trachea was intubated with a 7.5 ETT via? indirect video visualization, atraumatic.? BSBE, +CO2, SpO2 maintained.? The tube was secured at 25 cm at the upper lip. The patient tolerated the procedure well with no complications.? Post Op chest x-ray showed the ETT 2 cm below the cassandra in the right main bronchus..? The tube was pulled back 4 cm and secured at 21 cm at the upper lip.. Consent for Procedure: Emergent-no informed consent obtained Time out performed: Yes Sedative: propofol Mg given: 50 Paralytic: rocuronium Mg given: 20 Laryngoscope: fiber optic video scope ET tube size: 7.5 ET tube uncuffed: Yes Tube secured depth (cm): 21 Tube secured location: lips Tube placement confirmation: visualized tube passing through cords, equal breath sounds bilaterally and confirmation by capnometry Patient tolerated procedure: well and no complications Intubation complications: hypotension
[2022-02-05] MEDS: Furosemide 40 MG/4 ML VIAL IVPUSH (04:00)
--- NOTE | 2022-02-05 04:11 | PC.NURSE ---
Pt is sedated and intubated. Respiratory and ICU provider at the bedside. BP improved with Levophed. 16F Catheter inserted with no issues or concerns. Pt transfered to ICU. Bedside report given to JIMBO Zamudio.
[2022-02-05] MEDS: propofoL 1,000 MG/100 ML VIAL 13.64 MG IVCONT ×2 (05:11→07:26)
[2022-02-05] MEDS: Norepinephrine Bitartrate/D5W 8 MG/250 ML PLAST..BAG 42.61 MG IV (05:23)
[2022-02-05 05:33] LABS: VBG Base Excess 0.2 mmol/L; VBG HCO3 23 mmol/L (22-26); VBG pCO2 32 mmHg; VBG pH 7.46 (7.32-7.43); VBG pO2 41 mmHg
[2022-02-05] MEDS: propofoL 200 MG/20 ML VIAL 50 MG IVPUSH ×2 (05:34→05:35)
[2022-02-05 05:35] LABS: MANUAL DIFF FLAG NO
[2022-02-05] MEDS: Rocuronium Bromide 50 MG/5 ML VIAL 20 MG IVPUSH (05:35)
--- NOTE | 2022-02-05 05:36 | P.CONCC_ITS ---
History of Present Illness Data of Consult Service Date: 02/05/22 Requesting physician: Faith Best Primary Care Provider: Araseli Arora MD HPI Reason for consult: Hypotension Chief Complaint: Weakness HPI: The patient is a 71-year-old female with a past medical history of failure to thrive, UTI, diverticulitis.?? Yesterday, she was BIBA from home where she resides with her son with complaints of poor appetite, fatigue and lethargy for the past 1 week. She denied any fever, chills, shortness of breath, chest pain or palpitations, GI or symptoms.? On her initial evaluation in the ED, she was found to have a temperature of 97.7?, HR 98, RR 16, BP 88/54, O2Sat 98% on RA. She received 2L of fluid with improvement her blood pressure. Clinically, she appeared to be malnourished and dehydrated. Initially she responded well to IV fluid hydration and it was decided that patient would need rehab and was under physician observation in the ED for case management.? At approx 2330 last night, the patient was noted to be hypothermic. Sepsis protocol was ordered, urine showed >50 WBC and 3+ bacteria but was nitrite negative. She was given ceftriaxone. She was noted to be hypotensive, but also dehydrated, and received 2L bolus fluid.?At that time, labs were significant for WBC count 6.2, BUN of 35, creatinine of 1.02, albumin of 3.3,? and she was positive for COVID-19. Chest x-ray shows well inflated lungs with no evidence of acute disease in the chest.? At approx 0300, I were called in consult for admission to the ICU. Despite fluid resuscitation, she continued to be hypotensive (SBP 60's), then suddenly became presyncopal, transiently unresponsive and required respiratory support with 100% O2 via ambubag. She was placed in trendelenburg position and became responsive. She verbalized her wish to have everything done to live. It was immediately apparent that the patient the patient was hemodynamically unstable and in respiratory distress and I prepared to intubate in the ER. She was started on Levophed, her dentures were removed and she was pre-oxygenated with 100% O2. She was then appropriately sedated and paralyzed and was emergently intubated (see separate procedure note). She was then transferred to the ICU.? Upon arrival to the ICU, a CVC was placed in the right IJ (see separate procedure note). Review of Systems Review of Systems: Yes unobtainable due to endotracheal tube and Unobtainable due to mental condition PMFSH Social History Social History Household Members: Unknown / Unable to assess Housing: Unknown / Unable to assess Unable to assess alcohol history related to: Unable to respond and Unknown Alcohol intake: former Patient Tobacco Use Status: Tobacco use Unknown Substance Use Type: Marijuana Advance Directives Date on File: 02/05/22 service: No Current occupational status: retired and disabled Meds Allergies Allergy/AdvReac Type Severity Reaction Status Date / Time [place] Allergy Unknown Rash Verified 01/21/22 10:06 doxycycline AdvReac Unknown VOMITING Verified 01/21/22 10:06 Active Medications: Current Medications Acetaminophen (Acetaminophen 325 Mg Tablet) 650 mg PO Q6H PRN PRN Reason: Pain, Mild (Pain Scale 1-3) Heparin Sodium (Porcine) (Heparin Sodium,Porcine 5,000 Unit/Ml Vial) 5,000 unit SUBCUT Q12H NANDINI Last Admin: 02/05/22 01:18 Dose: 5,000 unit Ceftriaxone Sodium 1 gm/ (Sodium Chloride) 50 mls @ 100 mls/hr IV Q24H NANDINI Propofol (Diprivan) 1,000 mg in 100 mls @ 0 mls/hr IVCONT .Q0M NANDINI; Protocol Last Admin: 02/05/22 05:11 Dose: 50 mcg/kg/min, 13.64 mls/hr Norepinephrine Bitartrate 8 mg (/ Sodium Chloride) 226 mls @ 0 mls/hr IVCONT .Q0M NANDINI; Protocol Norepinephrine Bitartrate (Levophed) 8 mg in 250 mls @ 0 mls/hr IV .Q0M NANDINI; Protocol Last Admin: 02/05/22 05:23 Dose: 0.5 mcg/kg/min, 42.61 mls/hr Ondansetron HCl (Ondansetron Hcl 4 Mg/2 Ml Vial) 4 mg IVPUSH Q8H PRN PRN Reason: Nausea and Vomiting Pharmacy Consult (Consult Rx Perform Med Rec) 1 each MISCELLANE ONCE PRN PRN Reason: Consult order Sodium Chloride (0.9 % Sodium Chloride Flush 3 Ml Syringe) 3 ml IVFLUSH QSHIFT NANDINI Last Admin: 02/05/22 03:45 Dose: Not Given Physical Exam Vital Signs: Vital Signs: Last Vital Signs Temp 95.4 F L 02/05/22 03:54 Pulse 87 02/05/22 03:54 Resp 14 02/05/22 03:54 BP 102/67 02/05/22 03:54 Pulse Ox 100 02/05/22 03:54 O2 Del Method 02/05/22 03:54 FiO2 28 02/05/22 04:11 BMI result Body Mass Index 17.5 Const: General: acute distress (respiratory and hemodynamically unstable) severe and ill appearing acutely Nutritional Appearance: cachectic and malnourished Orientation/consciousness: oriented to person, oriented to place and Other orientation findings (transiently unresponsive) HEENT: Head: Yes normocephalic and Yes atraumatic General nose exam: Normal external nose present (Nares patent, septum midline, sinuses nontender bilaterally.) Mouth: Normal oral and palatal mucosa present (No thrush, tongue in midline, mucosa moist.) Teeth and gingiva: dentures (upper) Throat: Yes other (No erythema, no exudate.) Neck: Neck: Yes supple (trachea midline.) Thyroid: diffusely enlarged and firm Carotids: normal carotid upstroke Resp: Auscultation: crackles bilateral and bronchovesicular breath sounds (coarse) bilateral Cardio: Jugular venous distension: no JVD Rate: regular rate Rhythm: regular rhythm Heart sounds: no gallops, no murmurs and no rubs Peripheral pulses: Peripheral pulses 2+ throughout GI: Palpation (GI): Soft to palpation (nondistended) and nontender Skin: Wounds: wounds noted (Stg III on coccyx) Neuro: General: oriented to person, oriented to place and Unable to assess gait Cranial nerves: Yes Midline tongue present and Yes Ability to bilate rally rotate head present Gait exam (Neuro): Unable to assess gait Extrem: General: Yes full ROM, Yes clubbing and Yes cyanosis (nailbeds) Results Labs CBC & Chem 7: 02/05/22 05:27 02/05/22 05:27 Labs: Short CBC 02/04/22 Range/Units 13:47 WBC 6.2 (4.8-10.8) X10*3/uL Hgb 13.1 (12.0-16.0) g/dl Hct 39.7 (37.0-47.0) % Plt Count 179 D (160-400) X10*3/uL BMP 02/04/22 02/04/22 13:47 19:29 Sodium 145 143 Potassium 3.6 3.7 Chloride 92 L 98 Carbon Dioxide 31 H 26 BUN 35 H 31 H Creatinine 1.02 0.87 Calcium 8.8 D 8.0 L D Liver Function 02/04/22 Range/Units 13:47 Total Bilirubin 0.6 (0.0-1.0) mg/dL AST 16 (5-31) U/L ALT 13 (0-31) U/L Alkaline Phosphatase 63 (39-117) U/L Albumin 3.3 L (3.5-5.0) g/dL Urine 02/04/22 Range/Units 22:04 Urine Color Yellow Urine Appearance Turbid Urine pH 6.0 (5.0-9.0) Ur Specific [place] 1.015 (1.005-1.025) Urine Protein Trace (Neg-Trace) mg/dL Urine Glucose (UA) Negative (Negative) mg/dL ECG Attestation: I personally reviewed and interpreted this ECG as follows: (Normal sinus rhythm, Rate 93 BPM, No significant change when compared with ECG of 30-DEC-2021.) Prior ECG tracings: available for review Imaging Chest x-ray: My impression: No consolidation. No pleural effusion or pneumothorax. Mild pulmonary vascular c ongestion bilaterally. Radiologist's impression: Well-inflated lungs. No evidence for acute disease in the chest. Assessment and Plan (1) Hypotension: Status: Acute (2) Lab test positive for detection of COVID-19 virus: Status: Acute (3) Acute UTI: Status: Acute (4) MAC (acute kidney injury): Status: Acute (5) Dehydration: Status: Acute (6) Generalized weakness: Status: Acute (7) Decubitus ulcer of sacral area: Status: Acute (8) Hypokalemia: Status: Acute (9) Hypophosphatemia: Status: Acute (10) Hypomagnesemia: Status: Acute (11) Hypothermia: Status: Acute (12) Adult failure to thrive: Status: Acute Plan Plan 71 y.o female with a past medical history of failure to thrive, UTI, diverticulitis according to medical record presented with weakness and was later found to be hypotensive despite fluid resuscitation. Neuro:?No acute issues. ? Cardiac: ?Septic shock-?normal white count, mac,? hypotension,? hypothermia.? Urine is positive for UTI? which is likely the source. Continue antibiotics.? ? Pulmonary:?COVID-19 infection. Patient is intubated. CXR showed no consolidation. No pleural effusion. Mild pulmonary vascular congestion likely due to volume overload. Lasic 40mg ordered. ?Will continue to monitor.? Renal:?MAC- most likely related to hypoperfusion, ? Continue to check renal induces and urine output. Potassium, phosphorous, magnesium repleted. Endo: ?No acute issues.??Enlarged thyroid. TSH, thyroid ultrasound ordered. No previous history. GI:?No acute issues. ? ID:?septic shock likely from UTI.? Received ceftriaxone emergency room.?Work-up not done in ER. Lactic acid, blood and sputum cultures ordered. Fluid resuscitated in ER with colloids and crystalloids. Will give empiric antibiotics?until blood culture? resulted.? Heme/Onc: ?As above. Psych:? No acute issues. Diet: NPO DVT Prophylaxis:? SubQ heparin GI Prophylaxis: Omeprazole susp to avoid stress ulcers Time Spent With Patient Time: Total time managing care of this patient today ____ minutes. Critical Care Time Critical Care Time (minutes): 120
--- NOTE | 2022-02-05 05:37 | W.PM.CCHP ---
Procedures Date of Service Date of Service: 02/05/22 Central Line Placement Right IJ: Central Line Comments: The right neck was widely prepped and draped in full sterile fashion.? Under US? guidance, the right IJ vein was cannulated on the 1st pass of the 18 g thin wall needle, with return of dark, nonpulsatile blood. ? The wire was threaded without incident.? The 16 cm x 7 Latvian triple-lumen CVC was advanced into the vein up to the hub via the Seldinger technique without incident.? There was good blood return x3.? The catheter was sutured x2 and a Biopatch and dry sterile dressing were applied. Postop chest x-ray showed the line in good position with no pneumothorax.? The patient tolerated the procedure well with no complications. Consent for Procedure: Emergent-no informed consent obtained Time out performed: Yes Sterile Technique Used: Yes Patient placed on monitor/pulse ox: Yes prep: mask, gown and gloves Central line prep: Chlorhexidine scrub and sterile drapes applied Ultrasound used for placement: Yes Central line lumen inserted: triple Post procedure: sutured in place, good blood return, all ports aspirated, flushed, capped and sterile dressing applied Post procedure x-ray: tip of catheter in good position and no pneumothorax seen Patient tolerated procedure: well and no complications Complications: none
[2022-02-05 05:38] LABS: Basophils Percent Auto 0.4 % (0-2); Eosinophils Absolute Auto 0.1 X10*3/uL (0.0-0.4); Eosinophils Percent Auto 0.7 % (0-4); Hematocrit 39.4 % (37.0-47.0); Hemoglobin 13.1 g/dl (12.0-16.0); Imm Gran Abs Auto 0.11 X10*3/uL (0.00-0.03); Lymphocytes Absolute Auto 1.2 X10*3/uL (1.2-4.9); Lymphocytes Percent Auto 10.9 % (20-40); Mean Corpuscular HGB Conc 33.2 g/dl (31.0-35.0); Mean Corpuscular Hemoglobin 29.9 pg (27.0-33.0); Mean Platelet Volume 11.2 fL (9.4-12.3); Monocytes Absolute Auto 0.2 X10*3/uL (0.1-1.2); Monocytes Percent Auto 2.1 % (2-11); Neutrophils Percent Auto 84.9 % (45-73); Platelet Count 190 X10*3/uL (160-400); Red Blood Count 4.38 X10*6/uL (4.20-5.50); Red Cell Distribution Width 14.6 % (11.0-16.0); White Blood Count 10.6 X10*3/uL (4.8-10.8)
[2022-02-05 06:04] LABS: Magnesium 1.7 mg/dL (1.6-2.6); Phosphorus 2.5 mg/dL (2.7-4.5)
[2022-02-05 06:06] LABS: B Type Natriuretic Peptide 162 pg/mL (<100)
--- NOTE | 2022-02-05 06:06 | PC.NURSE ---
ADMIT TO 253-1 APPROX 03:30 FROM ER DEPT...REMAINS TUBED/VENTED..#7.5 ETT @ 21CM...AC 14/TV 400/FIO2 40% WEANED TO 28%/PEEP 5....LEVOPHED AND PROPOFOL INFUSING VIA PERIPHERAL SITES....COATES YELLOW URINE...NSR WITH FREQUENT PAC'S/PVC'S...WOUND TO COCCYX PHOTOGRAPH IN ER NOTE IN COMPUTER...PROPOFOL TITRATED TO 50 MCG/KG/MIN AND LEVOPHED TO 0.8 MCG/KG/MIN PER ICU INGREDIENT MIXER AND PA...TLC INSERTED TI RIGHT IJ SITE BY ICU NO...OG-TUBE PLACED...PLACEMENT VERIFIED BY CXR...LASIX 40 MG IV X1 POST-ADMISSION PER PA...COATES YELLOW URINE...AM LABS DRAWN/PENDING....LEVOPHED INFUSING VIA TLC AT PRESENT..TO CHANGE LEVOPHED TO X4 CONCENTRATION WHEN AVAILABLE FROM PHARMACY PER ICU INGREDIENT MIXER
[2022-02-05 06:33] LABS: Alanine Aminotransferase 14 U/L (0-31); Alkaline Phosphatase 62 U/L (39-117); Anion Gap 24 (12-20); Aspartate Amino Transferase 19 U/L (5-31); Bilirubin Total 0.6 mg/dL (0.0-1.0); Blood Urea Nitrogen 25 mg/dL (9-16); Calcium 8.3 mg/dL (8.4-10.2); Carbon Dioxide 24 mmol/L (22-29); Chloride 101 mmol/L (96-108); Creatinine Clr Calc Pharmacy 47.1; Estimated Glomerular Filt Rate > 60; Glucose Random 144 mg/dL (60-115); Sodium 146 mmol/L (135-145); Total Protein 4.9 g/dL (6.5-8.0)
[2022-02-05 06:36] LABS: Venous Blood Gas Refer to POC result
[2022-02-05] MEDS: Potassium Phosphate/NS 15 MMOL/250 ML PLAST..BAG 62.5 MMOL IV ×2 (07:26→11:03)
[2022-02-05] MEDS: Magnesium Sulfate/D5W 1 GM/100 ML PIGGYBACK IV (07:26)
[2022-02-05] MEDS: Norepinephrine Bitartrate/D5W 8 MG/250 ML PLAST..BAG 68.18 MG IV (07:27)
[2022-02-05] MEDS: 0.9 % Sodium Chloride Flush 3 ML SYRINGE IVFLUSH (07:30)
--- NOTE | 2022-02-05 09:31 | ECG_ITS ---
Test Reason : rhythm change Blood Pressure : / mmHG Vent. Rate : 119 BPM Atrial Rate : 119 BPM P-R Int : 132 ms QRS Dur : 078 ms QT Int : 314 ms P-R-T Axes : 089 -39 093 degrees QTc Int : 441 ms Sinus tachycardia with Premature atrial complexes Left axis deviation Low voltage QRS Anteroseptal infarct (cited on or before 04-FEB-2022) Anterior injury pattern ACUTE TX / STEMI Abnormal ECG When compared with ECG of 04-FEB-2022 13:14, Referred By: Scott Salazar Electronically Signed By:MARY MUÑIZ MD
[2022-02-05] MEDS: Nitroglycerin 0.4 MG TAB.SUBL SUBLINGUAL (09:48)
--- NOTE | 2022-02-05 09:56 | ECG_ITS ---
Test Reason : rhythm change Blood Pressure : / mmHG Vent. Rate : 120 BPM Atrial Rate : 120 BPM P-R Int : 140 ms QRS Dur : 076 ms QT Int : 314 ms P-R-T Axes : 089 -46 091 degrees QTc Int : 443 ms Sinus tachycardia with Premature supraventricular complexes Left axis deviation Low voltage QRS Anteroseptal infarct (cited on or before 04-FEB-2022) Anterior injury pattern ACUTE WI / STEMI Abnormal ECG When compared with ECG of 05-FEB-2022 09:36, Serial changes of evolving Anteroseptal infarct Present Referred By: Scott Salazar Electronically Signed By:MARY MUÑIZ MD
[2022-02-05] MEDS: Aspirin 325 MG TABLET PO (10:45)
[2022-02-05] MEDS: Atorvastatin Calcium 80 MG TABLET PO (11:03)
[2022-02-05] MEDS: Metoprolol Tartrate 12.5 MG HALFTAB 6.25 MG PO (11:03)
[2022-02-05 11:23] LABS: Venous Blood Gas Refer to POC result
[2022-02-05 11:24] LABS: VBG Base Excess -3.5 mmol/L; VBG HCO3 20 mmol/L (22-26); VBG pCO2 34 mmHg; VBG pH 7.38 (7.32-7.43); VBG pO2 54 mmHg
--- NOTE | 2022-02-05 11:30 | MHC.CLN ---
PT IS MODERATELY MALNOURISHED PT WITH MILD DEPLETION OF SUBCUTANEOUS FAT AND MUSCLE MASS, BMI 17.5, RECENT POOR PO INTAKE WITH INCREASED NUTRITION NEEDS R/T ACUTE ILLNESS AND PRESSURE INJURY PT IS CURRENTLY INTUBATED AND SEDATED DISCUSSED AT ROUNDS WITH MD TO START TF TODAY; RECOMMEND PROMOTE AT MAX GOAL RATE 45ML/HR WITH 120ML FREE WATER FLUSHES Q 6 HRS TO PROVIDE 1080KCALS (1440KCLAS WITH SEDATION; 31KCALS/KG), 67.5G PROTEIN (1.45G/KG), 1386ML TOTAL WATER FROM FORMULA AND FLUSHES MONITOR TOLERANCE, RESIDUALS AND LYTES SEE ALSO FULL CLINICAL NUTRITION ASSESSMENT
[2022-02-05 11:31] LABS: PTT Heparin Drip 25.5 SEC (53-77.9)
--- NOTE | 2022-02-05 11:38 | ECG_ITS ---
Test Reason : rhythm check Blood Pressure : / mmHG Vent. Rate : 108 BPM Atrial Rate : 108 BPM P-R Int : 140 ms QRS Dur : 078 ms QT Int : 342 ms P-R-T Axes : 086 -56 098 degrees QTc Int : 458 ms Sinus tachycardia Left anterior fascicular block Anteroseptal infarct (cited on or before 04-FEB-2022) ACUTE RI / STEMI Abnormal ECG When compared with ECG of 05-FEB-2022 09:39, Premature supraventricular complexes are no longer Present Serial changes of evolving Anteroseptal infarct Present Referred By: Scott Salazar Electronically Signed By:MARY MUÑIZ MD
--- NOTE | 2022-02-05 11:40 | CA_ITS ---
Transthoracic Echocardiogram Patient (Last, First, Middle): Alycia Kerns, Gender: Female Date of : 1950 Age: 71 Procedure Date: 02/05/2022 Procedure Type: Transthoracic Echocardiogram Location: ICU Height: 162.56 cm Weight: 46.27 kg BSA: 1.47 m2 Heart Rate: bpm BP: 90 / 65 mmHg Licensed Veterinary Technician: DILCIA Referring MD: Scott Salazar Space Control Supervisor: Pradip Crane MD Symptoms: STEMI Study Quality: Technically Difficult ECG Rhythm: Sinus Conclusions: - 1. Moderate to severe LV systolic dysfunction with large area of wall motion abnormality in the LAD territory. Stress-induced cardiomyopathy cannot be entirely ruled out 2. Limited visualization of cardiac valve with normal cardiac valvular Doppler 3. Normal RV systolic pressure with suggestion of mildly elevated right atrial pressures 4. Small pericardial effusion near the right-sided chambers Findings Left Ventricle Normal left ventricular cavity size. There is normal left ventricular wall thickness. The left ventricular systolic function is moderate to severely decreased. The visually estimated ejection fraction is between 30-35%. Diastolic function is indeterminate on the basis of available data. Wall Motion Rest Echo Findings The basal inferior and mid inferior segments are hypokinetic. The entire apex, anteroseptal wall, the mid anterior, and mid inferoseptal segments are akinetic. All other scored wall segments showed normal motion. Right Ventricle Normal right ventricular cavity size. There is moderately decreased right ventricular systolic function. Atria The left atrium is normal in size. Interatrial shunt cannot be excluded. Aortic Valve The aortic valve was not well visualized. There is no aortic valve stenosis. There is no aortic valve regurgitation. Mitral Valve Likely normal mitral valve structure and function. There is trace mitral valve regurgitation. There is no mitral valve stenosis. Pulmonic Valve The pulmonic valve was not well visualized. Tricuspid Valve Likely normal tricuspid valve structure and function. There is mild tricuspid valve regurgitation. Mildly elevated right atrial pressure. There is no evidence of pulmonary hypertension. Great Vessels The aorta was not well visualized. The pulmonary artery was not well visualized. Venous The inferior vena cava is mildly dilated and collapses less than 50% with inspiration. Pericardium/Pleural There is a small loculated pericardial effusion overlying the right ventricle and right atrium. Prior Study Comparison No prior study available for comparison. Measurements 2D Linear Measurements IVSd: 1.24 0.6-0.9/0.6-1.0 cm LVIDd: 2.72 3.9-5.3/4.2-5.9 cm LVIDd Index: 1.85 2.4-3.2/2.2-3.1 cm/m2 LVIDs: 2.17 2.0-3.6 cm LVPWd: 0.89 0.7-1.1 cm LA Diam: 1.30 2.7-3.8/3.0-4.0 cm LAIDs Index: 0.88 1.5-2.3 cm/m2 LV Mass: 97.50 67-162/88-224 g LV Mass Index: 66.33 43-95/49-115 g/m2 LVOT Diam: 1.70 3.0+(-)1.3 cm 2D Systolic Function EF 4C: 44.70 >55% EF 2C: 28.90 >55% EF BiP: 34.20 >55% Mitral Valve MV Pk E: 0.88 MV PK A: 0.09 MV Decel Time: 129.00 E/A: 9.60 E'Lateral: 5.77 E'Medial: 3.15 E/E' Med: 28.00 E/E' Lat: 15.30 PHT: 38.00 MVA PHT: 5.79 Decel Glynn: 6.81 Aortic Valve AoV Pk Kris: 0.86 AoV Mn Kris: 0.64 AoV VTI: 0.11 AoV Pk Grad: 3.00 Aov Mn Grad: 2.00 ROXIE Cont.VTI: 1.63 LVOT LVOT Pk Kris: 0.70 LVOT Mn Kris: 0.45 LVOT VTI: 0.08 LVOT Pk Grad: 2.00 LVOT Mn Grad: 1.00 LVOT Diam: 1.70 LVOT Area: 2.27 Diastolic Function MV Pk E: 0.88 MV Pk A: 0.09 E/A: 9.60 E'Medial: 3.15 E/E' Med: 28.00 E' Laterial: 5.77 E/E' Lat: 15.30 Right Ventricle TAPSE (mm): 13.20 TVS' Kris: 9.17 Tricuspid Valve TR Pk Kris: 2.38 TR Pk Grad: 23.00 RA Press: 8.00 RVSP: 31.00 Great Vessels Aorta Sinus of Valsalva: 3.00 2.0-3.[address] [place]: 2.09 1.7-3.4 cm Updated in Other Vendor System with Status of Final Pradip Crane MD electronically signed on 02/05/2022 4:15:41 PM with status of Final
[2022-02-05 11:49] LABS: Troponin-I High Sensitivity 116.1 ng/L (<3.5-17.0)
[2022-02-05] MEDS: Heparin Sodium,Porcine/1/2NS 25,000 UNIT/250 ML IV.SOLN 5.57 UNIT IVCONT (12:10)
--- NOTE | 2022-02-05 12:10 | ECG_ITS ---
Test Reason : rhythm check Blood Pressure : / mmHG Vent. Rate : 118 BPM Atrial Rate : 118 BPM P-R Int : 130 ms QRS Dur : 074 ms QT Int : 328 ms P-R-T Axes : 080 -47 096 degrees QTc Int : 459 ms Sinus tachycardia Left axis deviation Anteroseptal infarct (cited on or before 04-FEB-2022) ACUTE OR / STEMI Abnormal ECG When compared with ECG of 05-FEB-2022 09:39, Premature supraventricular complexes are no longer Present Serial changes of evolving Anteroseptal infarct Present Referred By: Scott Salazar Electronically Signed By:MARY MUÑIZ MD
--- NOTE | 2022-02-05 12:59 | PC.NURSE ---
Addendum entered by Denton Gallegos RN 02/05/22 18:39: Pt brought to IR for CT of head - see report; ordered for Heparin to be resumed at 12units/kg/hr. Pt continued to require higher titration of Levophed gtt for MAPs in the high 50s-low 60s, HR elevated in the 120s, MD aware and Vasopressin gtt of 0.04 units/min initiated per order. BP as well as HR improved, able to titrate down on Levo per protocol. Pt was on sedation vacation from 1430 to 1610, responded well with neuro assessments, pt starting to be restless and pulling at tubes, requiring resedation. Pt received IV Albumin and Zosyn as ordered. MD reported pt to be transferred to [facility] for further monitoring and intervention. Report given to RN receiving. Ambulance personnel at bedside, report given and all questions answered. Pt left the unit with [facility] at 1840. Family updated by MD and aware of current status. Original Note: Shift eval 7a-7p - Assumed care of patient at 7am.?Patient remains intubated. Order to change concentration of levo by Radha Muir NP this morning. Order clarified w/ Radha. Received med from pharmacy & hung at approx 0920. Issue with pump - ran for 3 min at increase rate. BP up to 171/110, ST changes noted on monitor. Levophed fixed in the pump immediately. Dr Salazar called to bedside immediately - aware of issue with medication. Bedside echo & multiple EKG's done per MD order. Dr Salazar ordered to titrate prop & levo outside parameters at bedside?- see EMAR for titration details. ICU director, CNO & med director came to bedside as well. Nitro sublingual, statin, aspirin, & heparin drip ordered & given. Plan for transfer to tertiary facility r/t cardiac changes.? Verbal order to hold heparin at 1232, r/t CT of head ordered to rule out intracranial bleeding. Neuros assessed - pupils?equal and reactive at this time.? Continuing to wean levo, per Dr Salazar.?
--- NOTE | 2022-02-05 12:59 | PM.CCPN ---
Subjective Subjective Date of Service: 02/05/22 Interval History: Mrs. Kerns was transferred to ICU early this morning with septic shock and acute respiratory failure. The patient is a 71 yo F w PMHx of UTI, diverticulitis.? [facility] records show an episode of colitis last year.? Most recent outpatient records here since last month resport failure to thrive.? According to ED report here from 12/22/21, the patient's boyfriend of 40 years in 06/29, and since then the patient?s been going downhill, depressed not hungry, and gets nauseated when she eats.? Denied abdominal pain, diarrhea, blood in the stool.? The patient did say she was losing weight.? She lived at home with her son. She was subseq admitted [place] [facility] last month on Dec 30 bec of ongoing nausea, vomiting, and poor appetite over the prior few weeks.? She had a UTI and was tx w Rocephin.? She was dischg?d on Jan 06 w improved oral intake.? She had a stage I decubitus ulcer at that time.? She was reportedly transferred to a SNF.? On Jan 21 she was seen in f/u by GI in the office.? 5?2?, 100lbs.? Abdom CT showed bilateral ovarian cysts and probable uterine fibroid.? No clear etiology for her sx was identified, other than she was felt to be clearly depressed. On Feb 04, she was BIBA from home where she resides with her son with complaints of poor appetite, fatigue and lethargy for the past 1 week. She denied any fever, chills, shortness of breath, chest pain or palpitations, GI or symptoms. On her initial evaluation in the ED, she was found to have a temperature of 97.7?, HR 98, RR 16, BP 88/54, O2Sat 98% on RA. ?Clinically, she appeared to be malnourished and dehydrated.? WBC was 6, Hb was 13 (stable), BUN/creat 35/1.0 (18/0.7 two weeks earlier), Na 145, bicarb 24, phos and Mg low, alb 3.0, TSH 1.9.? EKG showed NSR w LAHB and PRWP V1-6 (no change from previous tracing). ?She was given 2L of fluid with improvement her blood pressure. ?It was decided that the patient would need rehab.? She was kept in the ED for case management and placement. Later that evening, the patient was noted to be hypothermic. ?2L sepsis protocol fluid bolus was ordered and a u/a ordered, but no BCs, lactate, or other bloodwork was done. ?The u/a showed >50 WBC, large LE, and 3+ bacteria. She was given ceftriaxone. ?Starting at midnight, she became progressively hypotensive, down as low as 60s.? No w/u was done. ?and received 2L bolus fluid. At that time, labs were significant for WBC count 6.2, BUN of 35, creatinine of 1.02, albumin of 3.3,? and she was positive for COVID-19. Chest x-ray shows well inflated lungs with no evidence of acute disease in the chest. At approx 0300, despite fluid resuscitation, she continued to be hypotensive, then suddenly became unresponsive. She was emergently intubated in the ER and was started on levophed and then transferred to the ICU. ?A CVC was placed in the right IJ.? Levophed dose was escalated.? Abx were continued.? 5AM labs showed stable Hb 13, normal CVBG, BUN/creat down to 25/0.7, good POC glucose, BNP 162.? No trop or EKG were done. By this morning at 9am, BP was about 120/70 on Levophed 0.7ug.? The Levophed bag was changed to quadruple concentration, but the computerized infusion pump was incorrectly programmed, so the volume drip rate was kept the same.? The next BP was 171/110.? That was immediately addressed and the error found.? (Estimate that she got the quadruple dose for 3 minutes).? At the same time it was noted on the bedside monitor that her ST segments looked elevated.? EKG done at [address] elevation V1-5, up to 10mm in lead V3, w tombstone sign.? The Levophed was turned off and she was given a subling NTG, followed by ASA.? BP dropped into the 80s and the Levophed was turned back on (at the appropriate dose).? Gave her high dose atorvastatin and 6.25mg oral metoprolol. My bedside echo shows normal LV and RV size.? LV is globally hypokinetic, with akinetic or dyskinetic apex.? EF 30-35%.? 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 RV function looked OK.? No significant MR by color vicky.? 1+ TR, with CWD jet 2.2 m/sec.? IVC measured 1.5 cm with 25% insp collapse. Troponins at 11am 116, repeat at 2pm 348.? Lactic acid 3.0.? CVBG 7.38/34/-3.? F/U EKGs show progressive decrease in the extent of the anterior ST segment elevation (all copied over to [facility]). Head CT done at 1330 showed no acute intracranial process.? We turned the propofol sedation off, and the patient awoke and and my command, open her eyes, turned her head towards me purposefully, and looked at me.? She tried grabbing her ETT. Ventilator setting AC 16/350/25%/+5, with RR 18, Ve 6.5L, PIP 17cm, ETCO2 25mm, Sat 100%. Current HR 110-120, SR.? BP 80/50.? On Levophed 0.7 ug. MICROBIOLOGY:? Blood cultures drawn 6am this morning in progress.? Urine culture sent 2200 last night in progress.? Urine culture from 12/30/21 grew a burris-sensitive E coli. ANTIBIOTICS:? Had been on ceftriaxone.? Because of refractory shock, I?ve changed her to Zosyn. IMPRESSION 1. Underlying PCM and failure to thrive. 2. Underlying depression. 3. Small stage 3 decubitus ulcer 4. UTI.? Most likely E.coli.? But now on Zosyn pending the urine culture. 5. Septic shock.? Continuing vol resuscitation with albumin.? Will add vasopressin. 6. 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 2? acute hypertensive episode.? Discussed at length with Dr. Crane here and with [facility] interventional cardiology (mult d/w Drs. Rice and Jules).? She will transfer to the [facility] CCU, for further w/u and mx. 7. Acute resp failure.? Mainly airway control and ventilation.? No oxygenation defect. 8. Tested COVID positive.? We don?t know the date of onset.? No evidence of COVID disease, but can?t rule out the possibility that any of her s/sx could be related to that. Please call the [place] ICU with any questions, . Critical Care Time (minutes): 150 Physical Exam Vital Signs: Vital Signs: Last Vital Signs Temp 97.7 F 02/05/22 12:00 Pulse 103 H 02/05/22 12:00 Resp 15 02/05/22 12:00 BP 110/73 02/05/22 12:00 Pulse Ox 98 02/05/22 12:00 O2 Del Method 02/05/22 12:00 FiO2 25 02/05/22 12:32 BMI result Body Mass Index 17.5 Objective Data Labs CBC & Chem 7: 02/05/22 05:27 02/05/22 05:27 Labs: Laboratory Results - last 24 hr 02/04/22 02/04/22 02/04/22 13:47 13:47 13:47 WBC 6.2 RBC 4.42 Hgb 13.1 Hct 39.7 MCV 89.8 MCH 29.6 MCHC 33.0 RDW 14.5 Plt Count 179 D MPV 10.9 Immature Gran % (Auto) 1.6 H Neut % (Auto) 73.0 Lymph % (Auto) 16.8 L [place] % (Auto) 7.3 Eos % (Auto) 0.8 Baso % (Auto) 0.5 Lymph # (Auto) 1.0 L [place] # (Auto) 0.5 Eos # (Auto) 0.1 Baso # (Auto) 0.0 Abs Immat Gran (auto) 0.10 H Absolute Neuts (auto) 4.5 Absolute Nucleated RBC 0.020 H Nucleated RBC % (auto) 0.3 H PT INR aPTT Heparin Protocol VBG pH VBG pCO2 VBG pO2 VBG HCO3 VBG O2 Saturation VBG Base Excess Sodium 145 Potassium 3.6 Chloride 92 L Carbon Dioxide 31 H Anion Gap 26 H BUN 35 H Creatinine 1.02 Estim Creat Clear Calc 35.7 Estimated GFR 53 Random Glucose 75 Lactic Acid Calcium 8.8 D Phosphorus Magnesium Total Bilirubin 0.6 AST 16 ALT 13 Alkaline Phosphatase 63 Troponin I High Sens B-Natriuretic Peptide Total Protein 5.5 L Albumin 3.3 L TSH Urine Color Urine Appearance Urine pH Ur Specific [place] Urine Protein Urine Glucose (UA) Urine Ketones Urine Blood Urine Nitrite Ur Leukocyte Esterase Urine RBC Urine WBC Ur Squamous Epith Cells Urine Bacteria Hyaline Casts Influenza Type A (PCR) NEGATIVE Influenza Type B (PCR) NEGATIVE RSV RNA Qual (PCR) NEGATIVE SARS-CoV-2 RNA (RT-PCR) POSITIVE A 02/04/22 02/04/22 02/04/22 13:47 13:47 19:29 WBC RBC Hgb Hct MCV MCH MCHC RDW Plt Count MPV Immature Gran % (Auto) Neut % (Auto) Lymph % (Auto) [place] % (Auto) Eos % (Auto) Baso % (Auto) Lymph # (Auto) [place] # (Auto) Eos # (Auto) Baso # (Auto) Abs Immat Gran (auto) Absolute Neuts (auto) Absolute Nucleated RBC Nucleated RBC % (auto) PT 10.4 INR 0.9 aPTT Heparin Protocol VBG pH VBG pCO2 VBG pO2 VBG HCO3 VBG O2 Saturation VBG Base Excess Sodium 143 Potassium 3.7 Chloride 98 Carbon Dioxide 26 Anion Gap 23 H BUN 31 H Creatinine 0.87 Estim Creat Clear Calc 41.9 Estimated GFR > 60 Random Glucose 65 Lactic Acid Calcium 8.0 L D Phosphorus Magnesium Total Bilirubin AST ALT Alkaline Phosphatase Troponin I High Sens 50.5 H* B-Natriuretic Peptide Total Protein Albumin TSH Urine Color Urine Appearance Urine pH Ur Specific [place] Urine Protein Urine Glucose (UA) Urine Ketones Urine Blood Urine Nitrite Ur Leukocyte Esterase Urine RBC Urine WBC Ur Squamous Epith Cells Urine Bacteria Hyaline Casts Influenza Type A (PCR) Influenza Type B (PCR) RSV RNA Qual (PCR) SARS-CoV-2 RNA (RT-PCR) 02/04/22 02/04/22 02/05/22 19:30 22:04 05:27 WBC 10.6 RBC 4.38 Hgb 13.1 Hct 39.4 MCV 90.0 MCH 29.9 MCHC 33.2 RDW 14.6 Plt Count 190 MPV 11.2 Immature Gran % (Auto) 1.0 H Neut % (Auto) 84.9 H Lymph % (Auto) 10.9 L [place] % (Auto) 2.1 Eos % (Auto) 0.7 Baso % (Auto) 0.4 Lymph # (Auto) 1.2 [place] # (Auto) 0.2 Eos # (Auto) 0.1 Baso # (Auto) 0.0 Abs Immat Gran (auto) 0.11 H Absolute Neuts (auto) 9.0 H Absolute Nucleated RBC 0.000 Nucleated RBC % (auto) 0.0 PT INR aPTT Heparin Protocol VBG pH VBG pCO2 VBG pO2 VBG HCO3 VBG O2 Saturation VBG Base Excess Sodium Potassium Chloride Carbon Dioxide Anion Gap BUN Creatinine Estim Creat Clear Calc Estimated GFR Random Glucose Lactic Acid Calcium Phosphorus Magnesium Total Bilirubin AST ALT Alkaline Phosphatase Troponin I High Sens 35.6 H B-Natriuretic Peptide Total Protein Albumin TSH Urine Color Yellow Urine Appearance Turbid Urine pH 6.0 Ur Specific [place] 1.015 Urine Protein Trace Urine Glucose (UA) Negative Urine Ketones 15 Urine Blood Trace H Urine Nitrite Negative Ur Leukocyte Esterase Large (3+) H Urine RBC 3-5 H Urine WBC >50 Ur Squamous Epith Cells 11-20 Urine Bacteria 3+ Hyaline Casts 0-2 Influenza Type A (PCR) Influenza Type B (PCR) RSV RNA Qual (PCR) SARS-CoV-2 RNA (RT-PCR) 02/05/22 02/05/22 02/05/22 05:27 05:27 05:27 WBC RBC Hgb Hct MCV MCH MCHC RDW Plt Count MPV Immature Gran % (Auto) Neut % (Auto) Lymph % (Auto) [place] % (Auto) Eos % (Auto) Baso % (Auto) Lymph # (Auto) [place] # (Auto) Eos # (Auto) Baso # (Auto) Abs Immat Gran (auto) Absolute Neuts (auto) Absolute Nucleated RBC Nucleated RBC % (auto) PT INR aPTT Heparin Protocol VBG pH VBG pCO2 VBG pO2 VBG HCO3 VBG O2 Saturation VBG Base Excess Sodium 146 H Potassium 3.0 L Chloride 101 Carbon Dioxide 24 Anion Gap 24 H BUN 25 H Creatinine 0.79 Estim Creat Clear Calc 47.1 Estimated GFR > 60 Random Glucose 144 H Lactic Acid 2.0 Calcium 8.3 L Phosphorus Magnesium Total Bilirubin 0.6 AST 19 ALT 14 Alkaline Phosphatase 62 Troponin I High Sens B-Natriuretic Peptide 162 H Total Protein 4.9 L Albumin 3.0 L TSH 1.90 Urine Color Urine Appearance Urine pH Ur Specific [place] Urine Protein Urine Glucose (UA) Urine Ketones Urine Blood Urine Nitrite Ur Leukocyte Esterase Urine RBC Urine WBC Ur Squamous Epith Cells Urine Bacteria Hyaline Casts Influenza Type A (PCR) Influenza Type B (PCR) RSV RNA Qual (PCR) SARS-CoV-2 RNA (RT-PCR) 02/05/22 02/05/22 02/05/22 05:27 05:27 11:10 WBC RBC Hgb Hct MCV MCH MCHC RDW Plt Count MPV Immature Gran % (Auto) Neut % (Auto) Lymph % (Auto) [place] % (Auto) Eos % (Auto) Baso % (Auto) Lymph # (Auto) [place] # (Auto) Eos # (Auto) Baso # (Auto) Abs Immat Gran (auto) Absolute Neuts (auto) Absolute Nucleated RBC Nucleated RBC % (auto) PT INR aPTT Heparin Protocol VBG pH 7.46 H VBG pCO2 32 VBG pO2 41 VBG HCO3 23 VBG O2 Saturation 71.0 VBG Base Excess 0.2 Sodium Potassium Chloride Carbon Dioxide Anion Gap BUN Creatinine Estim Creat Clear Calc Estimated GFR Random Glucose Lactic Acid 3.0 H* Calcium Phosphorus 2.5 L Magnesium 1.7 Total Bilirubin AST ALT Alkaline Phosphatase Troponin I High Sens B-Natriuretic Peptide Total Protein Albumin TSH Urine Color Urine Appearance Urine pH Ur Specific [place] Urine Protein Urine Glucose (UA) Urine Ketones Urine Blood Urine Nitrite Ur Leukocyte Esterase Urine RBC Urine WBC Ur Squamous Epith Cells Urine Bacteria Hyaline Casts Influenza Type A (PCR) Influenza Type B (PCR) RSV RNA Qual (PCR) SARS-CoV-2 RNA (RT-PCR) 02/05/22 02/05/22 02/05/22 11:10 11:10 11:19 WBC RBC Hgb Hct MCV MCH MCHC RDW Plt Count MPV Immature Gran % (Auto) Neut % (Auto) Lymph % (Auto) [place] % (Auto) Eos % (Auto) Baso % (Auto) Lymph # (Auto) [place] # (Auto) Eos # (Auto) Baso # (Auto) Abs Immat Gran (auto) Absolute Neuts (auto) Absolute Nucleated RBC Nucleated RBC % (auto) PT INR aPTT Heparin Protocol 25.5 L VBG pH 7.38 VBG pCO2 34 VBG pO2 54 VBG HCO3 20 L VBG O2 Saturation 81.0 VBG Base Excess -3.5 Sodium Potassium Chloride Carbon Dioxide Anion Gap BUN Creatinine Estim Creat Clear Calc Estimated GFR Random Glucose Lactic Acid Calcium Phosphorus Magnesium Total Bilirubin AST ALT Alkaline Phosphatase Troponin I High Sens 116.1 H* B-Natriuretic Peptide Total Protein Albumin TSH Urine Color Urine Appearance Urine pH Ur Specific [place] Urine Protein Urine Glucose (UA) Urine Ketones Urine Blood Urine Nitrite Ur Leukocyte Esterase Urine RBC Urine WBC Ur Squamous Epith Cells Urine Bacteria Hyaline Casts Influenza Type A (PCR) Influenza Type B (PCR) RSV RNA Qual (PCR) SARS-CoV-2 RNA (RT-PCR) Microbiology Microbiology Results: Microbiology 02/04/22 22:31 Urine clean catch - Urine fletcher top Urine Culture - Preliminary Culture in progress. Quality Stroke Does the patient have a stroke diagnosis?: No VTE Prior VTE?: No VTE Risk Level:: Medical - moderate - high VTE Device Contraindication: Treatment Not Indicated VTE Drug Contraindication: N/A - Med Ordered Critical Care Time Critical Care Time (minutes): 150
[2022-02-05 13:18] LABS: Reflex Lactate? Lactic Acid Added
--- NOTE | 2022-02-05 14:38 | PC.NURSE ---
Patient requesting to leave AMA - patient awake and alert, A&O x3, ate both breakfast and lunch. MD notified and at bedside. VSS. Patient educated on consequences of leave AMA by this RN and MD. Discharge instructions given to patient along with perscriptions which were sent electronically to pharmacy. Patient informed to come back to the ED with any new symptoms. Patient leaving via ambulance and states family will be at ther house to let her in. Both IV and monitor removed.
--- NOTE | 2022-02-05 15:06 | ECG_ITS ---
Test Reason : rhythm check Blood Pressure : / mmHG Vent. Rate : 117 BPM Atrial Rate : 117 BPM P-R Int : 144 ms QRS Dur : 078 ms QT Int : 342 ms P-R-T Axes : 078 -51 111 degrees QTc Int : 477 ms Sinus tachycardia Left axis deviation Anteroseptal infarct , possibly acute ACUTE OH / STEMI Abnormal ECG No previous ECGs available Referred By: Scott Salazar Electronically Signed By:MARY MUÑIZ MD
[2022-02-05] MEDS: Vasopressin 20 UNIT/100 ML INFUS..BTL 12 UNIT IV (16:16)
[2022-02-05] MEDS: Albumin Human 25 % 100 ML 200 ML IV ×2 (16:17→17:13)
[2022-02-05] MEDS: Piperacillin Sodium/Tazobactam 3.375 GM in 0.9 % Sodium Chloride 50 ML IV (16:24)
[2022-02-05 16:31] LABS: VBG Base Excess -2.5 mmol/L; VBG HCO3 20 mmol/L (22-26); VBG pCO2 31 mmHg; VBG pH 7.42 (7.32-7.43); VBG pO2 46 mmHg
[2022-02-05 16:43] LABS: Lactic Acid 3.6 mmol/L (0.5-2.0)
[2022-02-05 17:09] LABS: Cancel Lactic Acid Canceled
[2022-02-05] MEDS: propofoL 1,000 MG/100 ML VIAL 10.91 MG IVCONT (17:43)
[2022-02-05 18:10] LABS: Venous Blood Gas Refer to POC result
--- NOTE | 2022-02-08 17:10 | PM.DS ---
DS: Providers Provider Date of Service: 02/05/22 Date of admission: 02/04/22 23:34 Primary care physician: Araseli Arora MD DS: Transfer Hospital Acceptance Reason for Transfer: STEMI Name of Facility: [facility] DS: Diagnosis Discharge Diagnosis (1) Hypotension: Status: Acute (2) Lab test positive for detection of COVID-19 virus: Status: Acute (3) Acute UTI: Status: Acute (4) MAC (acute kidney injury): Status: Acute (5) Dehydration: Status: Acute (6) Generalized weakness: Status: Acute (7) Decubitus ulcer of sacral area: Status: Acute (8) Hypokalemia: Status: Acute (9) Hypophosphatemia: Status: Acute (10) Hypomagnesemia: Status: Acute (11) Hypothermia: Status: Acute (12) Adult failure to thrive: Status: Acute DS: Summary Hospital Course Hospital Course: DISCHARGE/TRANSFER SUMMARY DISCHARGE DIAGNOSES: 1. Underlying PCM and failure to thrive. 2. Underlying depression. 3. Small stage 3 decubitus ulcer 4. UTI. 5. Septic shock. 6. 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 2? acute hypertensive episode. 7. Acute resp failure. 8. Tested COVID positive. DISPOSITION:? Transferred to [facility] CCU February 05, 2022. The patient is a 71 yo F w PMHx of UTI, diverticulitis.? [facility] records show an episode of colitis in 2020.? Most recent outpatient records at [facility] since December, report failure to thrive.? According to [facility] ED report from 12/22/21, the patient's boyfriend of 40 years in 06/29, and since then the patient had been going downhill, depressed not hungry, and got nauseated when she ate.? Denied abdominal pain, diarrhea, blood in the stool.? The patient did say she was losing weight. ?She lived at home with her son. She was subseq admitted to [facility] Dec 30, 2021 bec of ongoing nausea, vomiting, and poor appetite over the prior few weeks.? She had a UTI and was tx w Rocephin.? She was dischg?d on Jan 06 w improved oral intake.? She had a stage I decubitus ulcer at that time.? She was reportedly transferred to a SNF.? On Jan 21 she was seen in f/u by GI in the office.? Ht 5?2?, weight 100lbs.? Abdom CT showed bilateral ovarian cysts and probable uterine fibroid.? No clear etiology for her sx was identified, other than she was felt to be clearly depressed. On Feb 04, she was BIBA from home where she resided with her son b/o poor appetite, fatigue and lethargy for the prior week. She denied any fever, chills, shortness of breath, chest pain or palpitations, GI or symptoms. On her initial evaluation in the ED, she was found to have a temperature of 97.7?, HR 98, RR 16, BP 88/54, O2Sat 98% on RA.? Clinically, she appeared to be malnourished and dehydrated.? WBC was 6, Hb was 13 (stable), BUN/creat 35/1.0 (18/0.7 two weeks earlier), Na 145, bicarb 24, phos and Mg low, alb 3.0, TSH 1.9.? EKG showed NSR w LAHB and PRWP V1-6 (no change from previous tracing).? She tested positive for COVID-19.? Chest x-ray showed well inflated lungs with no evidence of acute disease in the chest. ?She was given 2L of fluid with improvement her blood pressure. It was decided that the patient would need rehab.? She was kept in the ED for case management and placement. Later that evening, the patient was noted to be hypothermic.? 2L sepsis protocol fluid bolus was ordered and a u/a ordered, but no BCs, lactate, or other bloodwork was done.? The u/a showed >50 WBC, large LE, and 3+ bacteria. She was given ceftriaxone.? Starting at midnight, she became progressively hypotensive, down as low as 60s.? No w/u was done. At approx 0300, despite fluid resuscitation, she continued to be hypotensive, then suddenly had decreased mental status. ?She was emergently intubated in the ER and was started on levophed and then transferred to the ICU.? A CVC was placed in the right IJ.? Levophed dose was escalated.? Abx were continued.? 5AM labs showed stable Hb 13, normal CVBG, BUN/creat down to 25/0.7, good POC glucose, BNP 162.? No trop or EKG were done. The next morning, Feb 05, BP was about 120/70 on Levophed 0.7ug.? The Levophed bag was changed to quadruple concentration, but the computerized infusion pump was incorrectly programmed, so the volume drip rate was kept the same.? The next BP was 171/110.? That was immediately addressed and the error found.? At the same time it was noted on the bedside monitor that her ST segments looked elevated.? EKG done showed marked anter ST elevation V1-5, up to 10mm in lead V3, w tombstone sign.? The Levophed was turned off and she was given a subling NTG, followed by ASA, high dose atorvastatin, and 6.25mg oral metoprolol. Bedside echo showed normal LV and RV size.? LV was globally hypokinetic, with akinetic or dyskinetic apex.? EF 30-35%.? 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 RV function looked OK.? No significant MR by color vicky.? 1+ TR, with CWD jet 2.2 m/sec.? IVC measured 1.5 cm with 25% insp collapse. Troponins at 11am were 116, repeat at 2pm 348.? Lactic acid 3.0.? CVBG 7.38/34/-3.? F/U EKGs showed progressive decrease in the extent of the anterior ST segment elevation (all copied over to [facility]). Head CT done at 1330 showed no acute intracranial process.? We turned the propofol sedation off, and the patient awoke and followed my command, opened her eyes, turned her head towards me purposefully, and looked at me.? She tried grabbing her ETT. Ventilator setting AC 16/350/25%/+5, with RR 18, Ve 6.5L, PIP 17cm, ETCO2 25mm, Sat 100%. At about noon, HR 110-120, SR.? BP 80/50.? On Levophed 0.7 ug. MICROBIOLOGY:? Blood cultures and urine cultures were pending.? Urine culture from 12/30/21 was noted to have grown a burris-sensitive E coli. ANTIBIOTICS:? Because of refractory shock, ceftriaxone was changed her to Zosyn. Vol resuscitation was continued with albumin.? Vasopressin was added, with marked improvement in her blood pressure, reduction in the Levophed dose, and improvement in her heart rate. It was unclear whether EKG represented STEMI vs Takotzubo CMOP, 2? to the acute hypertensive episode.? This was discussed at length with Dr. Crane here and with [facility] interventional cardiology.? She was transferred to the [facility] CCU, for further w/u and mx. All the events above were discussed in detail with the patient's , who agreed with the transfer to [facility]. Time Spent with Patient Time attestation: Total time managing care of this patient today ____ minutes. Discharge coordination time: Less than 30 minutes Quality: Safe Use of Opioids Does Pt have an Active Cancer Diagnosis on the Problem List?: No Quality: Stroke Does the patient have a stroke diagnosis?: No Physical Exam Vital Signs: Vital Signs: Last Vital Signs Temp 98.6 F 02/05/22 18:00 Pulse 94 02/05/22 18:00 Resp 14 02/05/22 18:00 BP 108/59 L 02/05/22 18:00 Pulse Ox 100 02/05/22 18:00 O2 Del Method 02/05/22 18:00 FiO2 25 02/05/22 18:00 BMI result Body Mass Index 17.5 DS: Data Data Completed and Pending Labs on day of discharge: Preliminary micro results at discharge 02/05/22 06:01 Blood Culture - Preliminary Blood - Venous No growth after 48 hours. 02/05/22 06:00 Blood Culture - Preliminary Blood - Venous No growth after 48 hours. Discharge Plan Discharge Anticipated Discharge Date/Time: 02/05/22 17:19 Patient Disposition: Xfer Acute Care Hospital Discharge Diagnosis: Septic shock, STEMI Referrals: Araseli Arora MD [Primary Care Provider] - 1 Week Discharge Medications: Discontinued potassium chloride 10 mEq tablet extended release 10 meq PO DAILY Qty: 3 0RF mirtazapine 15 mg tablet 15 mg PO BEDTIME Discharge Orders: Discharge Order (Routine); Ordered 02/05/22 Ordered By: Scott Salazar Activity on Discharge: As tolerated Stand Alone Forms: Patient Portal Discharge page Care Plan Goals: Return to health Health Concerns: Resolve infection and heart issues Plan of Treatment: Per [facility] staff Assessment: Sepsis, STEMI Discharge Date/Time: 02/05/22 18:54
== END 2022-02-05 18:54 | disposition short-term general hospital (02) | DRG 871 ==
LOC: HO.ED 23:17 → HO.EDOVER 23:48 → HO.ICU 02-05 03:00
PROVIDERS: Nurse Practitioner Family; Student in an Organized Health Care Education/Training Program; Admitting Provider Internal Medicine; Emergency Provider Emergency Medicine; PCP Internal Medicine; Visit Provider Anesthesiology
DX: A41.9 Sepsis, unspecified organism (principal); I21.4 Non-ST elevation (NSTEMI) myocardial infarction; L89.153 Pressure ulcer of sacral region, stage 3; R65.21 Severe sepsis with septic shock; U07.1 COVID-19; J96.00 Acute respiratory failure, unspecified whether with hypoxia or hypercapnia; N39.0 Urinary tract infection, site not specified; E46 Unspecified protein-calorie malnutrition; N17.9 Acute kidney failure, unspecified; I51.81 Takotsubo syndrome; R62.7 Adult failure to thrive; E83.42 Hypomagnesemia; E83.39 Other disorders of phosphorus metabolism; R68.0 Hypothermia, not associated with low environmental temperature; E86.0 Dehydration; Z88.1 Allergy status to other antibiotic agents; Z88.8 Allergy status to other drugs, medicaments and biological substances
CPT/HCPCS: 0241U; 36415; 70450; 71045; 80048; 80053; 81001; 82803; 83605; 83735; 83880; 84100; 84443; 84484; 85025; 85610; 85730; 87040; 87086; 87088; 87186; 93005; 93306; 94002; 94799; 99285; C1758; J0696; J1940; J2543; J3475; P9047